=== PATIENT | male | born 1975 | race Caucasian/White ===

== ENCOUNTER 2018-02-19 08:22 | Emergency (ER) | END 2018-02-19 10:02 | disposition home or self-care (01) ==

== ENCOUNTER 2018-04-26 10:49 | Inpatient (IN) | END 2018-05-01 16:20 | disposition home health service (06) | DRG 629 ==

== ENCOUNTER 2018-05-15 17:23 | Emergency (ER) | END 2018-05-15 23:10 | disposition home or self-care (01) ==

== ENCOUNTER 2018-05-17 23:58 | Inpatient (IN) | END 2018-06-01 14:00 | disposition home health service (06) | DRG 907 ==

== ENCOUNTER 2019-04-21 20:24 | Inpatient (IN) | payer OTHER ==
[~2019-04-21] VITALS: Ht 157.5 cm; Wt 89.0 kg
[~2019-04-21 20:24] MED LIST: AMLO-147 PO; CIPR-193 PO; HYDR-3670 PO; Insulin Glargine SC; LACT1CAP56 PO; NOVO3I SC
[2019-04-21] MEDS ORDERED: SODIUM CHLORIDE 0.9% 1L BAG IV* STA (20:31)
[2019-04-21] MEDS ORDERED: PIPER-TAZO 3.375 GM IV (PMX) 100 ML IVPB STA (20:31)
[2019-04-21] MEDS ORDERED: morphine 10 MG INJ IV ONE (21:30)
[2019-04-21] MEDS: LINEZOLID 600 MG/300 ML (PMX) 300 ML IVPB SCH (21:36)
[2019-04-21] MEDS ORDERED: ACETAMINOPHEN 325 MG TAB PO PRN (22:30)
[2019-04-21] MEDS ORDERED: ONDANSETRON 4 MG INJ IV PRN (22:30)
--- NOTE | 2019-04-21 22:57 | ERD ---
ER Documentation Chief Complaint Chief Complaint PT has a diabetic ulcer to L foot and is seen at the amputation cllinic HPI 43-year-old male presenting with left foot wound that seems to be infected. It has been red and swollen for the past 1 week with associated fevers. He is complaining of mild pain, 5 out of 10, aching. He has a history of osteomyelitis of the right foot which was treated. He was being treated by Dr. Celestin for the left foot ulcer but was lost to followup due to psych issues. ROS All systems reviewed and are negative except as per history of present illness. Medications Home Meds Active Scripts [Insulin Glargine] 100 UNITS/ML SOLN No Conflict Check, 30 UNITS SC DAILY@0800 for 30 Days, #1 BOX 9 Refills Prov:PAT PINTO 06/01/18 Insulin Aspart* (Novolog Insulin Pen*) 100 Unit/Ml Soln, 7 UNIT SC WITH MEALS for 30 Days, #1 BOX 9 Refills Prov:PAT PINTO 06/01/18 Hydralazine Hcl* (Hydralazine Hcl*) 10 Mg Tablet, 10 MG PO Q8 for 30 Days, #90 TAB 3 Refills Prov:PAT PINTO 06/01/18 Amlodipine Besylate* (Amlodipine Besylate*) 10 Mg Tablet, 10 MG PO DAILY, #30 TAB 3 Refills Prov:PAT PINTO 06/01/18 Ciprofloxacin Hcl* (Ciprofloxacin Hcl*) 250 Mg Tablet, 250 MG PO DAILY@06 for 33 Days, #33 TAB Prov:PAT PINTO 06/01/18 Reported Medications Lactobacillus Combo No.11 (Probiotic) 1 Each Cap.sprink, 1 CAP PO DAILY, CAP 05/17/18 Allergies Allergies: Coded Allergies: vancomycin (Unverified Allergy, Unknown, 04/21/19) PMhx/Soc History of Surgery: Yes (Right ankle surgery, Right big toe I&D) Anesthesia Reaction: No Hx Neurological Disorder: No Hx Respiratory Disorders: No Hx Cardiac Disorders: Yes (HTN) Hx Psychiatric Problems: Yes (DEPRESSION, ANXIETY) Hx Miscellaneous Medical Probl: No Hx Alcohol Use: Yes (SOMETIMES) Hx Substance Use: Yes (MARIJUANA) Hx Tobacco Use: Yes Smoking Status: Former smoker FmHx Family History: No coronary disease Physical Exam Vitals Vital Signs Date Temp Pulse Resp B/P (MAP) Pulse Ox O2 O2 Flow FiO2 Time Delivery Rate 04/21/19 99.0 93 20 198/107 100 Room Air 21:43 (137) 04/21/19 92 16 182/100 100 Room Air 20:50 (127) 04/21/19 100.7 97 24 130/84 100 20:28 (99) Physical Exam Const: No acute distress Head: Atraumatic Eyes: Normal Conjunctiva ENT: Normal External Ears, Nose and Mouth. Neck: Full range of motion. No meningismus. Resp: Clear to auscultation bilaterally Cardio: Tachycardic rhythm, no murmurs Abd: Soft, non tender, non distended. Normal bowel sounds Skin: No petechiae or rashes Back: No midline or flank tenderness Ext: No cyanosis, or edema. Foul-smelling left foot ulcer at the base of the first metatarsophalangeal joint with surrounding erythema, swelling and underlying abscess. Wound is foul-smelling. Neur: Awake and alert Psych: Normal Mood and Affect Result Diagram: 04/21/19204404/21/192044 Results 24 hrs Laboratory Tests Test 04/21/19 20:45 04/21/19 20:48 White Blood Count 15.0 10^3/ul Red Blood Count 4.30 10^6/ul Hemoglobin 10.8 g/dl Hematocrit 32.7 % Mean Corpuscular Volume 76.0 fl Mean Corpuscular Hemoglobin 25.1 pg Mean Corpuscular Hemoglobin Concent 33.0 g/dl Red Cell Distribution Width 12.6 % Platelet Count 332 10^3/UL Mean Platelet Volume 10.8 fl Immature Granulocytes % 0.600 % Neutrophils % 78.4 % Lymphocytes % 12.2 % Monocytes % 7.4 % Eosinophils % 1.1 % Basophils % 0.3 % Nucleated Red Blood Cells % 0.0 /100WBC Immature Granulocytes # 0.090 10^3/ul Neutrophils # 11.7 10^3/ul Lymphocytes # 1.8 10^3/ul Monocytes # 1.1 10^3/ul Eosinophils # 0.2 10^3/ul Basophils # 0.0 10^3/ul Nucleated Red Blood Cells # 0.0 10^3/ul Erythrocyte Sedimentation Rate 126 mm/Hr Prothrombin Time 13.2 Sec Prothrombin Time Ratio 1.0 INR International Normalized Ratio 0.99 Activated Partial Thromboplast Time 29.4 Sec Sodium Level 133 mmol/L Potassium Level 4.3 mmol/L Chloride Level 96 mmol/L Carbon Dioxide Level 24 mmol/L Anion Gap 13 Blood Urea Nitrogen 21 mg/dl Creatinine 1.61 mg/dl Est Glomerular Filtrat Rate mL/min 48 mL/min Glucose Level 238 mg/dl Calcium Level 9.2 mg/dl Total Bilirubin 0.5 mg/dl Direct Bilirubin 0.00 mg/dl Indirect Bilirubin 0.5 mg/dl Aspartate Amino Transf (AST/SGOT) 31 IU/L Alanine Aminotransferase (ALT/SGPT) 22 IU/L Alkaline Phosphatase 205 IU/L C-Reactive Protein 24.6 mg/dl Total Protein 8.5 g/dl Albumin 4.0 g/dl Globulin 4.50 g/dl Albumin/Globulin Ratio 0.88 POC Venous Lactate 1.5 mmol/L Current Medications Medications Dose Sig/Varghese Start Time Status Last (Trade) Ordered Route PRN Stop Time Admin Dose Reason Admin Sodium 1,780 ml BOLUS OVER 2 04/21/19 DC 04/21/19 Chloride HOURS STAT 20:31 04/21/19 20:44 (NS) IV* 20:39 Piperacillin 100 ml @ ONCE STAT 04/21/19 DC 04/21/19 Sod/ 200 mls/hr IVPB 20:31 04/21/19 20:44 Tazobactam 21:00 Sod Linezolid 300 ml @ Q12 IVPB 04/21/19 04/21/19 300 mls/hr 21:00 21:36 Morphine 6 mg ONCE ONCE 04/21/19 DC Sulfate IV 21:30 04/21/19 (morphine) 21:31 Ondansetron 4 mg BRIDGE ORDER 04/21/19 HCl (Zofran PRN IV 22:30 04/22/19 Inj) NAUSEA/VOMITI 22:29 NG 650 mg ER BRIDGE 04/21/19 Acetaminophen PRN PO 22:30 04/22/19 (Tylenol .MILD PAIN 22:29 Tab) 1-3 OR TEMP Procedures/MDM EMERGENT LABS AND DIAGNOSTIC STUDIES: Lab Results above were reviewed and interpreted by me. CBC: Leukocytosis concerning for infection. Mild anemia CMP: Elevated creatinine, consistent with chronic renal insufficiency. Hyperglycemic without evidence of acidosis. No evidence of clinically significant electrolyte abnormality, acidosis, liver disease, or biliary obstruction Lactate within normal limits without evidence of sepsis or tissue hypoperfusion Elevated ESR and CRP, expected in the setting of infection 12-lead EKG was interpreted by Rivka Cutler MD: Normal Sinus Rhythm with ventricular rate of 91 beats per minute Normal axis Normal intervals No acute ST or T wave changes suggestive of acute ischemia or STEMI. Radiology Results as interpreted by Radiology below were reviewed by Mak Cutler MD: Chest x-ray shows no acute abnormalities X-ray foot shows no bony destruction, soft tissue swelling noted Initial Nursing notes reviewed. Previous Medical Records requested via the Electronic Health Record. EMERGENCY DEPARTMENT COURSE / MEDICAL DECISION MAKING: Patient presents with evidence of sepsis due to left foot infection. Sepsis work-up was initiated upon arrival. There is no evidence of severe sepsis or septic shock at this time. He has been treated with IV fluids and IV antibiotics. Patient will require admission for further workup, source control, and IV antibiotics. Accepting Care Team: Current data and ongoing care discussed. Time: Time of admission Primary Provider: Dr. Schmidt Outstanding Data: none Departure Diagnosis: Primary Impression: Cellulitis of left foot Additional Impressions: Chronic ulcer of left foot Non-pressure ulcer stage: unspecified non-pressure ulcer stage Qualified Codes: L97.529 - Non-pressure chronic ulcer of other part of left foot with unspecified severity Sepsis Sepsis type: sepsis due to unspecified organism Qualified Codes: A41.9 - Sepsis, unspecified organism CKD (chronic kidney disease) Chronic kidney disease stage: unspecified stage Qualified Codes: N18.9 - Chronic kidney disease, unspecified Condition: JAKY Avendano MD Apr 21, 2019 22:57
--- NOTE | 2019-04-21 23:46 | HP ---
Date/Time of Note Date/Time of Note DATE: 04/21/19 TIME: 23:46 Assessment/Plan VTE Prophylaxis SCD applied (from Nsg): Yes Pharmacological prophylaxis: heparin Lines/Catheters IV Catheter Type (from Nrsg): Saline Lock Assessment/Plan Assessment/Plan 1. Sepsis, as evidenced by fever and leukocytosis, secondary to left foot cellu litis/ulcer -IV antibiotic, IV fluid -Podiatry, ID and wound care consult -Need for MRI per podiatry 2. Left foot cellulitis/ulcer: See #1 3. CKD: Improving 4. Diabetes: Insulin while in-house 5. Hypertension: Continue home meds, adjust as needed 6. Depression/anxiety: He said this was the result of being fired from his job about a year ago. Currently he said he is feeling well. Result Diagram: 04/21/19204404/21/192044 Results 24hrs Laboratory Tests Test 04/21/19 20:45 04/21/19 20:48 04/21/19 22:54 White Blood Count 15.0 #H Red Blood Count 4.30 L Hemoglobin 10.8 L Hematocrit 32.7 L Mean Corpuscular Volume 76.0 L Mean Corpuscular Hemoglobin 25.1 L Mean Corpuscular Hemoglobin Concent 33.0 Red Cell Distribution Width 12.6 Platelet Count 332 # Mean Platelet Volume 10.8 H Immature Granulocytes % 0.600 H Neutrophils % 78.4 H Lymphocytes % 12.2 L Monocytes % 7.4 Eosinophils % 1.1 Basophils % 0.3 Nucleated Red Blood Cells % 0.0 Immature Granulocytes # 0.090 H Neutrophils # 11.7 H Lymphocytes # 1.8 Monocytes # 1.1 H Eosinophils # 0.2 Basophils # 0.0 Nucleated Red Blood Cells # 0.0 Erythrocyte Sedimentation Rate 126 H Prothrombin Time 13.2 Prothrombin Time Ratio 1.0 INR International Normalized Ratio 0.99 Activated Partial Thromboplast Time 29.4 Sodium Level 133 L Potassium Level 4.3 Chloride Level 96 L Carbon Dioxide Level 24 Anion Gap 13 Blood Urea Nitrogen 21 H Creatinine 1.61 H Est Glomerular Filtrat Rate mL/min 48 L Glucose Level 238 H Calcium Level 9.2 Total Bilirubin 0.5 Direct Bilirubin 0.00 Indirect Bilirubin 0.5 Aspartate Amino Transf (AST/SGOT) 31 Alanine Aminotransferase (ALT/SGPT) 22 Alkaline Phosphatase 205 H C-Reactive Protein 24.6 H Total Protein 8.5 H Albumin 4.0 Globulin 4.50 H Albumin/Globulin Ratio 0.88 POC Venous Lactate 1.5 Lactic Acid Level 1.3 HPI/ROS Admit Date/Time Admit Date/Time Hx of Present Illness Patient is a 51-year-old male with a history of hypertension, diabetes, CKD, depression/anxiety, right foot osteomyelitis who presents the ER complaining of left foot ulcer. He said that this problem is been going on for about a year. He said he had some ulceration which was made worse because of his previous working environment. 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 When he presented to ER, he was febrile with temperature 100.7, WBC 15,000. X- ray of the left foot shows Moderate cellulitis with subjacent emphysema in the first digit. PMH/Family/Social Past Medical History Medical History: other (See HPI) Medications Current Medications Linezolid 300 ml @ 300 mls/hr Q12 IVPB Last administered on 04/21/19at 21:36; Admin Dose 300 MLS/HR; Start 04/21/19 at 21:00 Ondansetron HCl (Zofran Inj) 4 mg BRIDGE ORDER PRN IV NAUSEA/VOMITING; Start 04/21/19 at 22:30; Stop 04/22/19 at 22:29 Acetaminophen (Tylenol Tab) 650 mg ER BRIDGE PRN PO .MILD PAIN 1-3 OR TEMP; Start 04/21/19 at 22:30; Stop 04/22/19 at 22:29 Coded Allergies: vancomycin (Unverified Allergy, Unknown, 04/21/19) Past Surgical History Past Surgical Hx: other (See HPI) Family History Significant Family History: no pertinent family hx Social History Alcohol Use: other Smoking Status: Former smoker Drug Use: other Exam/Review of Systems Vital Signs Vitals Vital Signs Date Temp Pulse Resp B/P (MAP) Pulse Ox O2 O2 Flow FiO2 Time Delivery Rate 04/21/19 99.0 93 20 198/107 100 Room Air 21:43 (137) Exam Constitutional: alert, oriented, well developed Head: normocephalic, atraumatic Eyes: EOMI, PERRL Respiratory: clear to auscultation, normal air movement Cardiovascular: regular rate and rhythm, nl pulses Gastrointestinal: soft, non-tender Extremities: other (Left foot cellulitis/ulcer) TANIA SESAY MD Apr 21, 2019 23:46
[2019-04-21] MEDS ORDERED: ONDANSETRON 4 MG INJ IV STA (23:57)
[2019-04-22] VITALS (21 sets, daily range): BP systolic 120–184; BP diastolic 70–103; PULSE 70–101; RESP 16–19; Ht 157.5 cm; Wt 89.0 kg
[2019-04-22] MEDS ORDERED: FAMOTIDINE 20 MG INJ IV ONE
[2019-04-22] MEDS ORDERED: LIDOCAINE/MYLANTA 40 ML BTL PO ONE
[2019-04-22] MEDS ORDERED: CHLO25TA2 PO (01:07)
[2019-04-22] MEDS ORDERED: GABA100C14 PO (01:07)
[2019-04-22] MEDS ORDERED: OXCA300T41 PO (01:07)
[2019-04-22] MEDS ORDERED: BUSP10TA2 PO (01:07)
[2019-04-22] MEDS ORDERED: MTF1000T PO (01:07)
[2019-04-22] MEDS ORDERED: LISI-471 PO (01:07)
[2019-04-22] MEDS ORDERED: INSU100I33 SC (01:10)
[2019-04-22] MEDS ORDERED: GLUCAGON 1 MG INJ IM PRN (01:30)
[2019-04-22] MEDS ORDERED: DEXTROSE 50% 50 ML SYRINGE IV PRN ×2 (01:30)
[2019-04-22] MEDS ORDERED: GLUCOSE GEL 15 GRAM TUBE BUCCAL PRN (01:30)
[2019-04-22] MEDS ORDERED: GLUCOSE GEL 15 GRAM TUBE PO PRN ×2 (01:30)
[2019-04-22] MEDS ORDERED: PENDING SANTYL ORDER FOR WOUND CARE XX PRN (02:00)
[2019-04-22] MEDS: ACCU-CHEK XX SCH (02:00)
[2019-04-22] MEDS: SOD CHLORIDE 0.9% 1,000 ML IV SCH ×4 (03:05→23:18)
[2019-04-22] MEDS ORDERED: GABAPENTIN 100 MG CAP PO ONE (04:30)
[2019-04-22] MEDS ORDERED: INSULIN ASPART [NOVOLOG] 3 ML PEN SC SCH ×2 (08:00→13:00)
[2019-04-22] MEDS: INSULIN GLARGINE [LANTus] (100 UNITS/ML) SYG SC SCH (08:28)
[2019-04-22] MEDS: INSULIN ASPART [NOVOLOG] 3 ML PEN SC SCH ×5 (08:28→21:03)
[2019-04-22] MEDS: BUSPIRONE 10 MG TAB PO SCH (08:58)
[2019-04-22] MEDS: OXCARBAZEPINE 300 MG TAB PO SCH ×2 (08:58→20:59)
[2019-04-22] MEDS: GABAPENTIN 100 MG CAP PO SCH ×3 (08:58→21:00)
[2019-04-22] MEDS: LINEZOLID 600 MG/300 ML (PMX) 300 ML IVPB SCH (08:59)
[2019-04-22] MEDS: CHLORTHALIDONE 25 MG TAB PO SCH (08:59)
[2019-04-22] MEDS: COLLAGENASE 5 GM (UD JAR) TOP SCH (08:59)
[2019-04-22] MEDS ORDERED: LISINOPRIL 20 MG TAB PO SCH (09:00)
[2019-04-22] MEDS ORDERED: AMLODIPINE 10 MG TAB PO SCH (09:00)
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
[2019-04-22] MEDS ORDERED: POLYMYXIN B 500000 UNIT INJ ONE (12:50)
[2019-04-22] MEDS ORDERED: BACITRACIN 50000 UNITS INJ ONE (12:51)
[2019-04-22] MEDS ORDERED: POLYMYXIN/BACITRACIN 1L IRRIG ONE (12:51)
[2019-04-22] MEDS: AMLODIPINE 5 MG TAB PO SCH (13:00)
--- NOTE | 2019-04-22 13:31 | HPN ---
Date/Time of Note Date/Time of Note DATE: 04/22/19 TIME: 13:31 Interval H&P Admission Note Pt. seen H&P reviewed: No system changes VINICIUS ARRIETA DPM Apr 22, 2019 13:31
--- NOTE | 2019-04-22 13:34 | PN ---
Date/Time of Note Date/Time of Note DATE: 04/22/19 TIME: 13:34 Assessment/Plan VTE Prophylaxis Risk score (from Ns)>0 risk: 4 SCD applied (from Ns): No Lines/Catheters IV Catheter Type (from [facility]): Peripheral IV Assessment/Plan Result Diagram: 04/22/19 0600 04/22/19 0600 Results 24hrs Laboratory Tests Test 04/21/19 20:45 04/21/19 20:48 04/21/19 22:54 04/22/19 00:54 White Blood Count 15.0 #H Red Blood Count 4.30 L Hemoglobin 10.8 L Hematocrit 32.7 L Mean Corpuscular Volume 76.0 L Mean Corpuscular 25.1 L Hemoglobin Mean Corpuscular 33.0 Hemoglobin Concent Red Cell Distribution 12.6 Width Platelet Count 332 # Mean Platelet Volume 10.8 H Immature Granulocytes % 0.600 H Neutrophils % 78.4 H Lymphocytes % 12.2 L Monocytes % 7.4 Eosinophils % 1.1 Basophils % 0.3 Nucleated Red Blood 0.0 Cells % Immature Granulocytes # 0.090 H Neutrophils # 11.7 H Lymphocytes # 1.8 Monocytes # 1.1 H Eosinophils # 0.2 Basophils # 0.0 Nucleated Red Blood 0.0 Cells # Erythrocyte 126 H Sedimentation Rate Prothrombin Time 13.2 Prothrombin Time Ratio 1.0 INR International 0.99 Normalized Ratio Activated 29.4 Partial Thromboplast Time Sodium Level 133 L Potassium Level 4.3 Chloride Level 96 L Carbon Dioxide Level 24 Anion Gap 13 Blood Urea Nitrogen 21 H Creatinine 1.61 H Est Glomerular Filtrat 48 L Rate mL/min Glucose Level 238 H Calcium Level 9.2 Total Bilirubin 0.5 Direct Bilirubin 0.00 Indirect Bilirubin 0.5 Aspartate Amino 31 Transf (AST/SGOT) Alanine 22 Aminotransferase (ALT/SG PT) Alkaline Phosphatase 205 H C-Reactive Protein 24.6 H Total Protein 8.5 H Albumin 4.0 Globulin 4.50 H Albumin/Globulin Ratio 0.88 POC Venous Lactate 1.5 Lactic Acid Level 1.3 Bedside Glucose 191 Test 04/22/19 00:56 04/22/19 05:56 04/22/19 06:00 04/22/19 08:03 Lactic Acid Level 1.1 Erythrocyte 108 H Sedimentation Rate C-Reactive Protein 21.5 H Procalcitonin 0.39 H White Blood Count 12.1 H Red Blood Count 3.91 L Hemoglobin 10.0 L Hematocrit 30.2 L Mean Corpuscular Volume 77.2 L Mean Corpuscular 25.6 L Hemoglobin Mean Corpuscular 33.1 Hemoglobin Concent Red Cell Distribution 12.7 Width Platelet Count 296 Mean Platelet Volume 11.0 H Immature Granulocytes % 0.700 H Neutrophils % 75.9 Lymphocytes % 12.9 L Monocytes % 9.4 Eosinophils % 0.7 Basophils % 0.4 Nucleated Red Blood 0.0 Cells % Immature Granulocytes # 0.080 H Neutrophils # 9.2 H Lymphocytes # 1.6 Monocytes # 1.1 H Eosinophils # 0.1 Basophils # 0.1 Nucleated Red Blood 0.0 Cells # Sodium Level 137 Potassium Level 4.3 Chloride Level 104 Carbon Dioxide Level 24 Anion Gap 9 Blood Urea Nitrogen 16 Creatinine 1.34 H Est Glomerular Filtrat 59 L Rate mL/min Glucose Level 205 Hemoglobin A1c 9.4 H Calcium Level 8.7 Total Bilirubin 0.4 Direct Bilirubin 0.00 Indirect Bilirubin 0.4 Aspartate Amino 25 Transf (AST/SGOT) Alanine 26 Aminotransferase (ALT/SG PT) Alkaline Phosphatase 151 H Total Protein 7.4 # Albumin 3.5 Globulin 3.90 H Albumin/Globulin Ratio 0.89 Triglycerides Level 142 Cholesterol Level 124 LDL Cholesterol, 77 Calculated HDL Cholesterol 19 L Cholesterol/HDL Ratio 6.5 Bedside Glucose 175 Test 04/22/19 12:46 Bedside Glucose 189 Exam/Review of Systems Exam Vitals Vital Signs Date Temp Pulse Resp B/P (MAP) Pulse Ox O2 O2 Flow FiO2 Time Delivery Rate 04/22/19 98.0 86 19 157/89 98 Room Air 08:00 (111) Intake and Output 04/21/19 04/21/19 04/22/19 1515:00 23:00 07:00 IntakeIntake Total 200 ml BalanceBalance 200 ml Results Results 24hrs Laboratory Tests Test 04/21/19 20:45 04/21/19 20:48 04/21/19 22:54 04/22/19 00:54 White Blood Count 15.0 #H Red Blood Count 4.30 L Hemoglobin 10.8 L Hematocrit 32.7 L Mean Corpuscular Volume 76.0 L Mean Corpuscular 25.1 L Hemoglobin Mean Corpuscular 33.0 Hemoglobin Concent Red Cell Distribution 12.6 Width Platelet Count 332 # Mean Platelet Volume 10.8 H Immature Granulocytes % 0.600 H Neutrophils % 78.4 H Lymphocytes % 12.2 L Monocytes % 7.4 Eosinophils % 1.1 Basophils % 0.3 Nucleated Red Blood 0.0 Cells % Immature Granulocytes # 0.090 H Neutrophils # 11.7 H Lymphocytes # 1.8 Monocytes # 1.1 H Eosinophils # 0.2 Basophils # 0.0 Nucleated Red Blood 0.0 Cells # Erythrocyte 126 H Sedimentation Rate Prothrombin Time 13.2 Prothrombin Time Ratio 1.0 INR International 0.99 Normalized Ratio Activated 29.4 Partial Thromboplast Time Sodium Level 133 L Potassium Level 4.3 Chloride Level 96 L Carbon Dioxide Level 24 Anion Gap 13 Blood Urea Nitrogen 21 H Creatinine 1.61 H Est Glomerular Filtrat 48 L Rate mL/min Glucose Level 238 H Calcium Level 9.2 Total Bilirubin 0.5 Direct Bilirubin 0.00 Indirect Bilirubin 0.5 Aspartate Amino 31 Transf (AST/SGOT) Alanine 22 Aminotransferase (ALT/SG PT) Alkaline Phosphatase 205 H C-Reactive Protein 24.6 H Total Protein 8.5 H Albumin 4.0 Globulin 4.50 H Albumin/Globulin Ratio 0.88 POC Venous Lactate 1.5 Lactic Acid Level 1.3 Bedside Glucose 191 Test 04/22/19 00:56 04/22/19 05:56 04/22/19 06:00 04/22/19 08:03 Lactic Acid Level 1.1 Erythrocyte 108 H Sedimentation Rate C-Reactive Protein 21.5 H Procalcitonin 0.39 H White Blood Count 12.1 H Red Blood Count 3.91 L Hemoglobin 10.0 L Hematocrit 30.2 L Mean Corpuscular Volume 77.2 L Mean Corpuscular 25.6 L Hemoglobin Mean Corpuscular 33.1 Hemoglobin Concent Red Cell Distribution 12.7 Width Platelet Count 296 Mean Platelet Volume 11.0 H Immature Granulocytes % 0.700 H Neutrophils % 75.9 Lymphocytes % 12.9 L Monocytes % 9.4 Eosinophils % 0.7 Basophils % 0.4 Nucleated Red Blood 0.0 Cells % Immature Granulocytes # 0.080 H Neutrophils # 9.2 H Lymphocytes # 1.6 Monocytes # 1.1 H Eosinophils # 0.1 Basophils # 0.1 Nucleated Red Blood 0.0 Cells # Sodium Level 137 Potassium Level 4.3 Chloride Level 104 Carbon Dioxide Level 24 Anion Gap 9 Blood Urea Nitrogen 16 Creatinine 1.34 H Est Glomerular Filtrat 59 L Rate mL/min Glucose Level 205 Hemoglobin A1c 9.4 H Calcium Level 8.7 Total Bilirubin 0.4 Direct Bilirubin 0.00 Indirect Bilirubin 0.4 Aspartate Amino 25 Transf (AST/SGOT) Alanine 26 Aminotransferase (ALT/SG PT) Alkaline Phosphatase 151 H Total Protein 7.4 # Albumin 3.5 Globulin 3.90 H Albumin/Globulin Ratio 0.89 Triglycerides Level 142 Cholesterol Level 124 LDL Cholesterol, 77 Calculated HDL Cholesterol 19 L Cholesterol/HDL Ratio 6.5 Bedside Glucose 175 Test 04/22/19 12:46 Bedside Glucose 189 Medications Medication Current Medications Linezolid 300 ml @ 300 mls/hr Q12 IVPB Last administered on 04/22/19at 08:59; Admin Dose 300 MLS/HR; Start 04/21/19 at 21:00 Ondansetron HCl (Zofran Inj) 4 mg BRIDGE ORDER PRN IV NAUSEA/VOMITING; Start 04/21/19 at 22:30; Stop 04/22/19 at 22:29 Acetaminophen (Tylenol Tab) 650 mg ER BRIDGE PRN PO .MILD PAIN 1-3 OR TEMP; Start 04/21/19 at 22:30; Stop 04/22/19 at 22:29 Diagnostic Test (Pha) (Accu-Chek) 1 ea 02 XX ; Start 04/22/19 at 02:00 Insulin Aspart (Novolog Insulin Pen) NOVOLOG *MILD* ALGORITHM WITH MEALS BEDTIME SC Last administered on 04/22/19at 08:29; Admin Dose 1 UNIT; Start 04/22/19 at 08:00 Miscellaneous Information 1 ea NOTE XX ; Start 04/22/19 at 01:30 Glucose (Glutose) 15 gm Q15M PRN PO DECREASED GLUCOSE; Start 04/22/19 at 01:30 Glucose (Glutose) 22.5 gm Q15M PRN PO DECREASED GLUCOSE; Start 04/22/19 at 01:30 Dextrose (D50w Syringe) 25 ml Q15M PRN IV DECREASED GLUCOSE; Start 04/22/19 at 01:30 Dextrose (D50w Syringe) 50 ml Q15M PRN IV DECREASED GLUCOSE; Start 04/22/19 at 01:30 Glucagon (Glucagen) 1 mg Q15M PRN IM DECREASED GLUCOSE; Start 04/22/19 at 01:30 Glucose (Glutose) 15 gm Q15M PRN BUCCAL DECREASED GLUCOSE; Start 04/22/19 at 01:30 Amlodipine Besylate (Norvasc) 10 mg DAILY PO Last administered on 04/22/19 08:59; Admin Dose 10 MG; Start 04/22/19 at 09:00 Buspirone HCl (Buspar) 10 mg DAILY PO Last administered on 04/22/19 08:58; Admi n Dose 10 MG; Start 04/22/19 at 09:00 Chlorthalidone (Hygroton) 25 mg DAILY PO Last administered on 04/22/19 08:59; Admin Dose 25 MG; Start 04/22/19 at 09:00 Gabapentin (Neurontin) 100 mg TID PO Last administered on 04/22/19 08:58; Admin Dose 100 MG; Start 04/22/19 at 09:00 Hydralazine HCl (Apresoline) 10 mg Q8 PO Last administered on 04/22/19 03:19; Admin Dose 10 MG; Start 04/22/19 at 02:00 Insulin Aspart (Novolog Insulin Pen) 7 unit WITH MEALS SC Last administered on 04/22/19 08:28; Admin Dose 7 UNIT; Start 04/22/19 at 07:35 Insulin Glargine (Lantus) 28 units WITH BREAKFAST SC Last administered on 04/22/19 08:28; Admin Dose 28 UNITS; Start 04/22/19 at 08:00 Lisinopril (Zestril) 20 mg DAILY PO Last administered on 04/22/19 08:59; Admin Dose 20 MG; Start 04/22/19 at 09:00 Oxcarbazepine (Trileptal) 300 mg BID PO Last administered on 04/22/19 08:58; Admin Dose 300 MG; Start 04/22/19 at 09:00 Sodium Chloride 1,000 ml @ 100 mls/hr Q10H IV Last administered on 04/22/19 03:05; Admin Dose 100 MLS/HR; Start 04/22/19 at 02:00 Miscellaneous Information (Pending Santyl Order For Wound Care) This patient mario... PRN PRN XX WOUND CARE; Start 04/22/19 at 02:00 Collagenase (Santyl) 1 applic DAILY TOP Last administered on 04/22/19 08:59; Admin Dose 1 APPLIC; Start 04/22/19 at 09:00 SUZIE CESPEDES NP Apr 22, 2019 13:34
[2019-04-22] MEDS ORDERED: SOD CHLORIDE 0.9% 500 ML IV ONE (14:00)
--- NOTE | 2019-04-22 14:08 | PN ---
Date/Time of Note Date/Time of Note DATE: 04/22/19 TIME: 14:07 Assessment/Plan VTE Prophylaxis Risk score (from Nsg)>0 risk: 4 SCD applied (from Ns): Yes SCD contraindicated: other (rt leg) Pharmacological prophylaxis: NA/contraindicated Pharm contraindication: surgical contra Lines/Catheters IV C[facility] Type (from [facility]): Peripheral IV Assessment/Plan Hospital Course SUBJECTIVE: Lying in bed, having low-grade fevers. OBJECTIVE: Vital signs-see below PHYSICAL EXAM: Constitutional: Adequately built,not in acute distress. HEENT: Head atraumatic and normocephalic. Eyes: Extraocular muscles intact. Anicteric sclerae. Pupils equal bilaterally, reactive to light. NECK: Supple without lymph node. CHEST: Clear and good breath sounds equally. No wheezing. No rhonchi. HEART: S1, S2. Regular rate and rhythm. ABDOMEN: Soft/non tender with no rebound tenderness. Bowel sounds were present. EXTREMITIES:Left hallux ulceration with erythema/swelling/macerated skin with foul order. DP/PT pulses palpable. NEUROLOGIC: Alert and oriented x3. No focal deficit. No sensory deficit. PSYCHOSOCIAL: No signs of depression. INTEGUMENTARY: No open wounds. ASSESSMENT AND PLAN:43 yo M w/dm2,rt foot om, admitted with left big toe ulceration and foot cellulitis.. Sepsis Source:left foot ulceration -Empiric antimicrobials and ID consultation for further antibiotic regimen. -Blood/urine/wound cultures Left foot gas gangrene/cellulitis -Appreciate podiatry consultation and plan is emergent I&D. -MRI and additional x-rays has been ordered. -broad spectrum abx-DC zyvox. Start merrem+dapto+clinda -ID consult requested. -Follow-up wound cultures. -Wound care LACEY vs CKD -Renal fxn improving on fluids -hold acei -cont. gentle hydration -monitor renal fxn -avoid nephrotoxins DMII -Basal/bolus insulin. -Carbohydrate controlled diet. Essential hypertension -hold acei 2/2 lacey -hydralazine 25 q8h,amlodipne 5 dvt ppx:hold atc today for possible OR. SCDs Rt leg. Dispo:f/u podiatry recs.devante needing OR patient was seen in collaboration with Result Diagram: 04/22/19 0600 04/22/19 0600 Results 24hrs Laboratory Tests Test 04/21/19 20:45 04/21/19 20:48 04/21/19 22:54 04/22/19 00:54 White Blood Count 15.0 #H Red Blood Count 4.30 L Hemoglobin 10.8 L Hematocrit 32.7 L Mean Corpuscular Volume 76.0 L Mean Corpuscular 25.1 L Hemoglobin Mean Corpuscular 33.0 Hemoglobin Concent Red Cell Distribution 12.6 Width Platelet Count 332 # Mean Platelet Volume 10.8 H Immature Granulocytes % 0.600 H Neutrophils % 78.4 H Lymphocytes % 12.2 L Monocytes % 7.4 Eosinophils % 1.1 Basophils % 0.3 Nucleated Red Blood 0.0 Cells % Immature Granulocytes # 0.090 H Neutrophils # 11.7 H Lymphocytes # 1.8 Monocytes # 1.1 H Eosinophils # 0.2 Basophils # 0.0 Nucleated Red Blood 0.0 Cells # Erythrocyte 126 H Sedimentation Rate Prothrombin Time 13.2 Prothrombin Time Ratio 1.0 INR International 0.99 Normalized Ratio Activated 29.4 Partial Thromboplast Time Sodium Level 133 L Potassium Level 4.3 Chloride Level 96 L Carbon Dioxide Level 24 Anion Gap 13 Blood Urea Nitrogen 21 H Creatinine 1.61 H Est Glomerular Filtrat 48 L Rate mL/min Glucose Level 238 H Calcium Level 9.2 Total Bilirubin 0.5 Direct Bilirubin 0.00 Indirect Bilirubin 0.5 Aspartate Amino 31 Transf (AST/SGOT) Alanine 22 Aminotransferase (ALT/SG PT) Alkaline Phosphatase 205 H C-Reactive Protein 24.6 H Total Protein 8.5 H Albumin 4.0 Globulin 4.50 H Albumin/Globulin Ratio 0.88 POC Venous Lactate 1.5 Lactic Acid Level 1.3 Bedside Glucose 191 Test 04/22/19 00:56 04/22/19 05:56 04/22/19 06:00 04/22/19 08:03 Lactic Acid Level 1.1 Erythrocyte 108 H Sedimentation Rate C-Reactive Protein 21.5 H Procalcitonin 0.39 H White Blood Count 12.1 H Red Blood Count 3.91 L Hemoglobin 10.0 L Hematocrit 30.2 L Mean Corpuscular Volume 77.2 L Mean Corpuscular 25.6 L Hemoglobin Mean Corpuscular 33.1 Hemoglobin Concent Red Cell Distribution 12.7 Width Platelet Count 296 Mean Platelet Volume 11.0 H Immature Granulocytes % 0.700 H Neutrophils % 75.9 Lymphocytes % 12.9 L Monocytes % 9.4 Eosinophils % 0.7 Basophils % 0.4 Nucleated Red Blood 0.0 Cells % Immature Granulocytes # 0.080 H Neutrophils # 9.2 H Lymphocytes # 1.6 Monocytes # 1.1 H Eosinophils # 0.1 Basophils # 0.1 Nucleated Red Blood 0.0 Cells # Sodium Level 137 Potassium Level 4.3 Chloride Level 104 Carbon Dioxide Level 24 Anion Gap 9 Blood Urea Nitrogen 16 Creatinine 1.34 H Est Glomerular Filtrat 59 L Rate mL/min Glucose Level 205 Hemoglobin A1c 9.4 H Calcium Level 8.7 Total Bilirubin 0.4 Direct Bilirubin 0.00 Indirect Bilirubin 0.4 Aspartate Amino 25 Transf (AST/SGOT) Alanine 26 Aminotransferase (ALT/SG PT) Alkaline Phosphatase 151 H Total Protein 7.4 # Albumin 3.5 Globulin 3.90 H Albumin/Globulin Ratio 0.89 Triglycerides Level 142 Cholesterol Level 124 LDL Cholesterol, 77 Calculated HDL Cholesterol 19 L Cholesterol/HDL Ratio 6.5 Bedside Glucose 175 Test 04/22/19 12:46 Bedside Glucose 189 Exam/Review of Systems Exam Vitals Vital Signs Date Temp Pulse Resp B/P (MAP) Pulse Ox O2 O2 Flow FiO2 Time Delivery Rate 04/22/19 98.0 86 19 157/89 98 Room Air 08:00 (111) Intake and Output 04/21/19 04/21/19 04/22/19 1515:00 23:00 07:00 IntakeIntake Total 200 ml BalanceBalance 200 ml Results Results 24hrs Laboratory Tests Test 04/21/19 20:45 04/21/19 20:48 04/21/19 22:54 04/22/19 00:54 White Blood Count 15.0 #H Red Blood Count 4.30 L Hemoglobin 10.8 L Hematocrit 32.7 L Mean Corpuscular Volume 76.0 L Mean Corpuscular 25.1 L Hemoglobin Mean Corpuscular 33.0 Hemoglobin Concent Red Cell Distribution 12.6 Width Platelet Count 332 # Mean Platelet Volume 10.8 H Immature Granulocytes % 0.600 H Neutrophils % 78.4 H Lymphocytes % 12.2 L Monocytes % 7.4 Eosinophils % 1.1 Basophils % 0.3 Nucleated Red Blood 0.0 Cells % Immature Granulocytes # 0.090 H Neutrophils # 11.7 H Lymphocytes # 1.8 Monocytes # 1.1 H Eosinophils # 0.2 Basophils # 0.0 Nucleated Red Blood 0.0 Cells # Erythrocyte 126 H Sedimentation Rate Prothrombin Time 13.2 Prothrombin Time Ratio 1.0 INR International 0.99 Normalized Ratio Activated 29.4 Partial Thromboplast Time Sodium Level 133 L Potassium Level 4.3 Chloride Level 96 L Carbon Dioxide Level 24 Anion Gap 13 Blood Urea Nitrogen 21 H Creatinine 1.61 H Est Glomerular Filtrat 48 L Rate mL/min Glucose Level 238 H Calcium Level 9.2 Total Bilirubin 0.5 Direct Bilirubin 0.00 Indirect Bilirubin 0.5 Aspartate Amino 31 Transf (AST/SGOT) Alanine 22 Aminotransferase (ALT/SG PT) Alkaline Phosphatase 205 H C-Reactive Protein 24.6 H Total Protein 8.5 H Albumin 4.0 Globulin 4.50 H Albumin/Globulin Ratio 0.88 POC Venous Lactate 1.5 Lactic Acid Level 1.3 Bedside Glucose 191 Test 04/22/19 00:56 04/22/19 05:56 04/22/19 06:00 04/22/19 08:03 Lactic Acid Level 1.1 Erythrocyte 108 H Sedimentation Rate C-Reactive Protein 21.5 H Procalcitonin 0.39 H White Blood Count 12.1 H Red Blood Count 3.91 L Hemoglobin 10.0 L Hematocrit 30.2 L Mean Corpuscular Volume 77.2 L Mean Corpuscular 25.6 L Hemoglobin Mean Corpuscular 33.1 Hemoglobin Concent Red Cell Distribution 12.7 Width Platelet Count 296 Mean Platelet Volume 11.0 H Immature Granulocytes % 0.700 H Neutrophils % 75.9 Lymphocytes % 12.9 L Monocytes % 9.4 Eosinophils % 0.7 Basophils % 0.4 Nucleated Red Blood 0.0 Cells % Immature Granulocytes # 0.080 H Neutrophils # 9.2 H Lymphocytes # 1.6 Monocytes # 1.1 H Eosinophils # 0.1 Basophils # 0.1 Nucleated Red Blood 0.0 Cells # Sodium Level 137 Potassium Level 4.3 Chloride Level 104 Carbon Dioxide Level 24 Anion Gap 9 Blood Urea Nitrogen 16 Creatinine 1.34 H Est Glomerular Filtrat 59 L Rate mL/min Glucose Level 205 Hemoglobin A1c 9.4 H Calcium Level 8.7 Total Bilirubin 0.4 Direct Bilirubin 0.00 Indirect Bilirubin 0.4 Aspartate Amino 25 Transf (AST/SGOT) Alanine 26 Aminotransferase (ALT/SG PT) Alkaline Phosphatase 151 H Total Protein 7.4 # Albumin 3.5 Globulin 3.90 H Albumin/Globulin Ratio 0.89 Triglycerides Level 142 Cholesterol Level 124 LDL Cholesterol, 77 Calculated HDL Cholesterol 19 L Cholesterol/HDL Ratio 6.5 Bedside Glucose 175 Test 04/22/19 12:46 Bedside Glucose 189 Medications Medication Current Medications Linezolid 300 ml @ 300 mls/hr Q12 IVPB Last administered on 04/22/19at 08:59; Admin Dose 300 MLS/HR; Start 04/21/19 at 21:00 Ondansetron HCl (Zofran Inj) 4 mg BRIDGE ORDER PRN IV NAUSEA/VOMITING; Start 04/21/19 at 22:30; Stop 04/22/19 at 22:29 Acetaminophen (Tylenol Tab) 650 mg ER BRIDGE PRN PO .MILD PAIN 1-3 OR TEMP; Start 04/21/19 at 22:30; Stop 04/22/19 at 22:29 Diagnostic Test (Pha) (Accu-Chek) 1 ea 02 XX ; Start 04/22/19 at 02:00 Insulin Aspart (Novolog Insulin Pen) NOVOLOG *MILD* ALGORITHM WITH MEALS BEDTIME SC Last administered on 04/22/19at 08:29; Admin Dose 1 UNIT; Start 04/22/19 at 08:00 Miscellaneous Information 1 ea NOTE XX ; Start 04/22/19 at 01:30 Glucose (Glutose) 15 gm Q15M PRN PO DECREASED GLUCOSE; Start 04/22/19 at 01:30 Glucose (Glutose) 22.5 gm Q15M PRN PO DECREASED GLUCOSE; Start 04/22/19 at 01:30 Dextrose (D50w Syringe) 25 ml Q15M PRN IV DECREASED GLUCOSE; Start 04/22/19 at 01:30 Dextrose (D50w Syringe) 50 ml Q15M PRN IV DECREASED GLUCOSE; Start 04/22/19 at 01:30 Glucagon (Glucagen) 1 mg Q15M PRN IM DECREASED GLUCOSE; Start 04/22/19 at 01:30 Glucose (Glutose) 15 gm Q15M PRN BUCCAL DECREASED GLUCOSE; Start 04/22/19 at 01:30 Amlodipine Besylate (Norvasc) 10 mg DAILY PO Last administered on 04/22/19at 08:59; Admin Dose 10 MG; Start 04/22/19 at 09:00 Buspirone HCl (Buspar) 10 mg DAILY PO Last administered on 04/22/19 08:58; Admin Dose 10 MG; Start 04/22/19 at 09:00 Chlorthalidone (Hygroton) 25 mg DAILY PO Last administered on 04/22/19 08:59; Admin Dose 25 MG; Start 04/22/19 at 09:00 Gabapentin (Neurontin) 100 mg TID PO Last administered on 04/22/19 08:58; Admin Dose 100 MG; Start 04/22/19 at 09:00 Hydralazine HCl (Apresoline) 10 mg Q8 PO Last administered on 04/22/19 03:19; Admin Dose 10 MG; Start 04/22/19 at 02:00 Insulin Aspart (Novolog Insulin Pen) 7 unit WITH MEALS SC Last administered on 04/22/19 08:28; Admin Dose 7 UNIT; Start 04/22/19 at 07:35 Insulin Glargine (Lantus) 28 units WITH BREAKFAST SC Last administered on 04/22/19 08:28; Admin Dose 28 UNITS; Start 04/22/19 at 08:00 Lisinopril (Zestril) 20 mg DAILY PO Last administered on 04/22/19 08:59; Admin Dose 20 MG; Start 04/22/19 at 09:00 Oxcarbazepine (Trileptal) 300 mg BID PO Last administered on 04/22/19 08:58; Admin Dose 300 MG; Start 04/22/19 at 09:00 Sodium Chloride 1,000 ml @ 100 mls/hr Q10H IV Last administered on 04/22/19 03:05; Admin Dose 100 MLS/HR; Start 04/22/19 at 02:00 Miscellaneous Information (Pending Santyl Order For Wound Care) This patient mario... PRN PRN XX WOUND CARE; Start 04/22/19 at 02:00 Collagenase (Santyl) 1 applic DAILY TOP Last administered on 04/22/19 08:59; Admin Dose 1 APPLIC; Start 04/22/19 at 09:00 SUZIE CESPEDES NP Apr 22, 2019 14:08
--- NOTE | 2019-04-22 14:09 | PREAC ---
Date/Time of Note Date/Time of Note DATE: 04/22/19 TIME: 14:07 Anesthesia Eval and Record Evaluation Time Pre-Procedure Interview DATE: 04/22/19 TIME: 14:07 Age 43 Sex male NPO: 2 hrs Preoperative diagnosis left foot infection Planned procedure I&D Past Medical History Past Medical History: Includes Cardio: HTN Endo: Diabetes Pulm: Smoking Hx Renal: CKD Heme: Anemia Psych: Depression, Anxiety Recreational drugs: Marijuana Surgery & Anesthesia Issues No known issue Meds Anticoagulation: No Beta Kelly within 24 hr: No Reason Beta Kelly not given: Pt. not on B-Kelly Active Scripts [Insulin Glargine] 100 UNITS/ML SOLN No Conflict Check, 30 UNITS SC DAILY@0800 for 30 Days, #1 BOX 9 Refills Prov:PAT PINTO 06/01/18 Insulin Aspart* (Novolog Insulin Pen*) 100 Unit/Ml Soln, 7 UNIT SC WITH MEALS for 30 Days, #1 BOX 9 Refills Prov:PAT PINTO 06/01/18 Hydralazine Hcl* (Hydralazine Hcl*) 10 Mg Tablet, 10 MG PO Q8 for 30 Days, #90 TAB 3 Refills Prov:PAT PINTO 06/01/18 Amlodipine Besylate* (Amlodipine Besylate*) 10 Mg Tablet, 10 MG PO DAILY, #30 TAB 3 Refills Prov:PAT PINTO 06/01/18 Ciprofloxacin Hcl* (Ciprofloxacin Hcl*) 250 Mg Tablet, 250 MG PO DAILY@06 for 33 Days, #33 TAB Prov:PAT PINTO 06/01/18 Reported Medications Insulin Glargine,Hum.rec.anlog (Basaglar Eliseikpen U-100) 100 Unit/1 Ml Insuln.pen, 28 UNIT SC WITH BREAKFAST, EA 04/22/19 Gabapentin* (Gabapentin*) 100 Mg Capsule, 100 MG PO TID, #90 CAP 04/22/19 Lisinopril* (Lisinopril*) 20 Mg Tablet, 20 MG PO DAILY, #30 TAB 04/22/19 Metformin* (Glucophage*) 1,000 Mg Tablet, 1000 MG PO WITH BREAKFAST DINNE, #30 TAB 04/22/19 Oxcarbazepine* (Oxcarbazepine*) 300 Mg Tablet, 300 MG PO BID, TAB 04/22/19 Buspirone Hcl* (Buspirone Hcl*) 10 Mg Tab, 10 MG PO DAILY, TAB 04/22/19 Chlorthalidone* (Chlorthalidone*) 25 Mg Tablet, 25 MG PO DAILY, TAB 04/22/19 Lactobacillus Combo No.11 (Probiotic) 1 Each Cap.sprink, 1 CAP PO DAILY, CAP 05/17/18 Current Medications Ondansetron HCl (Zofran Inj) 4 mg BRIDGE ORDER PRN IV NAUSEA/VOMITING; Start 04/21/19 at 22:30; Stop 04/22/19 at 22:29 Acetaminophen (Tylenol Tab) 650 mg ER BRIDGE PRN PO .MILD PAIN 1-3 OR TEMP; Start 04/21/19 at 22:30; Stop 04/22/19 at 22:29 Diagnostic Test (Pha) (Accu-Chek) 1 ea 02 XX ; Start 04/22/19 at 02:00 Miscellaneous Information 1 ea NOTE XX ; Start 04/22/19 at 01:30 Glucose (Glutose) 15 gm Q15M PRN PO DECREASED GLUCOSE; Start 04/22/19 at 01:30 Glucose (Glutose) 22.5 gm Q15M PRN PO DECREASED GLUCOSE; Start 04/22/19 at 01:30 Dextrose (D50w Syringe) 25 ml Q15M PRN IV DECREASED GLUCOSE; Start 04/22/19 at 01:30 Dextrose (D50w Syringe) 50 ml Q15M PRN IV DECREASED GLUCOSE; Start 04/22/19 at 01:30 Glucagon (Glucagen) 1 mg Q15M PRN IM DECREASED GLUCOSE; Start 04/22/19 at 01:30 Glucose (Glutose) 15 gm Q15M PRN BUCCAL DECREASED GLUCOSE; Start 04/22/19 at 01:30 Amlodipine Besylate (Norvasc) 10 mg DAILY PO Last administered on 04/22/19at 08:59; Admin Dose 10 MG; Start 04/22/19 at 09:00 Buspirone HCl (Buspar) 10 mg DAILY PO Last administered on 04/22/19at 08:58; Admin Dose 10 MG; Start 04/22/19 at 09:00 Chlorthalidone (Hygroton) 25 mg DAILY PO Last administered on 04/22/19at 08:59; Admin Dose 25 MG; Start 04/22/19 at 09:00 Gabapentin (Neurontin) 100 mg TID PO Last administered on 04/22/19 08:58; Admin Dose 100 MG; Start 04/22/19 at 09:00 Insulin Aspart (Novolog Insulin Pen) 7 unit WITH MEALS SC Last administered on 04/22/19 08:28; Admin Dose 7 UNIT; Start 04/22/19 at 07:35; Status Hold Insulin Glargine (Lantus) 28 units WITH BREAKFAST SC Last administered on 04/22/19 08:28; Admin Dose 28 UNITS; Start 04/22/19 at 08:00 Lisinopril (Zestril) 20 mg DAILY PO Last administered on 04/22/19 08:59; Admin Dose 20 MG; Start 04/22/19 at 09:00; Status Hold Oxcarbazepine (Trileptal) 300 mg BID PO Last administered on 04/22/19 08:58; Admin Dose 300 MG; Start 04/22/19 at 09:00 Sodium Chloride 1,000 ml @ 100 mls/hr Q10H IV Last administered on 04/22/19 03:05; Admin Dose 100 MLS/HR; Start 04/22/19 at 02:00 Miscellaneous Information (Pending Santyl Order For Wound Care) This patient mario... PRN PRN XX WOUND CARE; Start 04/22/19 at 02:00 Collagenase (Santyl) 1 applic DAILY TOP Last administered on 04/22/19 08:59; Admin Dose 1 APPLIC; Start 04/22/19 at 09:00 Hydralazine HCl (Apresoline) 25 mg Q8 PO ; Start 04/22/19 at 14:00 Insulin Aspart (Novolog Insulin Pen) NOVOLOG *MILD* ALGORI... Q4 SC ; Start 04/22/19 at 13:00 Amlodipine Besylate (Norvasc) 5 mg DAILY PO ; Start 04/22/19 at 13:00 Sodium Chloride 500 ml @ 500 mls/hr Q1H ONCE IV ; Start 04/22/19 at 14:00; Stop 04/22/19 at 14:59 Sodium Chloride 1,000 ml @ 100 mls/hr Q10H IV ; Start 04/22/19 at 14:00 Clindamycin HCl/ Dextrose 50 ml @ 50 mls/hr Q8 IVPB ; Start 7/8/19 at 14:00 Daptomycin 500 mg/ Sodium Chloride 100 ml @ 200 mls/hr Q24H IVPB ; Start 04/22/19 at 15:00 Meropenem/Sodium Chloride 50 ml @ 100 mls/hr Q8 IVPB ; Start 04/22/19 at 14:00; Status UNV Meds reviewed: Yes Allergies Coded Allergies: vancomycin (Unverified Allergy, Unknown, 04/21/19) Allergies Reviewed: Yes Labs/Studies Labs Reviewed: Reviewed by anesthesiologist Result Diagram: 04/22/19 0600 04/22/19 0600 Laboratory Tests 04/22/19 06:00 test: N/A Pre-procedure Exam Last vitals Vital Signs Date Temp Pulse Resp B/P (MAP) Pulse Ox O2 O2 Flow FiO2 Time Delivery Rate 04/22/19 98.6 84 16 146/83 99 Room Air 13:29 (104) Airway: Adequate mouth opening, Adequate thyromental dist Mallampati: Mallampati III Teeth: Normal Lung: Normal Heart: Normal ASA Physical Status ASA physical status: 3 Emergency: E Pre-operative Attestations Prior to commencing anesthesia and surgery, the patient was re-evaluated, there was verification of: *The patient's identity *The results of appropriate recent lab work and preoperative vital signs *The above evaluation not changing prior to induction *Anesthetic plan, risk benefits, alternative and complications discussed with patient/family; questions answered; patient/family understands, accepts and wishes to proceed. PANTERA ACEVES DO Apr 22, 2019 14:08
[2019-04-22] MEDS ORDERED: KETAMINE (50 MG/ML) 10 ML VIAL ONE (14:20)
[2019-04-22] MEDS ORDERED: MIDAZOLAM 1 MG/ML 2 ML INJ ONE (14:20)
[2019-04-22] MEDS ORDERED: FENTAnyl 50 MCG/ML VIAL ONE (14:22)
[2019-04-22] MEDS ORDERED: CEFAZOLIN 1 GM INJ ONE (14:23)
[2019-04-22] MEDS ORDERED: HYDROmorphONE 1 MG/5 ML IV SYRINGE IV PRN ×2 (14:30)
[2019-04-22] MEDS ORDERED: ROPIVACAINE 0.5 % 30 ML VIAL ONE (14:37)
--- NOTE | 2019-04-22 15:26 | SIPON ---
Date/Time of Note Date/Time of Note DATE: 04/22/19 TIME: 15:26 Operative Report Preoperative Diagnosis Left foot gas gangrene Left lower extremity cellulitis Left foot diabetic foot ulcer DM2 with peripheral neuropathy left foot osteomyelitis Postoperative Diagnosis Left foot gas gangrene Left lower extremity cellulitis Left foot diabetic foot ulcer DM2 with peripheral neuropathy left foot osteomyelitis Operation/Procedure Performed Left foot incision and drainage left foot excisional debridement Surgeon see signature line public aid eligibility assistant none Anesthesia: spinal Estimated blood loss: 10 - 50 ml's Transfusion Required none Specimen left foot pre and post lavage cultures Left foot bone pathology Grafts/Implants none Complications none VINICIUS ARRIETA DPM Apr 22, 2019 15:26
--- NOTE | 2019-04-22 15:28 | OPR ---
Date/Time of Note Date/Time of Note DATE: 04/22/19 TIME: 15:28 Operative Report Preoperative Diagnosis Left foot gas gangrene Left lower extremity cellulitis Left foot diabetic foot ulcer DM2 with peripheral neuropathy left foot osteomyelitis Postoperative Diagnosis Left foot gas gangrene Left lower extremity cellulitis Left foot diabetic foot ulcer DM2 with peripheral neuropathy left foot osteomyelitis Operation/Procedure Performed Left foot incision and drainage left foot excisional debridement Surgeon see signature line Triage Assistant none Anesthesia Type: epidural Estimated Blood Loss: 10 - 50 ml's Transfusion none Specimen left foot pre and post lavage cultures Left foot bone pathology Grafts/Implants none Complications none Indications 43 y/o diabetic M patient presented to the hospital with a left foot gas gangrene infection. Pre operative ankle and tib fib x-rays were obtained and there was no ascending soft tissue gas/emphysema. Discussed emergent surgical intervention with the patient and was amenable to the procedure. Discussed with patient that there will be staged interventions to control the infection and attempt to obtain wound closure. All of the patient's questions and concerns w ere addressed. No promises or guarantees were given. Procedure Description Patient was brought into the OR and placed in the supine position. A pre operative spinal block was provided by the anesthesia team. The left lower extremity was scrubbed, prepped, and draped in the usual aseptic manner. A formal time out was conducted. Attention was directed to the left foot, there was a plantar left hallux fibronecrotic ulceration measured 2 x 1 x 0.4cm. There was foul odor and a tunneling wound to the proximal aspect of the plantar medial hallux 2-3cm. The ulcer probed to bone. The ulcer also communicated to the dorsal lateral aspect of the hallux which measured 3 x 3 x 1.5cm, there was also tunneling towards the plantar 1st webspace and laterally towards the dorsal aspect of the left foot 3cm also in the plantar aspect towards the 2nd metatarsal. An incision and drainage was performed to the left foot ulceration site extending towards the dorsal and plantar 1st webspace. Using blunt dissection the tunneling wound sites were dilated. total of 10mLs of purulent drainage was expressed from the wound site. There was also muddy-brown discharge appreciated with the purulent drainage. Excisional debridement of skin/subQ/muscle/tendon was performed using pickup/scissors and rongeurs. Post debridement wound measurement was 6 x 3 x 1.5cm where hallux and 2nd metatarsal bone could be probed. Bone biopsy was obtained of the left foot and sent for pathology studies. 18cm2 of area was debrided. Necrotic and fibrotic tissue was removed along with further purulent drainage. Using antibiotic infused pulse lavage copious irrigation was used at the infected ulceration site of the left foot. Polymixin and bacitracin antibiotic powder was packed into the left foot ulceration site. 1/4in iodoform packing was also applied to the left foot ulceration sit with betadine soaked 4x4 gauze, kerlix and rosetta wrap. Pre and post lavage wound cultures were obtained. Anesthesia performed an ankle block under sterile technique. Patient was transferred to PACU with vital signs stable and neurovascular status intact. VINICIUS ARRIETA DPM Apr 22, 2019 15:28
--- NOTE | 2019-04-22 15:29 | PAC ---
Date/Time of Note Date/Time of Note DATE: 04/22/19 TIME: 15:29 Post-Anesthesia Notes Post-Anesthesia Note Last documented vital signs Vital Signs Date Temp Pulse Resp B/P (MAP) Pulse Ox O2 O2 Flow FiO2 Time Delivery Rate 04/22/19 98 80 18 145/60 99 Room Air 1530 Activity: WNL Respiratory function: WNL Cardiovascular function: WNL Mental status: Baseline Pain reasonably controlled: Yes Hydration appropriate: Yes Nausea/Vomiting absent: Yes PANTERA ACEVES DO Apr 22, 2019 15:29
--- NOTE | 2019-04-22 16:25 | CONS ---
DATE OF ADMISSION: 04/21/2019 DATE OF CONSULTATION: 04/22/2019 TYPE OF CONSULTATION: Infectious Disease. REASON FOR CONSULTATION: Antibiotic management. HISTORY OF PRESENT ILLNESS: Caio Taveras is a 43-year-old male with history of diabetic ulcer to th e left foot, who is [facility]. He comes in with a left foot wound which is infected. It is red and swollen over the past week with associated fevers. He also compla ins of pain, 5/10. He has a history of osteomyelitis of the right foot which was treated. Dr. Baltazar peace was treating the left foot. He has history of right ankle surgery, right big toe I and D. He h as history of hypertension, anxiety and depression. FAMILY HISTORY: Noncontributory. SOCIAL HISTORY: He is sometimes drinks alcohol. He is a former smoker. He uses marijuana. ALLERGIES: VANCOMYCIN. MEDICATIONS: Per chart. REVIEW OF SYSTEMS: Noncontributory. His white count was 15,000, H and H of 10.8 and 32.7, platelet count 332,000. BUN and creatinine 21/ 1.61, glucose of 238,000. He has 78% neutrophils. The patient was seen in consultation by Dr. Celestin today. The patient was kept n.p.o. He is supp osed to go for emergency surgery. Continue IV antibiotics. There is soft tissue gas on the left arvind t x-rays. Wound culture was obtained by Dr. Celestin and patient was placed on linezolid because HE IS ALLERGIC TO PENICILLIN. He had previous wound debridements. His white count today is 12.1. His urinalysis is negative. Foot x-ray shows moderate cellulitis with subjacent emphysema in the first digit. No definite erosive changes seen in the first digit on the right foot. There is clinical con cern for osteomyelitis. MRI is recommended. Chest x-ray showed no evidence of acute cardiopulmonary disease. Tibia and fibula x-ray was negative, no acute abnormality. Ankle x-rays was also noncontr ibutory. PHYSICAL EXAMINATION: GENERAL: The patient is asked alert, responsive, in no acute distress. VITAL SIGNS: Stable. T-max 100.7. SKIN: Without generalized rash. HEENT: Within normal limits. NECK: Supple. LYMPH NODES: None palpable. CHEST: Decreased breath sounds at the bases. HEART: Without murmur or gallop. ABDOMEN: Soft, nontender, without organosplenomegaly or masses. EXTREMITIES: Without cyanosis or clubbing. He has the left hallux ulceration with erythema. The ri ght hallux with erythema, swelling and macerated skin. RECTAL AND GENITAL: Deferred. NEUROLOGIC: No focal neurological abnormalities. IMPRESSION: The patient was started on meropenem, daptomycin and clindamycin. An ID consult was req uested. The patient is going for surgery. I will dictate my findings to the hospitalist and to Dr. Celestin. Dictated By: ADELINA ROBBINS MD, JD/NTS Conf#: [id number] DID#: [id number] CC: TANIA SESAY MD;*End*
[2019-04-22] MEDS ORDERED: hydrALAzine 20 MG INJ IV PRN (16:30)
[2019-04-22] MEDS ORDERED: hydrALAzine 20 MG INJ IV ONE (16:30)
[2019-04-22] MEDS: MEROPENEM 1 GM/50ML(PMX) 50 ML IVPB SCH ×2 (18:05→22:29)
[2019-04-22] MEDS: DAPTOMYCIN 500 MG in SOD CHLORIDE 0.9% 100 ML IVPB SCH (20:34)
[2019-04-22] MEDS ORDERED: ACETAMINOPHEN 325 MG TAB ONE ×2 (20:42)
[2019-04-22] MEDS: ACETAMINOPHEN 325 MG TAB PO PRN (21:04)
[2019-04-22] MEDS: CLINDAMYCIN 600 MG/D5W (PMX) 50 ML IVPB SCH ×2 (21:29→23:17)
[2019-04-22] MEDS ORDERED: morphine 2 MG INJ IV PRN (21:30)
[2019-04-22] MEDS ORDERED: traZODone 50 MG TAB ONE (21:43)
[2019-04-22] MEDS ORDERED: ONDANSETRON 4 MG INJ ONE (21:43)
[2019-04-22] MEDS: traZODone 50 MG TAB PO SCH (21:45)
[2019-04-22] MEDS ORDERED: ONDANSETRON 4 MG INJ IV PRN (22:00)
[2019-04-22] MEDS ORDERED: IBUPROFEN 400 MG TAB PO PRN (23:30)
[2019-04-23 02:00] VITALS: BP 128/71; PULSE 78; RESP 19
[2019-04-23] MEDS: ACCU-CHEK XX SCH (02:08)
[2019-04-23] MEDS: MEROPENEM 1 GM/50ML(PMX) 50 ML IVPB SCH ×3 (05:02→21:48)
[2019-04-23] MEDS: CLINDAMYCIN 600 MG/D5W (PMX) 50 ML IVPB SCH ×2 (05:02→14:26)
[2019-04-23 08:03] VITALS: BP 117/63; PULSE 71; RESP 18
[2019-04-23] MEDS: CHLORTHALIDONE 25 MG TAB PO SCH (08:05)
[2019-04-23] MEDS: AMLODIPINE 5 MG TAB PO SCH (08:05)
[2019-04-23] MEDS: BUSPIRONE 10 MG TAB PO SCH (08:06)
[2019-04-23] MEDS: OXCARBAZEPINE 300 MG TAB PO SCH ×2 (08:06→20:40)
[2019-04-23] MEDS: GABAPENTIN 100 MG CAP PO SCH ×3 (08:06→20:40)
[2019-04-23] MEDS: INSULIN GLARGINE [LANTus] (100 UNITS/ML) SYG SC SCH (08:07)
[2019-04-23] MEDS: INSULIN ASPART [NOVOLOG] 3 ML PEN SC SCH ×7 (08:08→21:30)
[2019-04-23] MEDS: COLLAGENASE 5 GM (UD JAR) TOP SCH (08:09)
--- NOTE | 2019-04-23 09:10 | PN ---
Date/Time of Note Date/Time of Note DATE: 04/23/19 TIME: 09:02 Assessment/Plan VTE Prophylaxis Risk score (from Ns)>0 risk: 4 SCD applied (from Ns): No SCD contraindicated: other Pharmacological prophylaxis: heparin Lines/Catheters IV Catheter Type (from [facility]): Peripheral IV Assessment/Plan Hospital Course SUBJECTIVE:Had fevers last night. currently afebrile.doing well. no pain on left foot. OBJECTIVE: Vital signs-see below PHYSICAL EXAM: Constitutional: Adequately built,not in acute distress. HEENT: Head atraumatic and normocephalic. Eyes: Extraocular muscles intact. Anicteric sclerae. Pupils equal bilaterally, reactive to light. NECK: Supple without lymph node. CHEST: Clear and good breath sounds equally. No wheezing. No rhonchi. HEART: S1, S2. Regular rate and rhythm. ABDOMEN: Soft/non tender with no rebound tenderness. Bowel sounds were present. EXTREMITIES:L foot bandaged. NEUROLOGIC: Alert and oriented x3. No focal deficit. No sensory deficit. PSYCHOSOCIAL: No signs of depression. INTEGUMENTARY: No open wounds. ASSESSMENT AND PLAN:43 yo M w/dm2,rt foot om, admitted with left big toe ulceration and foot cellulitis.. Sepsis Source:left foot ulceration w/gas gangrene -clinically improving on current antimicrobials -f/u cultures Left foot gas gangrene/cellulitis -Appreciate excellent care of . s/p emergent I&D w/excisional debridement in OR 04/23/19 -cont. broad spectrum abx (merrem+dapto+clinda) -Follow-up cultures,MRI -Wound care LACEY on CKD -Renal fxn back to normal after fluid challenge. -resume acei as renal fxn permits -monitor DMII -Basal/bolus insulin-adjust for optimal control to allow wound healing -Carbohydrate controlled diet. Essential hypertension -resume acei -cont. hydralazine/amlodipine -dc thiazide dvt ppx:start heparin if ok w/surgical standpoint Dispo:cont.current mgmt. F/u culture. await for clinical improvement. patient was seen in collaboration with Result Diagram: 04/23/19 0535 04/23/19 0535 Results 24hrs Laboratory Tests Test 04/22/19 12:46 04/22/19 17:29 04/22/19 20:57 04/23/19 02:08 Bedside Glucose 189 206 201 156 Test 04/23/19 05:35 04/23/19 07:56 White Blood Count 12.9 H Red Blood Count 3.93 L Hemoglobin 10.0 L Hematocrit 30.5 L Mean Corpuscular Volume 77.6 L Mean Corpuscular 25.4 L Hemoglobin Mean Corpuscular 32.8 Hemoglobin Concent Red Cell Distribution 12.8 Width Platelet Count 348 Mean Platelet Volume 10.8 H Immature Granulocytes % 0.800 H Neutrophils % 77.0 Lymphocytes % 11.8 L Monocytes % 8.5 Eosinophils % 1.6 Basophils % 0.3 Nucleated Red Blood 0.0 Cells % Immature Granulocytes # 0.100 H Neutrophils # 9.9 H Lymphocytes # 1.5 Monocytes # 1.1 H Eosinophils # 0.2 Basophils # 0.0 Nucleated Red Blood 0.0 Cells # Sodium Level 137 Potassium Level 4.1 Chloride Level 104 Carbon Dioxide Level 23 Anion Gap 10 Blood Urea Nitrogen 14 Creatinine 1.12 Est Glomerular Filtrat > 60 Rate mL/min Glucose Level 165 Calcium Level 8.7 Magnesium Level 1.7 Creatine Kinase 83 Bedside Glucose 171 Exam/Review of Systems Exam Vitals Vital Signs Date Temp Pulse Resp B/P (MAP) Pulse Ox O2 O2 Flow FiO2 Time Delivery Rate 04/23/19 98.4 71 18 117/63 98 Room Air 08:03 (81) Intake and Output 04/22/19 04/22/19 04/23/19 1515:00 23:00 07:00 IntakeIntake Total 1700 ml 1650 ml 500 ml OutputOutput Total 500 ml 50 ml 600 ml BalanceBalance 1200 ml 1600 ml -100 ml Results Results 24hrs Laboratory Tests Test 04/22/19 12:46 04/22/19 17:29 04/22/19 20:57 04/23/19 02:08 Bedside Glucose 189 206 201 156 Test 04/23/19 05:35 04/23/19 07:56 White Blood Count 12.9 H Red Blood Count 3.93 L Hemoglobin 10.0 L Hematocrit 30.5 L Mean Corpuscular Volume 77.6 L Mean Corpuscular 25.4 L Hemoglobin Mean Corpuscular 32.8 Hemoglobin Concent Red Cell Distribution 12.8 Width Platelet Count 348 Mean Platelet Volume 10.8 H Immature Granulocytes % 0.800 H Neutrophils % 77.0 Lymphocytes % 11.8 L Monocytes % 8.5 Eosinophils % 1.6 Basophils % 0.3 Nucleated Red Blood 0.0 Cells % Immature Granulocytes # 0.100 H Neutrophils # 9.9 H Lymphocytes # 1.5 Monocytes # 1.1 H Eosinophils # 0.2 Basophils # 0.0 Nucleated Red Blood 0.0 Cells # Sodium Level 137 Potassium Level 4.1 Chloride Level 104 Carbon Dioxide Level 23 Anion Gap 10 Blood Urea Nitrogen 14 Creatinine 1.12 Est Glomerular Filtrat > 60 Rate mL/min Glucose Level 165 Calcium Level 8.7 Magnesium Level 1.7 Creatine Kinase 83 Bedside Glucose 171 Medications Medication Current Medications Diagnostic Test (Pha) (Accu-Chek) 1 ea 02 XX Last administered on 04/23/19at 02:08; Admin Dose 1 EA; Start 04/22/19 at 02:00 Miscellaneous Information 1 ea NOTE XX ; Start 04/22/19 at 01:30 Glucose (Glutose) 15 gm Q15M PRN PO DECREASED GLUCOSE; Start 04/22/19 at 01:30 Glucose (Glutose) 22.5 gm Q15M PRN PO DECREASED GLUCOSE; Start 04/22/19 at 01:30 Dextrose (D50w Syringe) 25 ml Q15M PRN IV DECREASED GLUCOSE; Start 04/22/19 at 01:30 Dextrose (D50w Syringe) 50 ml Q15M PRN IV DECREASED GLUCOSE; Start 04/22/19 at 01:30 Glucagon (Glucagen) 1 mg Q15M PRN IM DECREASED GLUCOSE; Start 04/22/19 at 01:30 Glucose (Glutose) 15 gm Q15M PRN BUCCAL DECREASED GLUCOSE; Start 04/22/19 at 01:30 Buspirone HCl (Buspar) 10 mg DAILY PO Last administered on 04/23/19at 08:06; Admin Dose 10 MG; Start 04/22/19 at 09:00 Chlorthalidone (Hygroton) 25 mg DAILY PO Last administered on 04/23/19at 08:05; Admin Dose 25 MG; Start 04/22/19 at 09:00 Gabapentin (Neurontin) 100 mg TID PO Last administered on 04/23/19at 08:06; Admin Dose 100 MG; Start 04/22/19 at 09:00 Insulin Aspart (Novolog Insulin Pen) 7 unit WITH MEALS SC Last administered on 04/23/19 08:08; Admin Dose 7 UNIT; Start 04/22/19 at 07:35 Insulin Glargine (Lantus) 28 units WITH BREAKFAST SC Last administered on 04/23/19 08:07; Admin Dose 28 UNITS; Start 04/22/19 at 08:00 Lisinopril (Zestril) 20 mg DAILY PO Last administered on 04/22/19 08:59; Admin Dose 20 MG; Start 04/22/19 at 09:00; Status Hold Oxcarbazepine (Trileptal) 300 mg BID PO Last administered on 04/23/19 08:06; Admin Dose 300 MG; Start 04/22/19 at 09:00 Miscellaneous Information (Pending Santyl Order For Wound Care) This patient mario... PRN PRN XX WOUND CARE; Start 04/22/19 at 02:00 Collagenase (Santyl) 1 applic DAILY TOP Last administered on 04/22/19 08:59; Admin Dose 1 APPLIC; Start 04/22/19 at 09:00 Hydralazine HCl (Apresoline) 25 mg Q8 PO Last administered on 04/23/19 05:02; Admin Dose 25 MG; Start 04/22/19 at 14:00 Amlodipine Besylate (Norvasc) 5 mg DAILY PO Last administered on 04/23/19 08:05; Admin Dose 5 MG; Start 04/22/19 at 13:00 Sodium Chloride 1,000 ml @ 100 mls/hr Q10H IV Last administered on 04/22/19 23:18; Admin Dose 100 MLS/HR; Start 04/22/19 at 14:00 Clindamycin HCl/ Dextrose 50 ml @ 50 mls/hr Q8 IVPB Last administered on 04/23/19 05:02; Admin Dose 50 MLS/HR; Start 04/22/19 at 14:00 Daptomycin 500 mg/ Sodium Chloride 100 ml @ 200 mls/hr Q24H IVPB Last a dministered on 04/22/19 20:34; Admin Dose 200 MLS/HR; Start 04/22/19 at 15:00 Meropenem/Sodium Chloride 50 ml @ 100 mls/hr Q8 IVPB Last administered on 7/9/19at 05:02; Admin Dose 100 MLS/HR; Start 04/22/19 at 14:00 Hydralazine HCl (Apresoline) 10 mg Q4H PRN IV SBP >170; Start 04/22/19 at 16:30 Insulin Aspart (Novolog Insulin Pen) NOVOLOG *MILD* ALGORI... AC MEALS AND BEDTIME SC Last administered on 04/23/19 08:08; Admin Dose 1 UNIT; Start 04/22/19 at 17:35 Acetaminophen (Tylenol Tab) 650 mg Q6H PRN PO MILD PAIN(1-3)OR ELEVATED TEMP Last administered on 04/22/19 21:04; Admin Dose 650 MG; Start 04/22/19 at 21:00 Trazodone HCl (Desyrel) 25 mg HS PO Last administered on 04/22/19 21:45; Admin Dose 25 MG; Start 04/23/19 at 21:00 Morphine Sulfate (morphine) 2 mg Q4H PRN IV SEVERE PAIN LEVEL 7-10 Last administered on 04/22/19 21:45; Admin Dose 2 MG; Start 04/22/19 at 21:30 Ondansetron HCl (Zofran Inj) 4 mg Q4H PRN IV NAUSEA AND/OR VOMITING Last administered on 04/22/19 21:45; Admin Dose 4 MG; Start 04/22/19 at 22:00 Ibuprofen (Motrin) 400 mg Q6H PRN PO MILD PAIN(1-3) OR TEMP>38C Last admin istered on 04/22/19 23:17; Admin Dose 400 MG; Start 04/22/19 at 23:30; Stop 04/24/19 at 23:30 SUZIE CESPEDES NP Apr 23, 2019 09:10
[2019-04-23] MEDS: LISINOPRIL 10 MG TAB PO SCH (09:26)
[2019-04-23] MEDS ORDERED: LIDOCAINE 1% (MPF) 5 ML VIAL SC ONE (09:30)
[2019-04-23] MEDS: SOD CHLORIDE 0.9% 1,000 ML IV SCH ×2 (09:43→14:26)
[2019-04-23] MEDS ORDERED: MAGNESIUM SULFATE 1 GM/D5W 100 ML IVPB ONE (10:00)
[2019-04-23 14:00] VITALS: BP 121/75; PULSE 83; RESP 18
--- NOTE | 2019-04-23 17:04 | CONS ---
Assessment/Plan Assessment/Plan Hospital Course (Demo Recall) No acute events patient is awake looks comfortable, had been spiking fevers with a T-max of 102 last night currently afebrile WBC 12.9 platelets 348 neutrophils 77, ESR 105 BUN 14 creatinine 1.12 procalcitonin 0.41 Microbiology: All cultures since admission negative Chest x-ray on admission revealed no evidence for acute cardiopulmonary process Antimicrobials: Daptomycin, clindamycin meropenem Allergy: Vancomycin Physical examination: Obese well-developed middle-aged man in no distress head atraumatic normocephalic neck is supple chest rise symmetrical breath sounds diminished to bases heart S1-S2 abdomen soft bowel sounds present extremities with left foot dressing Assessment: 1. Sepsis, present on admission 2. Left foot osteomyelitis/gas gangrene status post I&D 3. Diabetes with peripheral neuropathy 4. Obesity 5. Acute kidney insufficiency Plan: Patient is stable, pending cultures, DC clindamycin, continue daptomycin and meropenem, follow podiatry recommendations Consultation Date/Type/Reason Admit Date/Time Apr 21, 2019 at 22:15 Initial Consult Date Type of Consult id Date/Time of Note DATE: 04/23/19 TIME: 17:03 Exam/Review of Systems Exam Vitals Vital Signs Date Temp Pulse Resp B/P (MAP) Pulse Ox O2 O2 Flow FiO2 Time Delivery Rate 04/23/19 98.0 83 18 121/75 99 Room Air 14:00 (90) Intake and Output 04/22/19 04/22/19 04/23/19 1414:59 22:59 06:59 IntakeIntake Total 1700 ml 1600 ml 550 ml OutputOutput Total 500 ml 50 ml 600 ml BalanceBalance 1200 ml 1550 ml -50 ml Results Result Diagram: 04/23/19 0535 04/23/19 0535 Results 24hrs Laboratory Tests Test 04/22/19 17:29 04/22/19 20:57 04/23/19 02:08 04/23/19 05:35 Bedside Glucose 206 201 156 White Blood Count 12.9 H Red Blood Count 3.93 L Hemoglobin 10.0 L Hematocrit 30.5 L Mean Corpuscular Volume 77.6 L Mean Corpuscular 25.4 L Hemoglobin Mean Corpuscular 32.8 Hemoglobin Concent Red Cell Distribution 12.8 Width Platelet Count 348 Mean Platelet Volume 10.8 H Immature Granulocytes % 0.800 H Neutrophils % 77.0 Lymphocytes % 11.8 L Monocytes % 8.5 Eosinophils % 1.6 Basophils % 0.3 Nucleated Red Blood 0.0 Cells % Immature Granulocytes # 0.100 H Neutrophils # 9.9 H Lymphocytes # 1.5 Monocytes # 1.1 H Eosinophils # 0.2 Basophils # 0.0 Nucleated Red Blood 0.0 Cells # Sodium Level 137 Potassium Level 4.1 Chloride Level 104 Carbon Dioxide Level 23 Anion Gap 10 Blood Urea Nitrogen 14 Creatinine 1.12 Est Glomerular Filtrat > 60 Rate mL/min Glucose Level 165 Calcium Level 8.7 Magnesium Level 1.7 Creatine Kinase 83 Test 04/23/19 07:56 04/23/19 10:14 04/23/19 12:12 Bedside Glucose 171 181 Erythrocyte 105 H Sedimentation Rate C-Reactive Protein 22.2 H Procalcitonin 0.41 H Medications Medication Current Medications Diagnostic Test (Pha) (Accu-Chek) 1 ea 02 XX Last administered on 04/23/19at 02:08; Admin Dose 1 EA; Start 04/22/19 at 02:00 Miscellaneous Information 1 ea NOTE XX ; Start 04/22/19 at 01:30 Glucose (Glutose) 15 gm Q15M PRN PO DECREASED GLUCOSE; Start 04/22/19 at 01:30 Glucose (Glutose) 22.5 gm Q15M PRN PO DECREASED GLUCOSE; Start 04/22/19 at 01:30 Dextrose (D50w Syringe) 25 ml Q15M PRN IV DECREASED GLUCOSE; Start 04/22/19 at 01:30 Dextrose (D50w Syringe) 50 ml Q15M PRN IV DECREASED GLUCOSE; Start 04/22/19 at 01:30 Glucagon (Glucagen) 1 mg Q15M PRN IM DECREASED GLUCOSE; Start 04/22/19 at 01:30 Glucose (Glutose) 15 gm Q15M PRN BUCCAL DECREASED GLUCOSE; Start 04/22/19 at 01:30 Buspirone HCl (Buspar) 10 mg DAILY PO Last administered on 04/23/19at 08:06; Admin Dose 10 MG; Start 04/22/19 at 09:00 Gabapentin (Neurontin) 100 mg TID PO Last administered on 04/23/19at 12:12; Admin Dose 100 MG; Start 04/22/19 at 09:00 Lisinopril (Zestril) 20 mg DAILY PO Last administered on 04/22/19 08:59; Admin Dose 20 MG; Start 04/22/19 at 09:00; Status Hold Oxcarbazepine (Trileptal) 300 mg BID PO Last administered on 04/23/19 08:06; Admin Dose 300 MG; Start 04/22/19 at 09:00 Miscellaneous Information (Pending Santyl Order For Wound Care) This patient mario... PRN PRN XX WOUND CARE; Start 04/22/19 at 02:00 Hydralazine HCl (Apresoline) 25 mg Q8 PO Last administered on 04/23/19 14:39; Admin Dose 25 MG; Start 04/22/19 at 14:00 Amlodipine Besylate (Norvasc) 5 mg DAILY PO Last administered on 04/23/19 08:05; Admin Dose 5 MG; Start 04/22/19 at 13:00 Sodium Chloride 1,000 ml @ 100 mls/hr Q10H IV Last administered on 04/23/19 14:26; Admin Dose 100 MLS/HR; Start 04/22/19 at 14:00 Clindamycin HCl/ Dextrose 50 ml @ 50 mls/hr Q8 IVPB Last administered on 04/23/19 14:26; Admin Dose 50 MLS/HR; Start 04/22/19 at 14:00 Daptomycin 500 mg/ Sodium Chloride 100 ml @ 200 mls/hr Q24H IVPB Last administered on 04/22/19 20:34; Admin Dose 200 MLS/HR; Start 04/22/19 at 15:00 Meropenem/Sodium Chloride 50 ml @ 100 mls/hr Q8 IVPB Last administered on 04/23/19 13:39; Admin Dose 100 MLS/HR; Start 04/22/19 at 14:00 Insulin Aspart (Novolog Insulin Pen) NOVOLOG *MILD* ALGORI... AC MEALS AND BEDTIME SC Last administered on 04/23/19 12:14; Admin Dose 2 UNIT; Start 04/22/19 at 17:35 Acetaminophen (Tylenol Tab) 650 mg Q6H PRN PO MILD PAIN(1-3)OR ELEVATED TEMP Last administered on 04/22/19 21:04; Admin Dose 650 MG; Start 04/22/19 at 21:00 Trazodone HCl (Desyrel) 25 mg HS PO Last administered on 04/22/19 21:45; Admin Dose 25 MG; Start 04/23/19 at 21:00 Morphine Sulfate (morphine) 2 mg Q4H PRN IV SEVERE PAIN LEVEL 7-10 Last adminis tered on 04/22/19 21:45; Admin Dose 2 MG; Start 04/22/19 at 21:30 Ondansetron HCl (Zofran Inj) 4 mg Q4H PRN IV NAUSEA AND/OR VOMITING Last administered on 04/22/19 21:45; Admin Dose 4 MG; Start 04/22/19 at 22:00 Ibuprofen (Motrin) 400 mg Q6H PRN PO MILD PAIN(1-3) OR TEMP>38C Last administered on 04/22/19 23:17; Admin Dose 400 MG; Start 04/22/19 at 23:30; Stop 04/24/19 at 23:30 Insulin Aspart (Novolog Insulin Pen) 10 unit WITH MEALS SC Last administered on 04/23/19at 12:13; Admin Dose 10 UNIT; Start 04/23/19 at 11:30 Insulin Glargine (Lantus) 30 units WITH BREAKFAST SC ; Start 04/24/19 at 08:00 Lisinopril (Zestril) 10 mg DAILY PO Last administered on 04/23/19at 09:26; Admin Dose 10 MG; Start 04/23/19 at 09:30 Heparin Sodium (Porcine) (Heparin (5000 Units/1ml)) 5,000 unit BID SC ; Start 04/23/19 at 21:00 Sodium Hypochlorite (Dakins Diluted (1/40)) 1 applic DAILY TP ; Start 04/24/19 at 09:00 SUREKHA LINDA NP Apr 23, 2019 17:03
[2019-04-23] MEDS: DAPTOMYCIN 500 MG in SOD CHLORIDE 0.9% 100 ML IVPB SCH (17:16)
--- NOTE | 2019-04-23 18:01 | CONS ---
Assessment/Plan Assessment/Plan Assessment/Plan (Daily) Left foot gas gangrene Left lower extremity cellulitis Left foot diabetic foot ulcer DM2 with peripheral neuropathy Hx of right foot osteomyelitis Depression HTN CKD Plan Patient tolerated surgical debridement well 04/22/19. Recommend daily irrigation of dakins, application of 1/4in iodoform packing and betadine 4x4 gauze with kerlix and rosetta wrap. Appreciate ID recommendations for antibiotic therapy. Patient will likely need ocean transportation intermediary IV PICC line abx. Concern for osteomyelitis of left foot. Patient would likely benefit from HBO therapy in the outpatient setting. Patient has exhibited signs of distress and depression. However refuses to be seen by psychiatry. Non weight bearing to left lower extremity. PT/OT evaluation appreciated. Non invasive arterial studies ordered. Consultation Date/Type/Reason Admit Date/Time Apr 21, 2019 at 22:15 Initial Consult Date Date/Time of Note DATE: 04/23/19 TIME: 18:01 24 HR Interval Summary Free Text/Dictation No acute events overnight Exam/Review of Systems Exam Vitals Vital Signs Date Temp Pulse Resp B/P (MAP) Pulse Ox O2 O2 Flow FiO2 Time Delivery Rate 04/23/19 98.0 83 18 121/75 99 Room Air 14:00 (90) Intake and Output 04/22/19 04/22/19 04/23/19 1515:00 23:00 07:00 IntakeIntake Total 1700 ml 1650 ml 500 ml OutputOutput Total 500 ml 50 ml 600 ml BalanceBalance 1200 ml 1600 ml -100 ml Exam 6 x 3 x 1.5cm where hallux and 2nd metatarsal bone could be probed. Fibrogranular wound bed. No active purulent drainage appreciated. Wound communicates with plantar hallux ulceration which measures 2 x 1 x 1.8cm There is pain on palpation to the plantar aspect of the wound Residual erythema appreciated to surrounding ulceration site Absent protective sensations Pedal hairs present No sign of gangrene appreciated at this time to digits or surgical site CFT less than 3 seconds Results Result Diagram: 04/23/19 0535 04/23/19 0535 Results 24hrs Laboratory Tests Test 04/22/19 20:57 04/23/19 02:08 04/23/19 05:35 04/23/19 07:56 Bedside Glucose 201 156 171 White Blood Count 12.9 H Red Blood Count 3.93 L Hemoglobin 10.0 L Hematocrit 30.5 L Mean Corpuscular Volume 77.6 L Mean Corpuscular 25.4 L Hemoglobin Mean Corpuscular 32.8 Hemoglobin Concent Red Cell Distribution 12.8 Width Platelet Count 348 Mean Platelet Volume 10.8 H Immature Granulocytes % 0.800 H Neutrophils % 77.0 Lymphocytes % 11.8 L Monocytes % 8.5 Eosinophils % 1.6 Basophils % 0.3 Nucleated Red Blood 0.0 Cells % Immature Granulocytes # 0.100 H Neutrophils # 9.9 H Lymphocytes # 1.5 Monocytes # 1.1 H Eosinophils # 0.2 Basophils # 0.0 Nucleated Red Blood 0.0 Cells # Sodium Level 137 Potassium Level 4.1 Chloride Level 104 Carbon Dioxide Level 23 Anion Gap 10 Blood Urea Nitrogen 14 Creatinine 1.12 Est Glomerular Filtrat > 60 Rate mL/min Glucose Level 165 Calcium Level 8.7 Magnesium Level 1.7 Creatine Kinase 83 Test 04/23/19 10:14 04/23/19 12:12 04/23/19 17:16 Erythrocyte 105 H Sedimentation Rate C-Reactive Protein 22.2 H Procalcitonin 0.41 H Bedside Glucose 181 162 Medications Medication Current Medications Diagnostic Test (Pha) (Accu-Chek) 1 ea 02 XX Last administered on 04/23/19at 02:08; Admin Dose 1 EA; Start 04/22/19 at 02:00 Miscellaneous Information 1 ea NOTE XX ; Start 04/22/19 at 01:30 Glucose (Glutose) 15 gm Q15M PRN PO DECREASED GLUCOSE; Start 04/22/19 at 01:30 Glucose (Glutose) 22.5 gm Q15M PRN PO DECREASED GLUCOSE; Start 04/22/19 at 01:30 Dextrose (D50w Syringe) 25 ml Q15M PRN IV DECREASED GLUCOSE; Start 04/22/19 at 01:30 Dextrose (D50w Syringe) 50 ml Q15M PRN IV DECREASED GLUCOSE; Start 04/22/19 at 01:30 Glucagon (Glucagen) 1 mg Q15M PRN IM DECREASED GLUCOSE; Start 04/22/19 at 01:30 Glucose (Glutose) 15 gm Q15M PRN BUCCAL DECREASED GLUCOSE; Start 04/22/19 at 01:30 Buspirone HCl (Buspar) 10 mg DAILY PO Last administered on 04/23/19at 08:06; Admin Dose 10 MG; Start 04/22/19 at 09:00 Gabapentin (Neurontin) 100 mg TID PO Last administered on 04/23/19 12:12; Admin Dose 100 MG; Start 04/22/19 at 09:00 Lisinopril (Zestril) 20 mg DAILY PO Last administered on 04/22/19 08:59; Admin Dose 20 MG; Start 04/22/19 at 09:00; Status Hold Oxcarbazepine (Trileptal) 300 mg BID PO Last administered on 04/23/19 08:06; Admin Dose 300 MG; Start 04/22/19 at 09:00 Miscellaneous Information (Pending Santyl Order For Wound Care) This patient mario... PRN PRN XX WOUND CARE; Start 04/22/19 at 02:00 Hydralazine HCl (Apresoline) 25 mg Q8 PO Last administered on 04/23/19 14:39; Admin Dose 25 MG; Start 04/22/19 at 14:00 Amlodipine Besylate (Norvasc) 5 mg DAILY PO Last administered on 04/23/19 08:05; Admin Dose 5 MG; Start 04/22/19 at 13:00 Sodium Chloride 1,000 ml @ 100 mls/hr Q10H IV Last administered on 04/23/19 14:26; Admin Dose 100 MLS/HR; Start 04/22/19 at 14:00 Daptomycin 500 mg/ Sodium Chloride 100 ml @ 200 mls/hr Q24H IVPB Last administered on 04/23/19 17:16; Admin Dose 200 MLS/HR; Start 04/22/19 at 15:00 Meropenem/Sodium Chloride 50 ml @ 100 mls/hr Q8 IVPB Last administered on 04/23/19 13:39; Admin Dose 100 MLS/HR; Start 04/22/19 at 14:00 Insulin Aspart (Novolog Insulin Pen) NOVOLOG *MILD* ALGORI... AC MEALS AND BEDTIME SC Last administered on 04/23/19 17:19; Admin Dose 1 UNIT; Start 04/22/19 at 17:35 Acetaminophen (Tylenol Tab) 650 mg Q6H PRN PO MILD PAIN(1-3)OR ELEVATED TEMP Last administered on 04/22/19 21:04; Admin Dose 650 MG; Start 04/22/19 at 21:00 Trazodone HCl (Desyrel) 25 mg HS PO Last administered on 04/22/19 21:45; Admin Dose 25 MG; Start 04/23/19 at 21:00 Morphine Sulfate (morphine) 2 mg Q4H PRN IV SEVERE PAIN LEVEL 7-10 Last administered on 04/22/19 21:45; Admin Dose 2 MG; Start 04/22/19 at 21:30 Ondansetron HCl (Zofran Inj) 4 mg Q4H PRN IV NAUSEA AND/OR VOMITING Last a dministered on 04/22/19 21:45; Admin Dose 4 MG; Start 04/22/19 at 22:00 Ibuprofen (Motrin) 400 mg Q6H PRN PO MILD PAIN(1-3) OR TEMP>38C Last administered on 04/22/19 23:17; Admin Dose 400 MG; Start 04/22/19 at 23:30; Stop 04/24/19 at 23:30 Insulin Aspart (Novolog Insulin Pen) 10 unit WITH MEALS SC Last administered on 04/23/19at 17:18; Admin Dose 10 UNIT; Start 04/23/19 at 11:30 Insulin Glargine (Lantus) 30 units WITH BREAKFAST SC ; Start 04/24/19 at 08:00 Lisinopril (Zestril) 10 mg DAILY PO Last administered on 04/23/19at 09:26; Admin Dose 10 MG; Start 04/23/19 at 09:30 Heparin Sodium (Porcine) (Heparin (5000 Units/1ml)) 5,000 unit BID SC ; Start 04/23/19 at 21:00 Sodium Hypochlorite (Dakins Diluted (1/40)) 1 applic DAILY TP ; Start 04/24/19 at 09:00 IV Flush (NS 10 ml) 10 ml PRN PRN IV per protocol; Start 04/23/19 at 18:00 VINICIUS ARRIETA DPM Apr 23, 2019 18:01
[2019-04-23] MEDS ORDERED: traZODone 50 MG TAB ONE (19:53)
[2019-04-23 20:00] VITALS: BP 166/84; PULSE 92; RESP 19
[2019-04-23] MEDS: traZODone 50 MG TAB PO SCH (20:40)
[2019-04-23] MEDS: HEPARIN 5,000 UNIT/1 ML VIAL SC SCH (20:43)
[2019-04-23] MEDS: ACETAMINOPHEN 325 MG TAB PO PRN (20:44)
[2019-04-24] MEDS: ACCU-CHEK XX SCH (02:00)
[2019-04-24 02:54] VITALS: BP 139/83; PULSE 76; RESP 20
[2019-04-24] MEDS: SOD CHLORIDE 0.9% 1,000 ML IV SCH ×2 (05:56→10:53)
[2019-04-24] MEDS: MEROPENEM 1 GM/50ML(PMX) 50 ML IVPB SCH ×2 (06:16→14:15)
[2019-04-24] MEDS: INSULIN ASPART [NOVOLOG] 3 ML PEN SC SCH ×7 (08:16→21:00)
[2019-04-24] MEDS: INSULIN GLARGINE [LANTus] (100 UNITS/ML) SYG SC SCH (08:22)
[2019-04-24] MEDS: HEPARIN 5,000 UNIT/1 ML VIAL SC SCH ×2 (08:22→21:30)
[2019-04-24 08:30] VITALS: BP 128/69; PULSE 93; RESP 18
[2019-04-24] MEDS: OXCARBAZEPINE 300 MG TAB PO SCH ×2 (09:47→23:17)
[2019-04-24] MEDS: BUSPIRONE 10 MG TAB PO SCH (09:47)
[2019-04-24] MEDS: GABAPENTIN 100 MG CAP PO SCH ×3 (09:47→21:25)
[2019-04-24] MEDS: AMLODIPINE 5 MG TAB PO SCH (09:47)
[2019-04-24] MEDS: LISINOPRIL 10 MG TAB PO SCH (09:48)
[2019-04-24] MEDS: DAKINS 0.0125%(1/40) 473 ML SOLUTION TP SCH (10:53)
--- NOTE | 2019-04-24 12:52 | PN ---
Date/Time of Note Date/Time of Note DATE: 04/24/19 TIME: 12:31 Assessment/Plan VTE Prophylaxis Risk score (from Ns)>0 risk: 7 SCD applied (from Ns): No SCD contraindicated: other Pharmacological prophylaxis: heparin Lines/Catheters IV C[facility]ter Type ([facility] PICC Line Central line still needed: Yes Assessment/Plan Hospital Course SUBJECTIVE: No acute overnight episodes. OBJECTIVE: Vital signs-see below PHYSICAL EXAM: Constitutional: Adequately built,not in acute distress. HEENT: Head atraumatic and normocephalic. Eyes: Extraocular muscles intact. An icteric sclerae. Pupils equal bilaterally, reactive to light. NECK: Supple without lymph node. CHEST: Clear and good breath sounds equally. No wheezing. No rhonchi. HEART: S1, S2. Regular rate and rhythm. ABDOMEN: Soft/non tender with no rebound tenderness. Bowel sounds were present. EXTREMITIES:L foot bandaged. NEUROLOGIC: Alert and oriented x3. No focal deficit. No sensory deficit. PSYCHOSOCIAL: No signs of depression. INTEGUMENTARY: No open wounds. ASSESSMENT AND PLAN:43 yo M w/dm2,rt foot om, admitted with left big toe ulceration and foot cellulitis.. Sepsis Source:left foot ulceration w/gas gangrene -Improving nicely. -f/u cultures Left foot gas gangrene/cellulitis -Appreciate excellent care of . s/p emergent I&D w/excisional debridement in OR 04/23/19-> recommended antimicrobial continuation with outpatient follow-up for possible HBO therapy. -cont. abx -WC growing CoagNS/GBS Left hallux osteomyelitis -Continue IV antimicrobials. Anticipate 6 weeks. LACEY on CKD -Renal fxn back to normal after fluid challenge. -Tolerating MCKENNA inhibitors. -monitor DMII -Stable -Basal/bolus insulin-adjust for optimal control to allow wound healing -Carbohydrate controlled diet. Essential hypertension -cont.acei/ hydralazine/amlodipine dvt ppx:heparin Dispo: Overall, patient is improving. He needs to be continued on IV antimicrobials . cont.current mgmt. F/u final culture. patient was seen in collaboration with Result Diagram: 04/24/19 0604/24/19 0601 Results 24hrs Laboratory Tests Test 04/23/19 17:16 04/23/19 20:36 04/24/19 06:01 04/24/19 08:01 Bedside Glucose 162 170 192 White Blood Count 10.8 Red Blood Count 3.73 L Hemoglobin 9.3 L Hematocrit 28.7 L Mean Corpuscular 76.9 L Volume Mean Corpuscular 24.9 L Hemoglobin Mean Corpuscular 32.4 Hemoglobin Concent Red Cell Distribution 13.0 Width Platelet Count 369 Mean Platelet Volume 10.8 H Immature Granulocytes 0.700 H % Neutrophils % 76.9 Lymphocytes % 12.7 L Monocytes % 6.9 Eosinophils % 2.4 Basophils % 0.4 Nucleated Red Blood 0.0 Cells % Immature Granulocytes 0.080 H # Neutrophils # 8.3 H Lymphocytes # 1.4 Monocytes # 0.8 Eosinophils # 0.3 Basophils # 0.0 Nucleated Red Blood 0.0 Cells # Erythrocyte 122 H Sedimentation Rate Sodium Level 138 Potassium Level 4.3 Chloride Level 105 Carbon Dioxide Level 23 Anion Gap 10 Blood Urea Nitrogen 15 Creatinine 1.01 Est Glomerular Filtrat > 60 Rate mL/min Glucose Level 144 Calcium Level 8.7 C-Reactive Protein 20.9 H Exam/Review of Systems Exam Vitals Vital Signs Date Temp Pulse Resp B/P (MAP) Pulse Ox O2 O2 Flow FiO2 Time Delivery Rate 04/24/19 99.1 93 18 128/69 98 Room Air 08:30 (88) Intake and Output 04/23/19 04/23/19 04/24/19 1515:00 23:00 07:00 IntakeIntake Total 800 ml 1000 ml 550 ml OutputOutput Total 900 ml BalanceBalance 800 ml 100 ml 550 ml Results Results 24hrs Laboratory Tests Test 04/23/19 17:16 04/23/19 20:36 04/24/19 06:01 04/24/19 08:01 Bedside Glucose 162 170 192 White Blood Count 10.8 Red Blood Count 3.73 L Hemoglobin 9.3 L Hematocrit 28.7 L Mean Corpuscular 76.9 L Volume Mean Corpuscular 24.9 L Hemoglobin Mean Corpuscular 32.4 Hemoglobin Concent Red Cell Distribution 13.0 Width Platelet Count 369 Mean Platelet Volume 10.8 H Immature Granulocytes 0.700 H % Neutrophils % 76.9 Lymphocytes % 12.7 L Monocytes % 6.9 Eosinophils % 2.4 Basophils % 0.4 Nucleated Red Blood 0.0 Cells % Immature Granulocytes 0.080 H # Neutrophils # 8.3 H Lymphocytes # 1.4 Monocytes # 0.8 Eosinophils # 0.3 Basophils # 0.0 Nucleated Red Blood 0.0 Cells # Erythrocyte 122 H Sedimentation Rate Sodium Level 138 Potassium Level 4.3 Chloride Level 105 Carbon Dioxide Level 23 Anion Gap 10 Blood Urea Nitrogen 15 Creatinine 1.01 Est Glomerular Filtrat > 60 Rate mL/min Glucose Level 144 Calcium Level 8.7 C-Reactive Protein 20.9 H Medications Medication Current Medications Diagnostic Test (Pha) (Accu-Chek) 1 ea 02 XX Last administered on 04/23/19at 02:08; Admin Dose 1 EA; Start 04/22/19 at 02:00 Miscellaneous Information 1 ea NOTE XX ; Start 04/22/19 at 01:30 Glucose (Glutose) 15 gm Q15M PRN PO DECREASED GLUCOSE; Start 04/22/19 at 01:30 Glucose (Glutose) 22.5 gm Q15M PRN PO DECREASED GLUCOSE; Start 04/22/19 at 01:30 Dextrose (D50w Syringe) 25 ml Q15M PRN IV DECREASED GLUCOSE; Start 04/22/19 at 01:30 Dextrose (D50w Syringe) 50 ml Q15M PRN IV DECREASED GLUCOSE; Start 04/22/19 at 01:30 Glucagon (Glucagen) 1 mg Q15M PRN IM DECREASED GLUCOSE; Start 04/22/19 at 01:30 Glucose (Glutose) 15 gm Q15M PRN BUCCAL DECREASED GLUCOSE; Start 04/22/19 at 01:30 Buspirone HCl (Buspar) 10 mg DAILY PO Last administered on 04/24/19at 09:47; Admin Dose 10 MG; Start 04/22/19 at 09:00 Gabapentin (Neurontin) 100 mg TID PO Last administered on 04/24/19 09:47; Admin Dose 100 MG; Start 04/22/19 at 09:00 Lisinopril (Zestril) 20 mg DAILY PO Last administered on 04/22/19at 08:59; Admin Dose 20 MG; Start 04/22/19 at 09:00; Status Hold Oxcarbazepine (Trileptal) 300 mg BID PO Last administered on 04/24/19at 09:47; Admin Dose 300 MG; Start 04/22/19 at 09:00 Miscellaneous Information (Pending Santyl Order For Wound Care) This patient mario... PRN PRN XX WOUND CARE; Start 04/22/19 at 02:00 Hydralazine HCl (Apresoline) 25 mg Q8 PO Last administered on 04/24/19 06:17; Admin Dose 25 MG; Start 04/22/19 at 14:00 Amlodipine Besylate (Norvasc) 5 mg DAILY PO Last administered on 04/24/19 09:47; Admin Dose 5 MG; Start 04/22/19 at 13:00 Sodium Chloride 1,000 ml @ 100 mls/hr Q10H IV Last administered on 04/24/19 10:53; Admin Dose 100 MLS/HR; Start 04/22/19 at 14:00 Daptomycin 500 mg/ Sodium Chloride 100 ml @ 200 mls/hr Q24H IVPB Last administered on 04/23/19 17:16; Admin Dose 200 MLS/HR; Start 04/22/19 at 15:00 Meropenem/Sodium Chloride 50 ml @ 100 mls/hr Q8 IVPB Last administered on 04/24/19 06:16; Admin Dose 100 MLS/HR; Start 04/22/19 at 14:00 Acetaminophen (Tylenol Tab) 650 mg Q6H PRN PO MILD PAIN(1-3)OR ELEVATED TEMP Last administered on 04/23/19 20:44; Admin Dose 650 MG; Start 04/22/19 at 21:00 Trazodone HCl (Desyrel) 25 mg HS PO Last administered on 04/23/19 20:40; Admin Dose 25 MG; Start 04/23/19 at 21:00 Morphine Sulfate (morphine) 2 mg Q4H PRN IV SEVERE PAIN LEVEL 7-10 Last administered on 04/22/19 21:45; Admin Dose 2 MG; Start 04/22/19 at 21:30 Ondansetron HCl (Zofran Inj) 4 mg Q4H PRN IV NAUSEA AND/OR VOMITING Last administered on 04/22/19 21:45; Admin Dose 4 MG; Start 04/22/19 at 22:00 Ibuprofen (Motrin) 400 mg Q6H PRN PO MILD PAIN(1-3) OR TEMP>38C Last administer ed on 04/22/19 23:17; Admin Dose 400 MG; Start 04/22/19 at 23:30; Stop 04/24/19 at 23:30 Insulin Aspart (Novolog Insulin Pen) 10 unit WITH MEALS SC Last administered on 04/24/19 08:16; Admin Dose 10 UNIT; Start 04/23/19 at 11:30 Insulin Glargine (Lantus) 30 units WITH BREAKFAST SC Last administered on 04/24/19 08:22; Admin Dose 30 UNITS; Start 04/24/19 at 08:00 Lisinopril (Zestril) 10 mg DAILY PO Last administered on 04/24/19 09:48; Admin Dose 10 MG; Start 04/23/19 at 09:30 Heparin Sodium (Porcine) (Heparin (5000 Units/1ml)) 5,000 unit BID SC Last administered on 04/24/19 08:22; Admin Dose 5,000 UNIT; Start 04/23/19 at 21:00 Sodium Hypochlorite (Dakins Diluted (/40)) 1 applic DAILY TP Last administered on 04/24/19 10:53; Admin Dose 1 APPLIC; Start 04/24/19 at 09:00 IV Flush (NS 10 ml) 10 ml PRN PRN IV per protocol; Start 04/23/19 at 18:00 Insulin Aspart (Novolog Insulin Pen) NOVOLOG *MILD* ALGORITHM WITH MEALS BEDTIME SC Last administered on 04/24/19 08:17; Admin Dose 2 UNIT; Start 04/23/19 at 21:30 SUZIE CESPEDES NP Apr 24, 2019 12:47
[2019-04-24 14:30] VITALS: BP 119/60; PULSE 85; RESP 18
--- NOTE | 2019-04-24 15:31 | CONS ---
Assessment/Plan Assessment/Plan Hospital Course (Demo Recall) No acute events, patient is awake looks comfortable Microbiology: Wound culture growing strep and coag negative staph Chest x-ray on admission revealed no evidence for acute cardiopulmonary process Antimicrobials: Daptomycin, meropenem Allergy: Vancomycin Physical examination: Obese well-developed middle-aged man in no distress head atraumatic normocephalic neck is supple chest rise symmetrical breath sounds diminished to bases heart S1-S2 abdomen soft bowel sounds present extremities with left foot dressing Assessment: 1. Sepsis, present on admission 2. Left foot osteomyelitis/gas gangrene status post I&D 3. Diabetes with peripheral neuropathy 4. Obesity 5. Acute kidney insufficiency Plan: Patient is stable, change abx to Clindamycin, anticipate dc on IV abx for [address] Celestin Consultation Date/Type/Reason Admit Date/Time Apr 21, 2019 at 22:15 Initial Consult Date Type of Consult id Date/Time of Note DATE: 04/24/19 TIME: 15:28 Exam/Review of Systems Exam Vitals Vital Signs Date Temp Pulse Resp B/P (MAP) Pulse Ox O2 O2 Flow FiO2 Time Delivery Rate 04/24/19 99.1 93 18 128/69 98 Room Air 08:30 (88) Intake and Output 04/23/19 04/23/19 04/24/19 1515:00 23:00 07:00 IntakeIntake Total 800 ml 1000 ml 550 ml OutputOutput Total 900 ml BalanceBalance 800 ml 100 ml 550 ml Results Result Diagram: 04/24/19 0601 04/24/19 0601 Results 24hrs Laboratory Tests Test 04/23/19 17:16 04/23/19 20:36 04/24/19 06:01 04/24/19 08:01 Bedside Glucose 162 170 192 White Blood Count 10.8 Red Blood Count 3.73 L Hemoglobin 9.3 L Hematocrit 28.7 L Mean Corpuscular 76.9 L Volume Mean Corpuscular 24.9 L Hemoglobin Mean Corpuscular 32.4 Hemoglobin Concent Red Cell Distribution 13.0 Width Platelet Count 369 Mean Platelet Volume 10.8 H Immature Granulocytes 0.700 H % Neutrophils % 76.9 Lymphocytes % 12.7 L Monocytes % 6.9 Eosinophils % 2.4 Basophils % 0.4 Nucleated Red Blood 0.0 Cells % Immature Granulocytes 0.080 H # Neutrophils # 8.3 H Lymphocytes # 1.4 Monocytes # 0.8 Eosinophils # 0.3 Basophils # 0.0 Nucleated Red Blood 0.0 Cells # Erythrocyte 122 H Sedimentation Rate Sodium Level 138 Potassium Level 4.3 Chloride Level 105 Carbon Dioxide Level 23 Anion Gap 10 Blood Urea Nitrogen 15 Creatinine 1.01 Est Glomerular > 60 Filtrat Rate mL/min Glucose Level 144 Calcium Level 8.7 C-Reactive Protein 20.9 H Procalcitonin 0.32 H Test 04/24/19 12:29 Bedside Glucose 195 Medications Medication Current Medications Diagnostic Test (Pha) (Accu-Chek) 1 ea 02 XX Last administered on 04/23/19at 0 2:08; Admin Dose 1 EA; Start 04/22/19 at 02:00 Miscellaneous Information 1 ea NOTE XX ; Start 04/22/19 at 01:30 Glucose (Glutose) 15 gm Q15M PRN PO DECREASED GLUCOSE; Start 04/22/19 at 01:30 Glucose (Glutose) 22.5 gm Q15M PRN PO DECREASED GLUCOSE; Start 04/22/19 at 01:30 Dextrose (D50w Syringe) 25 ml Q15M PRN IV DECREASED GLUCOSE; Start 04/22/19 at 01:30 Dextrose (D50w Syringe) 50 ml Q15M PRN IV DECREASED GLUCOSE; Start 04/22/19 at 01:30 Glucagon (Glucagen) 1 mg Q15M PRN IM DECREASED GLUCOSE; Start 04/22/19 at 01:30 Glucose (Glutose) 15 gm Q15M PRN BUCCAL DECREASED GLUCOSE; Start 04/22/19 at 01: 30 Buspirone HCl (Buspar) 10 mg DAILY PO Last administered on 04/24/19at 09:47; Admin Dose 10 MG; Start 04/22/19 at 09:00 Gabapentin (Neurontin) 100 mg TID PO Last administered on 04/24/19at 12:41; Adm in Dose 100 MG; Start 04/22/19 at 09:00 Lisinopril (Zestril) 20 mg DAILY PO Last administered on 04/22/19at 08:59; Admin Dose 20 MG; Start 04/22/19 at 09:00; Status Hold Oxcarbazepine (Trileptal) 300 mg BID PO Last administered on 04/24/19at 09:47; Admin Dose 300 MG; Start 04/22/19 at 09:00 Miscellaneous Information (Pending Santyl Order For Wound Care) This patient mario... PRN PRN XX WOUND CARE; Start 04/22/19 at 02:00 Hydralazine HCl (Apresoline) 25 mg Q8 PO Last administered on 04/24/19 14:15; Admin Dose 25 MG; Start 04/22/19 at 14:00 Amlodipine Besylate (Norvasc) 5 mg DAILY PO Last administered on 04/24/19 09:47; Admin Dose 5 MG; Start 04/22/19 at 13:00 Sodium Chloride 1,000 ml @ 100 mls/hr Q10H IV Last administered on 04/24/19 10:53; Admin Dose 100 MLS/HR; Start 04/22/19 at 14:00 Daptomycin 500 mg/ Sodium Chloride 100 ml @ 200 mls/hr Q24H IVPB Last administered on 04/23/19 17:16; Admin Dose 200 MLS/HR; Start 04/22/19 at 15:00 Meropenem/Sodium Chloride 50 ml @ 100 mls/hr Q8 IVPB Last administered on 04/24/19 14:15; Admin Dose 100 MLS/HR; Start 04/22/19 at 14:00 Acetaminophen (Tylenol Tab) 650 mg Q6H PRN PO MILD PAIN(1-3)OR ELEVATED TEMP Last administered on 04/23/19 20:44; Admin Dose 650 MG; Start 04/22/19 at 21:00 Trazodone HCl (Desyrel) 25 mg HS PO Last administered on 04/23/19 20:40; Admin Dose 25 MG; Start 04/23/19 at 21:00 Morphine Sulfate (morphine) 2 mg Q4H PRN IV SEVERE PAIN LEVEL 7-10 Last administered on 04/22/19 21:45; Admin Dose 2 MG; Start 04/22/19 at 21:30 Ondansetron HCl (Zofran Inj) 4 mg Q4H PRN IV NAUSEA AND/OR VOMITING Last administered on 04/22/19 21:45; Admin Dose 4 MG; Start 04/22/19 at 22:00 Ibuprofen (Motrin) 400 mg Q6H PRN PO MILD PAIN(1-3) OR TEMP>38C Last administered on 04/22/19 23:17; Admin Dose 400 MG; Start 04/22/19 at 23:30; Stop 04/24/19 at 23:30 Insulin Aspart (Novolog Insulin Pen) 10 unit WITH MEALS SC Last administered on 04/24/19 12:40; Admin Dose 10 UNIT; Start 04/23/19 at 11:30 Insulin Glargine (Lantus) 30 units WITH BREAKFAST SC Last administered on 04/24/19 08:22; Admin Dose 30 UNITS; Start 04/24/19 at 08:00 Lisinopril (Zestril) 10 mg DAILY PO Last administered on 04/24/19 09:48; Admin Dose 10 MG; Start 04/23/19 at 09:30 Heparin Sodium (Porcine) (Heparin (5000 Units/1ml)) 5,000 unit BID SC Last administered on 04/24/19 08:22; Admin Dose 5,000 UNIT; Start 04/23/19 at 21:00 Sodium Hypochlorite (Dakins Diluted ()) 1 applic DAILY TP Last administered on 04/24/19 10:53; Admin Dose 1 APPLIC; Start 04/24/19 at 09:00 IV Flush (NS 10 ml) 10 ml PRN PRN IV per protocol; Start 04/23/19 at 18:00 Insulin Aspart (Novolog Insulin Pen) NOVOLOG *MILD* ALGORITHM WITH MEALS BEDTIME SC Last administered on 04/24/19 12:41; Admin Dose 2 UNIT; Start 04/23/19 at 21:30 SUREKHA LINDA NP Apr 24, 2019 15:31
--- NOTE | 2019-04-24 16:46 | PSY ---
Date/Time of Note Date/Time of Note DATE: 04/24/19 TIME: 16:41 Psychiatric Subjective Eval Consent Pt consented to telemedicine: No Subjective Evaluation Patient location: inpatient Chief Complaint: PT has a diabetic ulcer to L foot [facility] History of present illness Patient is a 51-year-old male with underlying medical history of hypertension, diabetes and CKD, admitted for right foot osteomyelitis. On a [id number] evaluation, patient is extremely anxious very talkative reports feeling depressed and reports extreme anxiety afraid that his current may be cheating on him patient also is very worried that he may not be able to take care of himself he has poor impulse control poor coping skills. Discussed risk and benefits of antidepressants and he verbalized understanding. Past psychiatric history Long history of depression Medical history Problems Medical Problems: (1) Acute renal failure Status: Acute (2) Allergic reaction caused by a drug Status: Acute (3) Ankle injury Status: Acute (4) Cellulitis of left foot Status: Acute (5) Cellulitis, toe Status: Acute (6) Chronic ulcer of left foot Status: Acute (7) CKD (chronic kidney disease) Status: Acute (8) Diabetes mellitus Status: Acute (9) Diabetes mellitus with hyperglycemia Status: Acute (10) Infected ulcer of skin Status: Acute (11) Sepsis Status: Acute (12) Vancomycin adverse reaction Status: Acute Allergies: Coded Allergies: vancomycin (Unverified Allergy, Unknown, 04/21/19) Substance Abuse Substance abuse history: No Prior substance abuse treatmen: No Social History Marital status: other ( but living with a partner right now) DPA/Conservatorship: No Psychiatric Objective Eval Review of Systems: Review of Systems: Not Applicable Physical Examination: Appetite: Decreased Interest: Decreased Mental Status Examination: Appearance: Poor Hygiene Eye Contact: Poor Behavior: Cooperative Speech: Soft AFFECT: Flat, Anxious Mood: Depressed, Anxious Orientation: x3 Insight: Moderate Judgement: Moderate Attention Span: Distractible Laboratory Results Laboratory Tests Test 04/22/19 17:29 04/22/19 20:57 04/23/19 02:08 04/23/19 05:35 Bedside Glucose 206 mg/dL 201 mg/dL 156 mg/dL White Blood Count 12.9 10^3/ul Red Blood Count 3.93 10^6/ul Hemoglobin 10.0 g/dl Hematocrit 30.5 % Mean Corpuscular 77.6 fl Volume Mean Corpuscular 25.4 pg Hemoglobin Mean Corpuscular 32.8 g/dl Hemoglobin Concent Red Cell 12.8 % Distribution Width Platelet Count 348 10^3/UL Mean Platelet 10.8 fl Volume Immature 0.800 % Granulocytes % Neutrophils % 77.0 % Lymphocytes % 11.8 % Monocytes % 8.5 % Eosinophils % 1.6 % Basophils % 0.3 % Nucleated Red Blood 0.0 /100WBC Cells % Immature 0.100 10^3/ul Granulocytes # Neutrophils # 9.9 10^3/ul Lymphocytes # 1.5 10^3/ul Monocytes # 1.1 10^3/ul Eosinophils # 0.2 10^3/ul Basophils # 0.0 10^3/ul Nucleated Red Blood 0.0 10^3/ul Cells # Sodium Level 137 mmol/L Potassium Level 4.1 mmol/L Chloride Level 104 mmol/L Carbon Dioxide 23 mmol/L Level Anion Gap 10 Blood Urea Nitrogen 14 mg/dl Creatinine 1.12 mg/dl Est Glomerular > 60 mL/min Filtrat Rate mL/min Glucose Level 165 mg/dl Calcium Level 8.7 mg/dl Magnesium Level 1.7 mg/dl Creatine Kinase 83 IU/L Test 04/23/19 07:56 04/23/19 10:14 04/23/19 12:12 04/23/19 17:16 Bedside Glucose 171 mg/dL 181 mg/dL 162 mg/dL Erythrocyte 105 mm/Hr Sedimentation Rate C-Reactive Protein 22.2 mg/dl Procalcitonin 0.41 ng/mL Test 04/23/19 20:36 04/24/19 06:01 04/24/19 08:01 04/24/19 12:29 Bedside Glucose 170 mg/dL 192 mg/dL 195 mg/dL White Blood Count 10.8 10^3/ul Red Blood Count 3.73 10^6/ul Hemoglobin 9.3 g/dl Hematocrit 28.7 % Mean Corpuscular 76.9 fl Volume Mean Corpuscular 24.9 pg Hemoglobin Mean Corpuscular 32.4 g/dl Hemoglobin Concent Red Cell 13.0 % Distribution Width Platelet Count 369 10^3/UL Mean Platelet 10.8 fl Volume Immature 0.700 % Granulocytes % Neutrophils % 76.9 % Lymphocytes % 12.7 % Monocytes % 6.9 % Eosinophils % 2.4 % Basophils % 0.4 % Nucleated Red Blood 0.0 /100WBC Cells % Immature 0.080 10^3/ul Granulocytes # Neutrophils # 8.3 10^3/ul Lymphocytes # 1.4 10^3/ul Monocytes # 0.8 10^3/ul Eosinophils # 0.3 10^3/ul Basophils # 0.0 10^3/ul Nucleated Red Blood 0.0 10^3/ul Cells # Erythrocyte 122 mm/Hr Sedimentation Rate Sodium Level 138 mmol/L Potassium Level 4.3 mmol/L Chloride Level 105 mmol/L Carbon Dioxide 23 mmol/L Level Anion Gap 10 Blood Urea Nitrogen 15 mg/dl Creatinine 1.01 mg/dl Est Glomerular > 60 mL/min Filtrat Rate mL/min Glucose Level 144 mg/dl Calcium Level 8.7 mg/dl C-Reactive Protein 20.9 mg/dl Procalcitonin 0.32 ng/mL Assessment and Plan Assessment/Diagnosis Diagnosis Major depressive disorder severe recurrent without psychosis Recommendation/Plan Medication Management Trileptal 300 mg twice daily, BuSpar 10 mg twice daily, by pending 100 mg 3 times daily, and Cymbalta 20 mg 2 times a day. Multiple antipsychotics: No Discharge Disposition: Other Legal Status: Voluntary (Patient does not meet criteria for inpatient psychiatry, does not meet criteria for 5150 hold.) ED ALDRICH NP Apr 24, 2019 16:46
--- NOTE | 2019-04-24 18:57 | CONS ---
Assessment/Plan Assessment/Plan Assessment/Plan (Daily) Left foot gas gangrene - excisional debridement (DOS: 04/22/19) Left lower extremity cellulitis Left foot diabetic foot ulcer DM2 with peripheral neuropathy Hx of right foot osteomyelitis Depression HTN CKD Plan Patient tolerated surgical debridement well 04/22/19. Recommend daily irrigation of dakins, application of 1/4in iodoform packing and betadine 4x4 gauze with kerlix and rosetta wrap. Appreciate ID recommendations for antibiotic therapy. Patient will likely need longterm IV PICC line abx. Wound cultures showing: staph coag neg, diptheroids, strep group B. Intra op bone pathology pending. Reviewed MRI findings and concern for osteomyelitis of left foot. Patient would likely benefit from HBO therapy in the outpatient setting. Patient has exhibited signs of distress and depression. Patient planned for transfer to the 5th floor. Non weight bearing to left lower extremity. PT/OT evaluation appreciated. Non invasive arterial studies showed: increased velocities in the left posterior tibial artery. Monophasic waveforms in the left posterior tibial and dorsalis pedis. Patient would benefit from vascular surgery evaluation. Consultation Date/Type/Reason Admit Date/Time Apr 21, 2019 at 22:15 Initial Consult Date Date/Time of Note DATE: 04/24/19 TIME: 18:57 24 HR Interval Summary Free Text/Dictation No acute events overnight. Exam/Review of Systems Exam Vitals Vital Signs Date Temp Pulse Resp B/P (MAP) Pulse Ox O2 O2 Flow FiO2 Time Delivery Rate 04/24/19 98.1 85 18 119/60 95 Room Air 14:30 (79) Intake and Output 04/23/19 04/23/19 04/24/19 1515:00 23:00 07:00 IntakeIntake Total 800 ml 1000 ml 550 ml OutputOutput Total 900 ml BalanceBalance 800 ml 100 ml 550 ml Exam 6 x 3 x 1.5cm where hallux and 2nd metatarsal bone could be probed. Fibrogranular wound bed. No active purulent drainage appreciated. Wound c ommunicates with plantar hallux ulceration which measures 2 x 1 x 1.8cm There is pain on palpation to the plantar aspect of the wound Residual erythema appreciated to surrounding ulceration site Absent protective sensations Pedal hairs present No sign of gangrene appreciated at this time to digits or surgical site CFT less than 3 seconds Results Result Diagram: 04/24/19 0601 04/24/19 0601 Results 24hrs Laboratory Tests Test 04/23/19 20:36 04/24/19 06:01 04/24/19 08:01 04/24/19 12:29 Bedside Glucose 170 192 195 White Blood Count 10.8 Red Blood Count 3.73 L Hemoglobin 9.3 L Hematocrit 28.7 L Mean Corpuscular 76.9 L Volume Mean Corpuscular 24.9 L Hemoglobin Mean Corpuscular 32.4 Hemoglobin Concent Red Cell 13.0 Distribution Width Platelet Count 369 Mean Platelet Volume 10.8 H Immature 0.700 H Granulocytes % Neutrophils % 76.9 Lymphocytes % 12.7 L Monocytes % 6.9 Eosinophils % 2.4 Basophils % 0.4 Nucleated Red Blood 0.0 Cells % Immature 0.080 H Granulocytes # Neutrophils # 8.3 H Lymphocytes # 1.4 Monocytes # 0.8 Eosinophils # 0.3 Basophils # 0.0 Nucleated Red Blood 0.0 Cells # Erythrocyte 122 H Sedimentation Rate Sodium Level 138 Potassium Level 4.3 Chloride Level 105 Carbon Dioxide Level 23 Anion Gap 10 Blood Urea Nitrogen 15 Creatinine 1.01 Est Glomerular > 60 Filtrat Rate mL/min Glucose Level 144 Calcium Level 8.7 C-Reactive Protein 20.9 H Procalcitonin 0.32 H Test 04/24/19 17:05 Bedside Glucose 95 Medications Medication Current Medications Diagnostic Test (Pha) (Accu-Chek) 1 ea 02 XX Last administered on 04/23/19at 02:08; Admin Dose 1 EA; Start 04/22/19 at 02:00 Miscellaneous Information 1 ea NOTE XX ; Start 04/22/19 at 01:30 Glucose (Glutose) 15 gm Q15M PRN PO DECREASED GLUCOSE; Start 04/22/19 at 01:30 Glucose (Glutose) 22.5 gm Q15M PRN PO DECREASED GLUCOSE; Start 04/22/19 at 01:30 Dextrose (D50w Syringe) 25 ml Q15M PRN IV DECREASED GLUCOSE; Start 04/22/19 at 01:30 Dextrose (D50w Syringe) 50 ml Q15M PRN IV DECREASED GLUCOSE; Start 04/22/19 at 01:30 Glucagon (Glucagen) 1 mg Q15M PRN IM DECREASED GLUCOSE; Start 04/22/19 at 01:30 Glucose (Glutose) 15 gm Q15M PRN BUCCAL DECREASED GLUCOSE; Start 04/22/19 at 01:30 Buspirone HCl (Buspar) 10 mg DAILY PO Last administered on 04/24/19 09:47; Admin Dose 10 MG; Start 04/22/19 at 09:00 Gabapentin (Neurontin) 100 mg TID PO Last administered on 04/24/19 12:41; Admin Dose 100 MG; Start 04/22/19 at 09:00 Lisinopril (Zestril) 20 mg DAILY PO Last administered on 04/22/19 08:59; Admin Dose 20 MG; Start 04/22/19 at 09:00; Status Hold Oxcarbazepine (Trileptal) 300 mg BID PO Last administered on 04/24/19 09:47; Admin Dose 300 MG; Start 04/22/19 at 09:00 [facility]isc[facility] This patient mario... PRN PRN XX WOUND CARE; Start 04/22/19 at 02:00 Hydralazine HCl (Apresoline) 25 mg Q8 PO Last administered on 04/24/19 14:15; Admin Dose 25 MG; Start 04/22/19 at 14:00 Amlodipine Besylate (Norvasc) 5 mg DAILY PO Last administered on 04/24/19 09:47; Admin Dose 5 MG; Start 04/22/19 at 13:00 Sodium Chloride 1,000 ml @ 100 mls/hr Q10H IV Last administered on 04/24/19 10:53; Admin Dose 100 MLS/HR; Start 04/22/19 at 14:00 Acetaminophen (Tylenol Tab) 650 mg Q6H PRN PO MILD PAIN(1-3)OR ELEVATED TEMP Last administered on 04/23/19 20:44; Admin Dose 650 MG; Start 04/22/19 at 21:00 Trazodone HCl (Desyrel) 25 mg HS PO Last administered on 04/23/19 20:40; Admin Dose 25 MG; Start 04/23/19 at 21:00 Morphine Sulfate (morphine) 2 mg Q4H PRN IV SEVERE PAIN LEVEL 7-10 Last administered on 04/22/19 21:45; Admin Dose 2 MG; Start 04/22/19 at 21:30 Ondansetron HCl (Zofran Inj) 4 mg Q4H PRN IV NAUSEA AND/OR VOMITING Last administered on 04/22/19 21:45; Admin Dose 4 MG; Start 04/22/19 at 22:00 Ibuprofen (Motrin) 400 mg Q6H PRN PO MILD PAIN(1-3) OR TEMP>38C Last administered on 04/22/19 23:17; Admin Dose 400 MG; Start 04/22/19 at 23:30; Stop 04/24/19 at 23:30 Insulin Aspart (Novolog Insulin Pen) 10 unit WITH MEALS SC Last administered on 04/24/19 17:07; Admin Dose 10 UNIT; Start 04/23/19 at 11:30 Insulin Glargine (Lantus) 30 units WITH BREAKFAST SC Last administered on 04/24/19 08:22; Admin Dose 30 UNITS; Start 04/24/19 at 08:00 Lisinopril (Zestril) 10 mg DAILY PO Last administered on 04/24/19 09:48; Admin Dose 10 MG; Start 04/23/19 at 09:30 Heparin Sodium (Porcine) (Heparin (5000 Units/1ml)) 5,000 unit BID SC Last administered on 04/24/19 08:22; Admin Dose 5,000 UNIT; Start 04/23/19 at 21:00 Sodium Hypochlorite (Dakins Diluted (/40)) 1 applic DAILY TP Last administered on 04/24/19 10:53; Admin Dose 1 APPLIC; Start 04/24/19 at 09:00 IV Flush (NS 10 ml) 10 ml PRN PRN IV per protocol; Start 04/23/19 at 18:00 Insulin Aspart (Novolog Insulin Pen) NOVOLOG *MILD* ALGORITHM WITH MEALS BEDTIME SC Last administered on 04/24/19 12:41; Admin Dose 2 UNIT; Start 04/23/19 at 21:30 Clindamycin HCl/ Dextrose 50 ml @ 50 mls/hr Q8 IVPB ; Start 04/24/19 at 22:00 Duloxetine HCl (Cymbalta) 20 mg BID PO ; Start 04/24/19 at 21:00 VINICIUS ARRIETA DPCoral Apr 24, 2019 18:57
[2019-04-24 20:00] VITALS: BP 126/71; PULSE 85; RESP 18
[2019-04-24 20:15] VITALS: BP 152/87; PULSE 89; RESP 18
[2019-04-24] MEDS: DULOXETINE 20 MG CAP DR PO SCH (21:24)
[2019-04-24] MEDS: traZODone 50 MG TAB PO SCH (21:25)
[2019-04-24] MEDS: CLINDAMYCIN 900 MG/D5W (PMX) 50 ML IVPB SCH (23:17)
[2019-04-25] MEDS ORDERED: GUAIFENESIN/DM 5ML CUP PO PRN (00:30)
[2019-04-25] MEDS ORDERED: ZOLPIDEM 5 MG TAB PO ONE (00:30)
[2019-04-25 02:00] VITALS: BP 130/71; PULSE 81; RESP 20
[2019-04-25] MEDS: ACCU-CHEK XX SCH (02:00)
[2019-04-25] MEDS: SOD CHLORIDE 0.9% 1,000 ML IV SCH ×2 (03:53→12:43)
[2019-04-25] MEDS ORDERED: ALTEPLASE (CATHFLO) 2 MG INJ CATHETER PRN ×2 (04:30→05:30)
[2019-04-25] MEDS: CLINDAMYCIN 900 MG/D5W (PMX) 50 ML IVPB SCH ×3 (05:52→22:20)
[2019-04-25 08:03] VITALS: BP 143/88; PULSE 81; RESP 20
[2019-04-25] MEDS: LISINOPRIL 10 MG TAB PO SCH (08:30)
[2019-04-25] MEDS: BUSPIRONE 10 MG TAB PO SCH (08:30)
[2019-04-25] MEDS: AMLODIPINE 5 MG TAB PO SCH (08:30)
[2019-04-25] MEDS: DULOXETINE 20 MG CAP DR PO SCH ×2 (08:30→20:30)
[2019-04-25] MEDS: GABAPENTIN 100 MG CAP PO SCH ×3 (08:30→20:30)
[2019-04-25] MEDS: OXCARBAZEPINE 300 MG TAB PO SCH ×2 (08:30→20:30)
[2019-04-25] MEDS: HEPARIN 5,000 UNIT/1 ML VIAL SC SCH ×2 (08:31→20:28)
[2019-04-25] MEDS: INSULIN ASPART [NOVOLOG] 3 ML PEN SC SCH ×7 (08:32→20:28)
[2019-04-25] MEDS: INSULIN GLARGINE [LANTus] (100 UNITS/ML) SYG SC SCH (08:34)
--- NOTE | 2019-04-25 11:59 | CONS ---
Assessment/Plan Assessment/Plan Hospital Course (Demo Recall) All noted. No acute events Microbiology: Wound culture growing strep, St aureus, corynebacterium and coag negative staph Chest x-ray on admission revealed no evidence for acute cardiopulmonary process Antimicrobials: Daptomycin, meropenem Allergy: Clindamycin Physical examination: Obese well-developed middle-aged man in no distress head atraumatic normocephalic neck is supple chest rise symmetrical breath sounds diminished to bases heart S1-S2 abdomen soft bowel sounds present extremities with left foot dressing Assessment: 1. Sepsis, present on admission 2. Left foot osteomyelitis/gas gangrene status post I&D 3. Diabetes with peripheral neuropathy 4. Obesity 5. Acute kidney insufficiency Plan: Stable, anticipate dc on IV abx for 6 weeks, await for final sensitivities, podiatry rec-s Dw Dr Celestin Consultation Date/Type/Reason Admit Date/Time Apr 21, 2019 at 22:15 Initial Consult Date Type of Consult id Date/Time of Note DATE: 04/25/19 TIME: 11:58 Exam/Review of Systems Exam Vitals Vital Signs Date Temp Pulse Resp B/P (MAP) Pulse Ox O2 O2 Flow FiO2 Time Delivery Rate 04/25/19 98.6 81 20 143/88 96 Room Air 08:03 (106) Intake and Output 04/24/19 04/24/19 04/25/19 1515:00 23:00 07:00 IntakeIntake Total 1710 ml 1010 ml 500 ml BalanceBalance 1710 ml 1010 ml 500 ml Results Result Diagram: 04/25/19 0843 04/25/19 0843 Results 24hrs Laboratory Tests Test 04/24/19 12:29 04/24/19 17:05 04/24/19 21:24 04/25/19 08:20 Bedside Glucose 195 95 166 190 Test 04/25/19 08:43 White Blood Count 8.9 Red Blood Count 3.75 L Hemoglobin 9.4 L Hematocrit 28.9 L Mean Corpuscular 77.1 L Volume Mean Corpuscular 25.1 L Hemoglobin Mean Corpuscular 32.5 Hemoglobin Concent Red Cell 13.0 Distribution Width Platelet Count 401 Mean Platelet Volume 10.3 Immature 0.900 H Granulocytes % Neutrophils % 74.4 Lymphocytes % 13.1 L Monocytes % 7.9 Eosinophils % 3.2 Basophils % 0.5 Nucleated Red Blood 0.0 Cells % Immature 0.080 H Granulocytes # Neutrophils # 6.6 Lymphocytes # 1.2 Monocytes # 0.7 Eosinophils # 0.3 Basophils # 0.0 Nucleated Red Blood 0.0 Cells # Sodium Level 137 Potassium Level 4.6 Chloride Level 105 Carbon Dioxide Level 25 Anion Gap 7 Blood Urea Nitrogen 15 Creatinine 0.94 Est Glomerular > 60 Filtrat Rate mL/min Glucose Level 204 Calcium Level 8.8 Medications Medication Current Medications Diagnostic Test (Pha) (Accu-Chek) 1 ea 02 XX Last administered on 04/23/19at 02:08; Admin Dose 1 EA; Start 04/22/19 at 02:00 Miscellaneous Information 1 ea NOTE XX ; Start 04/22/19 at 01:30 Glucose (Glutose) 15 gm Q15M PRN PO DECREASED GLUCOSE; Start 04/22/19 at 01:30 Glucose (Glutose) 22.5 gm Q15M PRN PO DECREASED GLUCOSE; Start 04/22/19 at 01:30 Dextrose (D50w Syringe) 25 ml Q15M PRN IV DECREASED GLUCOSE; Start 04/22/19 at 01:30 Dextrose (D50w Syringe) 50 ml Q15M PRN IV DECREASED GLUCOSE; Start 04/22/19 at 01:30 Glucagon (Glucagen) 1 mg Q15M PRN IM DECREASED GLUCOSE; Start 04/22/19 at 01:30 Glucose (Glutose) 15 gm Q15M PRN BUCCAL DECREASED GLUCOSE; Start 04/22/19 at 01:30 Buspirone HCl (Buspar) 10 mg DAILY PO Last administered on 04/25/19at 08:30; Admin Dose 10 MG; Start 04/22/19 at 09:00 Gabapentin (Neurontin) 100 mg TID PO Last administered on 04/25/19at 08:30; Admin Dose 100 MG; Start 04/22/19 at 09:00 Lisinopril (Zestril) 20 mg DAILY PO Last administered on 04/22/19at 08:59; Admin Dose 20 MG; Start 04/22/19 at 09:00; Status Hold Oxcarbazepine (Trileptal) 300 mg BID PO Last administered on 04/25/19at 08:30; Admin Dose 300 MG; Start 04/22/19 at 09:00 Miscellaneous Information (Pending Santyl Order For Wound Care) This patient mario... PRN PRN XX WOUND CARE; Start 04/22/19 at 02:00 Hydralazine HCl (Apresoline) 25 mg Q8 PO Last administered on 04/25/19 05:52; Admin Dose 25 MG; Start 04/22/19 at 14:00 Amlodipine Besylate (Norvasc) 5 mg DAILY PO Last administered on 04/25/19 08:30; Admin Dose 5 MG; Start 04/22/19 at 13:00 Sodium Chloride 1,000 ml @ 100 mls/hr Q10H IV Last administered on 04/25/19 03:53; Admin Dose 100 MLS/HR; Start 04/22/19 at 14:00 Acetaminophen (Tylenol Tab) 650 mg Q6H PRN PO MILD PAIN(1-3)OR ELEVATED TEMP Last administered on 04/23/19 20:44; Admin Dose 650 MG; Start 04/22/19 at 21:00 Trazodone HCl (Desyrel) 25 mg HS PO Last administered on 04/24/19 21:25; Admin Dose 25 MG; Start 04/23/19 at 21:00 Morphine Sulfate (morphine) 2 mg Q4H PRN IV SEVERE PAIN LEVEL 7-10 Last administered on 04/22/19 21:45; Admin Dose 2 MG; Start 04/22/19 at 21:30 Ondansetron HCl (Zofran Inj) 4 mg Q4H PRN IV NAUSEA AND/OR VOMITING Last administered on 04/22/19 21:45; Admin Dose 4 MG; Start 04/22/19 at 22:00 Insulin Aspart (Novolog Insulin Pen) 10 unit WITH MEALS SC Last administered on 04/25/19 08:32; Admin Dose 10 UNIT; Start 04/23/19 at 11:30 Insulin Glargine (Lantus) 30 units WITH BREAKFAST SC Last administered on 04/25/19 08:34; Admin Dose 30 UNITS; Start 04/24/19 at 08:00 Lisinopril (Zestril) 10 mg DAILY PO Last administered on 04/25/19 08:30; Admin Dose 10 MG; Start 04/23/19 at 09:30 Heparin Sodium (Porcine) (Heparin (5000 Units/1ml)) 5,000 unit BID SC Last administered on 04/25/19 08:31; Admin Dose 5,000 UNIT; Start 04/23/19 at 21:00 Sodium Hypochlorite (Dakins Diluted ()) 1 applic DAILY TP Last administered on 04/24/19at 10:53; Admin Dose 1 APPLIC; Start 04/24/19 at 09:00 IV Flush (NS 10 ml) 10 ml PRN PRN IV per protocol; Start 04/23/19 at 18:00 Insulin Aspart (Novolog Insulin Pen) NOVOLOG *MILD* ALGORITHM WITH MEALS BEDTIME SC Last administered on 04/25/19 08:33; Admin Dose 2 UNIT; Start 04/23/19 at 21:30 Clindamycin HCl/ Dextrose 50 ml @ 50 mls/hr Q8 IVPB Last administered on 04/25/19at 05:52; Admin Dose 50 MLS/HR; Start 04/24/19 at 22:00 Duloxetine HCl (Cymbalta) 20 mg BID PO Last administered on 04/25/19at 08:30; Admin Dose 20 MG; Start 04/24/19 at 21:00 Guaifenesin/ Dextromethorphan (Robitussin Dm Liquid Cup) 5 ml Q4H PRN PO cough Last administered on 04/25/19at 00:56; Admin Dose 5 ML; Start 04/25/19 at 00:30 Alteplase, Recombinant (Cathflo (Activase)) 2 mg MAY REPEAT X1 PRN CATHETER IF CATHETER REMAINS OCCULUDED; Start 04/25/19 at 05:30 SUREKHA LINDA [employer] Apr 25, 2019 11:59
--- NOTE | 2019-04-25 13:56 | PN ---
Date/Time of Note Date/Time of Note DATE: 04/25/19 TIME: 13:54 Assessment/Plan VTE Prophylaxis Risk score (from Nsg)>0 risk: 4 SCD applied (from Ns): No SCD contraindicated: other Pharmacological prophylaxis: heparin Lines/Catheters IV Catheter Type (from [facility]): PICC Line Central line still needed: Yes Assessment/Plan Hospital Course SUBJECTIVE: No acute overnight episodes. OBJECTIVE: Vital signs-see below PHYSICAL EXAM: Constitutional: Adequately built,not in acute distress. HEENT: Head atraumatic and normocephalic. Eyes: Extraocular muscles intact. An icteric sclerae. Pupils equal bilaterally, reactive to light. NECK: Supple without lymph node. CHEST: Clear and good breath sounds equally. No wheezing. No rhonchi. HEART: S1, S2. Regular rate and rhythm. ABDOMEN: Soft/non tender with no rebound tenderness. Bowel sounds were present. EXTREMITIES:L foot bandaged. NEUROLOGIC: Alert and oriented x3. No focal deficit. No sensory deficit. PSYCHOSOCIAL: No signs of depression. INTEGUMENTARY: No open wounds. ASSESSMENT AND PLAN:43 yo M w/dm2,rt foot om, admitted with left big toe ulceration and foot cellulitis.. Sepsis Source:left foot ulceration w/gas gangrene -clinically resolved -f/u final cultures Left foot gas gangrene/cellulitis -Appreciate excellent care of . s/p emergent I&D w/excisional debridement in OR 04/23/19-> recommended antimicrobial continuation with outpatient follow-up for possible HBO therapy. -cont. abx -WC growing polymicrobials-f/u final cs Left hallux osteomyelitis -Continue IV antimicrobials. Anticipate 6 weeks. LACEY on CKD -Renal fxn back to normal after fluid challenge. -Tolerating MCKENNA inhibitors. -monitor DMII -Stable -Basal/bolus insulin-adjust for optimal control to allow wound healing -Carbohydrate controlled diet. Essential hypertension -stable.cont.acei/ hydralazine/amlodipine Anemia likely 2/2 inflammation -HH stable -obtain iro panel and treat accordingly. dvt ppx:heparin Dispo: DC planning HHS w/6 wks IV abx (pending ID recs),APC f/u w/,possible HBP therapy. patient was seen in collaboration with Result Diagram: 04/25/19 0843 04/25/19 0843 Results 24hrs Laboratory Tests Test 04/24/19 17:05 04/24/19 21:24 04/25/19 08:20 04/25/19 08:43 Bedside Glucose 95 166 190 White Blood Count 8.9 Red Blood Count 3.75 L Hemoglobin 9.4 L Hematocrit 28.9 L Mean Corpuscular 77.1 L Volume Mean Corpuscular 25.1 L Hemoglobin Mean Corpuscular 32.5 Hemoglobin Concent Red Cell 13.0 Distribution Width Platelet Count 401 Mean Platelet Volume 10.3 Immature 0.900 H Granulocytes % Neutrophils % 74.4 Lymphocytes % 13.1 L Monocytes % 7.9 Eosinophils % 3.2 Basophils % 0.5 Nucleated Red Blood 0.0 Cells % Immature 0.080 H Granulocytes # Neutrophils # 6.6 Lymphocytes # 1.2 Monocytes # 0.7 Eosinophils # 0.3 Basophils # 0.0 Nucleated Red Blood 0.0 Cells # Sodium Level 137 Potassium Level 4.6 Chloride Level 105 Carbon Dioxide Level 25 Anion Gap 7 Blood Urea Nitrogen 15 Creatinine 0.94 Est Glomerular > 60 Filtrat Rate mL/min Glucose Level 204 Calcium Level 8.8 Test 04/25/19 12:27 Bedside Glucose 118 Exam/Review of Systems Exam Vitals Vital Signs Date Temp Pulse Resp B/P (MAP) Pulse Ox O2 O2 Flow FiO2 Time Delivery Rate 04/25/19 98.6 81 20 143/88 96 Room Air 08:03 (106) Intake and Output 04/24/19 04/24/19 04/25/19 1414:59 22:59 06:59 IntakeIntake Total 1710 ml 1010 ml 500 ml BalanceBalance 1710 ml 1010 ml 500 ml Results Results 24hrs Laboratory Tests Test 04/24/19 17:05 04/24/19 21:24 04/25/19 08:20 04/25/19 08:43 Bedside Glucose 95 166 190 White Blood Count 8.9 Red Blood Count 3.75 L Hemoglobin 9.4 L Hematocrit 28.9 L Mean Corpuscular 77.1 L Volume Mean Corpuscular 25.1 L Hemoglobin Mean Corpuscular 32.5 Hemoglobin Concent Red Cell 13.0 Distribution Width Platelet Count 401 Mean Platelet Volume 10.3 Immature 0.900 H Granulocytes % Neutrophils % 74.4 Lymphocytes % 13.1 L Monocytes % 7.9 Eosinophils % 3.2 Basophils % 0.5 Nucleated Red Blood 0.0 Cells % Immature 0.080 H Granulocytes # Neutrophils # 6.6 Lymphocytes # 1.2 Monocytes # 0.7 Eosinophils # 0.3 Basophils # 0.0 Nucleated Red Blood 0.0 Cells # Sodium Level 137 Potassium Level 4.6 Chloride Level 105 Carbon Dioxide Level 25 Anion Gap 7 Blood Urea Nitrogen 15 Creatinine 0.94 Est Glomerular > 60 Filtrat Rate mL/min Glucose Level 204 Calcium Level 8.8 Test 04/25/19 12:27 Bedside Glucose 118 Medications Medication Current Medications Diagnostic Test (Pha) (Accu-Chek) 1 ea 02 XX Last administered on 04/23/19at 02:08; Admin Dose 1 EA; Start 04/22/19 at 02:00 Miscellaneous Information 1 ea NOTE XX ; Start 04/22/19 at 01:30 Glucose (Glutose) 15 gm Q15M PRN PO DECREASED GLUCOSE; Start 04/22/19 at 01:30 Glucose (Glutose) 22.5 gm Q15M PRN PO DECREASED GLUCOSE; Start 04/22/19 at 01:30 Dextrose (D50w Syringe) 25 ml Q15M PRN IV DECREASED GLUCOSE; Start 04/22/19 at 01:30 Dextrose (D50w Syringe) 50 ml Q15M PRN IV DECREASED GLUCOSE; Start 04/22/19 at 01:30 Glucagon (Glucagen) 1 mg Q15M PRN IM DECREASED GLUCOSE; Start 04/22/19 at 01:30 Glucose (Glutose) 15 gm Q15M PRN BUCCAL DECREASED GLUCOSE; Start 04/22/19 at 01 :30 Buspirone HCl (Buspar) 10 mg DAILY PO Last administered on 04/25/19at 08:30; Admin Dose 10 MG; Start 04/22/19 at 09:00 Gabapentin (Neurontin) 100 mg TID PO Last administered on 04/25/19at 08:30; Ad min Dose 100 MG; Start 04/22/19 at 09:00 Lisinopril (Zestril) 20 mg DAILY PO Last administered on 04/22/19at 08:59; Admin Dose 20 MG; Start 04/22/19 at 09:00; Status Hold Oxcarbazepine (Trileptal) 300 mg BID PO Last administered on 04/25/19 08:30; Admin Dose 300 MG; Start 04/22/19 at 09:00 Miscellaneous Information (Pending Santyl Order For Wound Care) This patient mario... PRN PRN XX WOUND CARE; Start 04/22/19 at 02:00 Hydralazine HCl (Apresoline) 25 mg Q8 PO Last administered on 04/25/19 05:52; Admin Dose 25 MG; Start 04/22/19 at 14:00 Amlodipine Besylate (Norvasc) 5 mg DAILY PO Last administered on 04/25/19 08:30; Admin Dose 5 MG; Start 04/22/19 at 13:00 Sodium Chloride 1,000 ml @ 100 mls/hr Q10H IV Last administered on 04/25/19 12:43; Admin Dose 100 MLS/HR; Start 04/22/19 at 14:00 Acetaminophen (Tylenol Tab) 650 mg Q6H PRN PO MILD PAIN(1-3)OR ELEVATED TEMP Last administered on 04/23/19 20:44; Admin Dose 650 MG; Start 04/22/19 at 21:00 Trazodone HCl (Desyrel) 25 mg HS PO Last administered on 04/24/19 21:25; Admin Dose 25 MG; Start 04/23/19 at 21:00 Morphine Sulfate (morphine) 2 mg Q4H PRN IV SEVERE PAIN LEVEL 7-10 Last administered on 04/22/19 21:45; Admin Dose 2 MG; Start 04/22/19 at 21:30 Ondansetron HCl (Zofran Inj) 4 mg Q4H PRN IV NAUSEA AND/OR VOMITING Last administered on 04/22/19 21:45; Admin Dose 4 MG; Start 04/22/19 at 22:00 Insulin Aspart (Novolog Insulin Pen) 10 unit WITH MEALS SC Last administered on 04/25/19 12:43; Admin Dose 10 UNIT; Start 04/23/19 at 11:30 Insulin Glargine (Lantus) 30 units WITH BREAKFAST SC Last administered on 04/25/19 08:34; Admin Dose 30 UNITS; Start 04/24/19 at 08:00 Lisinopril (Zestril) 10 mg DAILY PO Last administered on 04/25/19 08:30; Admin Dose 10 MG; Start 04/23/19 at 09:30 Heparin Sodium (Porcine) (Heparin (5000 Units/1ml)) 5,000 unit BID SC Last administered on 04/25/19at 08:31; Admin Dose 5,000 UNIT; Start 04/23/19 at 21:00 Sodium Hypochlorite (Dakins Diluted (40)) 1 applic DAILY TP Last administered on 04/24/19at 10:53; Admin Dose 1 APPLIC; Start 04/24/19 at 09:00 IV Flush (NS 10 ml) 10 ml PRN PRN IV per protocol; Start 04/23/19 at 18:00 Insulin Aspart (Novolog Insulin Pen) NOVOLOG *MILD* ALGORITHM WITH MEALS BEDTIME SC Last administered on 04/25/19 08:33; Admin Dose 2 UNIT; Start 04/23/19 at 21:30 Clindamycin HCl/ Dextrose 50 ml @ 50 mls/hr Q8 IVPB Last administered on 04/25/19 05:52; Admin Dose 50 MLS/HR; Start 04/24/19 at 22:00 Duloxetine HCl (Cymbalta) 20 mg BID PO Last administered on 04/25/19at 08:30; Admin Dose 20 MG; Start 04/24/19 at 21:00 Guaifenesin/ Dextromethorphan (Robitussin Dm Liquid Cup) 5 ml Q4H PRN PO cough Last administered on 04/25/19at 00:56; Admin Dose 5 ML; Start 04/25/19 at 00:30 Alteplase, Recombinant (Cathflo (Activase)) 2 mg MAY REPEAT X1 PRN CATHETER IF CATHETER REMAINS OCCULUDED; Start 04/25/19 at 05:30 SUZIE CESPEDES V. [employer] SCIENCE LIAISON Apr 25, 2019 13:56
[2019-04-25 14:06] VITALS: BP 76/146; PULSE 81; RESP 18
[2019-04-25] MEDS: DAKINS 0.0125%(1/40) 473 ML SOLUTION TP SCH (17:06)
[2019-04-25 19:48] VITALS: BP 144/77; PULSE 86; RESP 20
[2019-04-25] MEDS: traZODone 50 MG TAB PO SCH (20:30)
[2019-04-25 22:15] VITALS: BP 133/69; PULSE 72
--- NOTE | 2019-04-25 23:14 | CONS ---
Assessment/Plan Assessment/Plan Assessment/Plan (Daily) Left foot gas gangrene - excisional debridement (DOS: 04/22/19) Left lower extremity cellulitis Left foot diabetic foot ulcer DM2 with peripheral neuropathy Hx of right foot osteomyelitis Depression HTN CKD Plan Patient tolerated surgical debridement well 04/22/19. Recommend daily irrigation of dakins, application of betadine 4x4 gauze with kerlix and rosetta wrap. Appreciate ID recommendations for antibiotic therapy. Patient will likely need correction IV PICC line abx. Wound cultures showing: staph coag neg, diptheroids, strep group B. Intra op bone pathology: Fragments of cancellous articular bone with thickened trabeculae. Gangrenous necrosis of attached and separate fragments of fibrocollagenous tissue. Definite osteomyelitis is not microscopically identified. There is no evidence of malignancy. Reviewed MRI findings and concern for osteomyelitis of left foot. Patient would likely benefit from HBO therapy in the outpatient setting. Patient has exhibited signs of distress and depression. Non weight bearing to left lower extremity. PT/OT evaluation appreciated. Non invasive arterial studies showed: increased velocities in the left posterior tibial artery. Monophasic waveforms in the left posterior tibial and dorsalis pedis. Patient would benefit from vascular surgery evaluation. Consultation Date/Type/Reason Admit Date/Time Apr 21, 2019 at 22:15 Initial Consult Date Date/Time of Note DATE: 04/25/19 TIME: 23:14 24 HR Interval Summary Free Text/Dictation No acute events overnight Exam/Review of Systems Exam Vitals Vital Signs Date Temp Pulse Resp B/P (MAP) Pulse Ox O2 O2 Flow FiO2 Time Delivery Rate 04/25/19 72 133/69 22:15 (90) 04/25/19 98.0 20 99 19:48 04/25/19 Room Air 14:06 Intake and Output 04/24/19 04/24/19 04/25/19 1515:00 23:00 07:00 IntakeIntake Total 1710 ml 1010 ml 500 ml BalanceBalance 1710 ml 1010 ml 500 ml Exam 6 x 3 x 1.5cm where hallux and 2nd metatarsal bone could be probed. Fibrogranular wound bed. No active purulent drainage appreciated. Wound communicates with plantar hallux ulceration which measures 2 x 1 x 1.8cm There is pain on palpation to the plantar aspect of the wound Residual erythema appreciated to surrounding ulceration site Absent protective sensations Pedal hairs present No sign of gangrene appreciated at this time to digits or surgical site CFT less than 3 seconds Results Result Diagram: 04/25/19 0843 04/25/19 0843 Results 24hrs Laboratory Tests Test 04/25/19 08:20 04/25/19 08:41 04/25/19 08:43 04/25/19 12:27 Bedside Glucose 190 118 Iron Level 41 Total Iron Binding 256 Capacity Percent Iron 16 L Saturation White Blood Count 8.9 Red Blood Count 3.75 L Hemoglobin 9.4 L Hematocrit 28.9 L Mean Corpuscular 77.1 L Volume Mean Corpuscular 25.1 L Hemoglobin Mean Corpuscular 32.5 Hemoglobin Concent Red Cell 13.0 Distribution Width Platelet Count 401 Mean Platelet Volume 10.3 Immature 0.900 H Granulocytes % Neutrophils % 74.4 Lymphocytes % 13.1 L Monocytes % 7.9 Eosinophils % 3.2 Basophils % 0.5 Nucleated Red Blood 0.0 Cells % Immature 0.080 H Granulocytes # Neutrophils # 6.6 Lymphocytes # 1.2 Monocytes # 0.7 Eosinophils # 0.3 Basophils # 0.0 Nucleated Red Blood 0.0 Cells # Sodium Level 137 Potassium Level 4.6 Chloride Level 105 Carbon Dioxide Level 25 Anion Gap 7 Blood Urea Nitrogen 15 Creatinine 0.94 Est Glomerular > 60 Filtrat Rate mL/min Glucose Level 204 Calcium Level 8.8 Test 04/25/19 16:57 04/25/19 19:23 Bedside Glucose 85 Erythrocyte 110 H Sedimentation Rate C-Reactive Protein 7.9 H Procalcitonin 0.13 H Medications Medication Current Medications Diagnostic Test (Pha) (Accu-Chek) 1 ea 02 XX Last administered on 04/23/19at 02:08; Admin Dose 1 EA; Start 04/22/19 at 02:00 Miscellaneous Information 1 ea NOTE XX ; Start 04/22/19 at 01:30 Glucose (Glutose) 15 gm Q15M PRN PO DECREASED GLUCOSE; Start 04/22/19 at 01:30 Glucose (Glutose) 22.5 gm Q15M PRN PO DECREASED GLUCOSE; Start 04/22/19 at 01:30 Dextrose (D50w Syringe) 25 ml Q15M PRN IV DECREASED GLUCOSE; Start 04/22/19 at 01:30 Dextrose (D50w Syringe) 50 ml Q15M PRN IV DECREASED GLUCOSE; Start 04/22/19 at 01:30 Glucagon (Glucagen) 1 mg Q15M PRN IM DECREASED GLUCOSE; Start 04/22/19 at 01:30 Glucose (Glutose) 15 gm Q15M PRN BUCCAL DECREASED GLUCOSE; Start 04/22/19 at 01:30 Buspirone HCl (Buspar) 10 mg DAILY PO Last administered on 04/25/19 08:30; Adm in Dose 10 MG; Start 04/22/19 at 09:00 Gabapentin (Neurontin) 100 mg TID PO Last administered on 04/25/19 20:30; Admin Dose 100 MG; Start 04/22/19 at 09:00 Lisinopril (Zestril) 20 mg DAILY PO Last administered on 04/22/19 08:59; Admin Dose 20 MG; Start 04/22/19 at 09:00; Status Hold Oxcarbazepine (Trileptal) 300 mg BID PO Last administered on 04/25/19 20:30; Admin Dose 300 MG; Start 04/22/19 at 09:00 [facility] This patient mario... PRN PRN XX WOUND CARE; Start 04/22/19 at 02:00 Hydralazine HCl (Apresoline) 25 mg Q8 PO Last administered on 04/25/19 22:19; Admin Dose 25 MG; Start 04/22/19 at 14:00 Acetaminophen (Tylenol Tab) 650 mg Q6H PRN PO MILD PAIN(1-3)OR ELEVATED TEMP Last administered on 04/23/19 20:44; Admin Dose 650 MG; Start 04/22/19 at 21:00 Trazodone HCl (Desyrel) 25 mg HS PO Last administered on 04/25/19 20:30; Admin Dose 25 MG; Start 04/23/19 at 21:00 Morphine Sulfate (morphine) 2 mg Q4H PRN IV SEVERE PAIN LEVEL 7-10 Last administered on 04/22/19 21:45; Admin Dose 2 MG; Start 04/22/19 at 21:30 Ondansetron HCl (Zofran Inj) 4 mg Q4H PRN IV NAUSEA AND/OR VOMITING Last administered on 04/22/19 21:45; Admin Dose 4 MG; Start 04/22/19 at 22:00 Insulin Aspart (Novolog Insulin Pen) 10 unit WITH MEALS SC Last administered on 04/25/19 17:04; Admin Dose 10 UNIT; Start 04/23/19 at 11:30 Insulin Glargine (Lantus) 30 units WITH BREAKFAST SC Last administered on 04/25/19 08:34; Admin Dose 30 UNITS; Start 04/24/19 at 08:00 Lisinopril (Zestril) 10 mg DAILY PO Last administered on 04/25/19 08:30; Admin Dose 10 MG; Start 04/23/19 at 09:30 Heparin Sodium (Porcine) (Heparin (5000 Units/1ml)) 5,000 unit BID SC Last administered on 04/25/19 20:28; Admin Dose 5,000 UNIT; Start 04/23/19 at 21:00 Sodium Hypochlorite (Dakins Diluted (40)) 1 applic DAILY TP Last administered on 04/25/19 17:06; Admin Dose 1 APPLIC; Start 04/24/19 at 09:00 IV Flush (NS 10 ml) 10 ml PRN PRN IV per protocol; Start 04/23/19 at 18:00 Insulin Aspart (Novolog Insulin Pen) NOVOLOG *MILD* ALGORITHM WITH MEALS BEDTIME SC Last administered on 04/25/19 20:28; Admin Dose 1 UNIT; Start 04/23/19 at 21:30 Clindamycin HCl/ Dextrose 50 ml @ 50 mls/hr Q8 IVPB Last administered on 04/25/19 22:20; Admin Dose 50 MLS/HR; Start 04/24/19 at 22:00 Duloxetine HCl (Cymbalta) 20 mg BID PO Last administered on 04/25/19 20:30; Admin Dose 20 MG; Start 04/24/19 at 21:00 Guaifenesin/ Dextromethorphan (Robitussin Dm Liquid Cup) 5 ml Q4H PRN PO cough Last administered on 04/25/19 00:56; Admin Dose 5 ML; Start 04/25/19 at 00:30 Alteplase, Recombinant (Cathflo (Activase)) 2 mg MAY REPEAT X1 PRN CATHETER IF CATHETER REMAINS OCCULUDED; Start 04/25/19 at 05:30 Amlodipine Besylate (Norvasc) 10 mg DAILY PO ; Start 04/26/19 at 09:00 VINICIUS ARRIETA DPM Apr 25, 2019 23:14
[2019-04-26 02:00] VITALS: BP 140/82; PULSE 82; RESP 19
[2019-04-26] MEDS: ACCU-CHEK XX SCH (02:07)
[2019-04-26 05:26] VITALS: BP 149/87
[2019-04-26] MEDS: CLINDAMYCIN 900 MG/D5W (PMX) 50 ML IVPB SCH ×3 (05:29→22:00)
[2019-04-26 08:00] VITALS: BP 150/96; PULSE 86; RESP 19
[2019-04-26] MEDS: OXCARBAZEPINE 300 MG TAB PO SCH ×2 (08:15→21:06)
[2019-04-26] MEDS: DULOXETINE 20 MG CAP DR PO SCH ×2 (08:15→21:06)
[2019-04-26] MEDS: BUSPIRONE 10 MG TAB PO SCH (08:15)
[2019-04-26] MEDS: GABAPENTIN 100 MG CAP PO SCH ×3 (08:15→21:06)
[2019-04-26] MEDS: INSULIN ASPART [NOVOLOG] 3 ML PEN SC SCH ×7 (08:17→21:00)
[2019-04-26] MEDS: INSULIN GLARGINE [LANTus] (100 UNITS/ML) SYG SC SCH (08:18)
[2019-04-26] MEDS: HEPARIN 5,000 UNIT/1 ML VIAL SC SCH ×2 (08:19→21:07)
[2019-04-26] MEDS: LISINOPRIL 10 MG TAB PO SCH (08:27)
[2019-04-26] MEDS: AMLODIPINE 5 MG TAB PO SCH (08:27)
[2019-04-26] MEDS: DAKINS 0.0125%(1/40) 473 ML SOLUTION TP SCH (08:29)
--- NOTE | 2019-04-26 11:17 | PN ---
Date/Time of Note Date/Time of Note DATE: 04/26/19 TIME: 11:11 Assessment/Plan VTE Prophylaxis Risk score (from Nsg)>0 risk: 3 SCD applied (from Ns): No SCD contraindicated: other Pharmacological prophylaxis: heparin Lines/Catheters IV Catheter Type (from Nrs): PICC Line Central line still needed: Yes Assessment/Plan Hospital Course SUBJECTIVE: No acute overnight episodes. OBJECTIVE: Vital signs-see below PHYSICAL EXAM: Constitutional: Adequately built,not in acute distress. HEENT: Head atraumatic and normocephalic. Eyes: Extraocular muscles intact. An icteric sclerae. Pupils equal bilaterally, reactive to light. NECK: Supple without lymph node. CHEST: Clear and good breath sounds equally. No wheezing. No rhonchi. HEART: S1, S2. Regular rate and rhythm. ABDOMEN: Soft/non tender with no rebound tenderness. Bowel sounds were present. EXTREMITIES:L foot bandaged. NEUROLOGIC: Alert and oriented x3. No focal deficit. No sensory deficit. PSYCHOSOCIAL: No signs of depression. INTEGUMENTARY: No open wounds. ASSESSMENT AND PLAN:43 yo M w/dm2,rt foot om, admitted with left big toe ulceration and foot cellulitis.. Sepsis Source:left foot ulceration w/gas gangrene -clinically resolved -CS reviewed-consider deescalation of abx Left foot gas gangrene/cellulitis -Appreciate excellent care of . s/p emergent I&D w/excisional debridement in [place] 04/23/19-> recommended antimicrobial continuation with outpatient follow-up for possible HBO therapy. -Cont. abx ,likely can be deescalated Left hallux osteomyelitis -Continue IV antimicrobials. Anticipate 6 weeks. LACEY on CKD -Renal fxn back to normal after fluid challenge. -Tolerating MCKENNA inhibitors. -monitor DMII -Stable -Basal/bolus insulin-adjust for optimal control to allow wound healing -Carbohydrate controlled diet. Essential hypertension -stable.cont.acei/ hydralazine/amlodipine Anemia likely 2/2 inflammation -HH stable -obtain iro panel and treat accordingly. dvt ppx:heparin Dispo: DC planning HHS w/6 wks IV abx (pending ID recs),APC f/u w/,possible HBO therapy. patient was seen in collaboration with Result Diagram: 04/25/19 0843 04/25/19 0843 Results 24hrs Laboratory Tests Test 04/25/19 12:27 04/25/19 16:57 04/25/19 19:23 04/26/19 02:06 Bedside Glucose 118 85 222 H Erythrocyte 110 H Sedimentation Rate C-Reactive Protein 7.9 H Procalcitonin 0.13 H Test 04/26/19 08:13 Bedside Glucose 180 Exam/Review of Systems Exam Vitals Vital Signs Date Temp Pulse Resp B/P (MAP) Pulse Ox O2 O2 Flow FiO2 Time Delivery Rate 04/26/19 98.7 86 19 150/96 96 Room Air 08:00 (114) Intake and Output 04/25/19 04/25/19 04/26/19 1515:00 23:00 07:00 IntakeIntake Total 880 ml 450 ml 530 ml OutputOutput Total 1000 ml 1200 ml 900 ml BalanceBalance -120 ml -750 ml -370 ml Results Results 24hrs Laboratory Tests Test 04/25/19 12:27 04/25/19 16:57 04/25/19 19:23 04/26/19 02:06 Bedside Glucose 118 85 222 H Erythrocyte 110 H Sedimentation Rate C-Reactive Protein 7.9 H Procalcitonin 0.13 H Test 04/26/19 08:13 Bedside Glucose 180 Medications Medication Current Medications Diagnostic Test (Pha) (Accu-Chek) 1 ea 02 XX Last administered on 04/26/19at 02:07; Admin Dose 1 EA; Start 04/22/19 at 02:00 Miscellaneous Information 1 ea NOTE XX ; Start 04/22/19 at 01:30 Glucose (Glutose) 15 gm Q15M PRN PO DECREASED GLUCOSE; Start 04/22/19 at 01:30 Glucose (Glutose) 22.5 gm Q15M PRN PO DECREASED GLUCOSE; Start 04/22/19 at 01:30 Dextrose (D50w Syringe) 25 ml Q15M PRN IV DECREASED GLUCOSE; Start 04/22/19 at 01:30 Dextrose (D50w Syringe) 50 ml Q15M PRN IV DECREASED GLUCOSE; Start 04/22/19 at 01:30 Glucagon (Glucagen) 1 mg Q15M PRN IM DECREASED GLUCOSE; Start 04/22/19 at 01:30 Glucose (Glutose) 15 gm Q15M PRN BUCCAL DECREASED GLUCOSE; Start 04/22/19 at 01:30 Buspirone HCl (Buspar) 10 mg DAILY PO Last administered on 04/26/19 08:15; Admin Dose 10 MG; Start 04/22/19 at 09:00 Gabapentin (Neurontin) 100 mg TID PO Last administered on 04/26/19 08:15; Admin Dose 100 MG; Start 04/22/19 at 09:00 Lisinopril (Zestril) 20 mg DAILY PO Last administered on 04/22/19 08:59; Admin Dose 20 MG; Start 04/22/19 at 09:00; Status Hold Oxcarbazepine (Trileptal) 300 mg BID PO Last administered on 04/26/19 08:15; Admin Dose 300 MG; Start 04/22/19 at 09:00 Miscellaneous Information ([facility]) This patient mario... PRN PRN XX WOUND CARE; Start 04/22/19 at 02:00 Hydralazine HCl (Apresoline) 25 mg Q8 PO Last administered on 04/26/19 05:27; Admin Dose 25 MG; Start 04/22/19 at 14:00 Acetaminophen (Tylenol Tab) 650 mg Q6H PRN PO MILD PAIN(1-3)OR ELEVATED TEMP Last administered on 04/23/19 20:44; Admin Dose 650 MG; Start 04/22/19 at 21:00 Trazodone HCl (Desyrel) 25 mg HS PO Last administered on 04/25/19 20:30; Admin Dose 25 MG; Start 04/23/19 at 21:00 Morphine Sulfate (morphine) 2 mg Q4H PRN IV SEVERE PAIN LEVEL 7-10 Last administered on 04/22/19 21:45; Admin Dose 2 MG; Start 04/22/19 at 21:30 Ondansetron HCl (Zofran Inj) 4 mg Q4H PRN IV NAUSEA AND/OR VOMITING Last administered on 04/22/19 21:45; Admin Dose 4 MG; Start 04/22/19 at 22:00 Insulin Aspart (Novolog Insulin Pen) 10 unit WITH MEALS SC Last administered on 04/26/19 08:17; Admin Dose 10 UNIT; Start 04/23/19 at 11:30 Insulin Glargine (Lantus) 30 units WITH BREAKFAST SC Last administered on 04/26/19 08:18; Admin Dose 30 UNITS; Start 04/24/19 at 08:00 Lisinopril (Zestril) 10 mg DAILY PO Last administered on 04/26/19 08:27; Admin Dose 10 MG; Start 04/23/19 at 09:30 Heparin Sodium (Porcine) (Heparin (5000 Units/1ml)) 5,000 unit BID SC Last administered on 04/26/19 08:19; Admin Dose 5,000 UNIT; Start 04/23/19 at 21:00 Sodium Hypochlorite (Dakins Diluted (40)) 1 applic DAILY TP Last administered on 04/26/19 08:29; Admin Dose 1 APPLIC; Start 04/24/19 at 09:00 IV Flush (NS 10 ml) 10 ml PRN PRN IV per protocol; Start 04/23/19 at 18:00 Insulin Aspart (Novolog Insulin Pen) NOVOLOG *MILD* ALGORITHM WITH MEALS BEDTIME SC Last administered on 04/26/19 08:17; Admin Dose 1 UNIT; Start 04/23/19 at 21:30 Clindamycin HCl/ Dextrose 50 ml @ 50 mls/hr Q8 IVPB Last administered on 04/26/19 05:29; Admin Dose 50 MLS/HR; Start 04/24/19 at 22:00 Duloxetine HCl (Cymbalta) 20 mg BID PO Last administered on 04/26/19 08:15; Admin Dose 20 MG; Start 04/24/19 at 21:00 Guaifenesin/ Dextromethorphan (Robitussin Dm Liquid Cup) 5 ml Q4H PRN PO cough Last administered on 04/25/19 00:56; Admin Dose 5 ML; Start 04/25/19 at 00:30 Alteplase, Recombinant (Cathflo (Activase)) 2 mg MAY REPEAT X1 PRN CATHETER IF CATHETER REMAINS OCCULUDED; Start 04/25/19 at 05:30 Amlodipine Besylate (Norvasc) 10 mg DAILY PO Last administered on 04/26/19 08:27; Admin Dose 10 MG; Start 04/26/19 at 09:00 SUZIE CESPEDES NP Apr 26, 2019 11:17
--- NOTE | 2019-04-26 12:11 | CONS ---
Assessment/Plan Assessment/Plan Hospital Course (Demo Recall) No acute changes afebrile NAD Microbiology: Wound culture growing strep, MSSA, corynebacterium and coag negative staph Chest x-ray on admission revealed no evidence for acute cardiopulmonary process Antimicrobials: Clindamycin Allergy: Vanco Physical examination: Obese well-developed middle-aged man in no distress head atraumatic normocephalic neck is supple chest rise symmetrical breath sounds diminished to bases heart S1-S2 abdomen soft bowel sounds present extremities with left foot dressing Assessment: 1. S/p sepsis, present on admission 2. Left foot osteomyelitis/gas gangrene status post I&D 3. Diabetes with peripheral neuropathy 4. Obesity 5. Acute kidney insufficiency Plan: Stable, ok dc on IV Clindamycin or IV Dapto 6 mg/kg IV daily for 6 weeks when cleared by podiatry Consultation Date/Type/Reason Admit Date/Time Apr 21, 2019 at 22:15 Initial Consult Date Type of Consult id Date/Time of Note DATE: 04/26/19 TIME: 12:08 Exam/Review of Systems Exam Vitals Vital Signs Date Temp Pulse Resp B/P (MAP) Pulse Ox O2 O2 Flow FiO2 Time Delivery Rate 04/26/19 98.7 86 19 150/96 96 Room Air 08:00 (114) Intake and Output 04/25/19 04/25/19 04/26/19 1515:00 23:00 07:00 IntakeIntake Total 880 ml 450 ml 530 ml OutputOutput Total 1000 ml 1200 ml 900 ml BalanceBalance -120 ml -750 ml -370 ml Results Result Diagram: 04/25/19 0843 04/25/19 0843 Results 24hrs Laboratory Tests Test 04/25/19 12:27 04/25/19 16:57 04/25/19 19:23 04/26/19 02:06 Bedside Glucose 118 85 222 H Erythrocyte 110 H Sedimentation Rate C-Reactive Protein 7.9 H Procalcitonin 0.13 H Test 04/26/19 08:13 Bedside Glucose 180 Medications Medication Current Medications Diagnostic Test (Pha) (Accu-Chek) 1 ea 02 XX Last administered on 04/26/19at 02:07; Admin Dose 1 EA; Start 04/22/19 at 02:00 Miscellaneous Information 1 ea NOTE XX ; Start 04/22/19 at 01:30 Glucose (Glutose) 15 gm Q15M PRN PO DECREASED GLUCOSE; Start 04/22/19 at 01:30 Glucose (Glutose) 22.5 gm Q15M PRN PO DECREASED GLUCOSE; Start 04/22/19 at 01:30 Dextrose (D50w Syringe) 25 ml Q15M PRN IV DECREASED GLUCOSE; Start 04/22/19 at 01:30 Dextrose (D50w Syringe) 50 ml Q15M PRN IV DECREASED GLUCOSE; Start 04/22/19 at 01:30 Glucagon (Glucagen) 1 mg Q15M PRN IM DECREASED GLUCOSE; Start 04/22/19 at 01:30 Glucose (Glutose) 15 gm Q15M PRN BUCCAL DECREASED GLUCOSE; Start 04/22/19 at 01:30 Buspirone HCl (Buspar) 10 mg DAILY PO Last administered on 04/26/19at 08:15; Admin Dose 10 MG; Start 04/22/19 at 09:00 Gabapentin (Neurontin) 100 mg TID PO Last administered on 04/26/19 08:15; Admin Dose 100 MG; Start 04/22/19 at 09:00 Lisinopril (Zestril) 20 mg DAILY PO Last administered on 04/22/19at 08:59; Admin Dose 20 MG; Start 04/22/19 at 09:00; Status Hold Oxcarbazepine (Trileptal) 300 mg BID PO Last administered on 04/26/19 08:15; Admin Dose 300 MG; Start 04/22/19 at 09:00 Miscellaneous Information (Pending [facility] Order For Wound Care) This patient mario... PRN PRN XX WOUND CARE; Start 04/22/19 at 02:00 Hydralazine HCl (Apresoline) 25 mg Q8 PO Last administered on 04/26/19at 05:27; Admin Dose 25 MG; Start 04/22/19 at 14:00 Acetaminophen (Tylenol Tab) 650 mg Q6H PRN PO MILD PAIN(1-3)OR ELEVATED TEMP Last administered on 04/23/19at 20:44; Admin Dose 650 MG; Start 04/22/19 at 21:00 Trazodone HCl (Desyrel) 25 mg HS PO Last administered on 04/25/19at 20:30; Admin Dose 25 MG; Start 04/23/19 at 21:00 Morphine Sulfate (morphine) 2 mg Q4H PRN IV SEVERE PAIN LEVEL 7-10 Last administered on 04/22/19 21:45; Admin Dose 2 MG; Start 04/22/19 at 21:30 Ondansetron HCl (Zofran Inj) 4 mg Q4H PRN IV NAUSEA AND/OR VOMITING Last administered on 04/22/19 21:45; Admin Dose 4 MG; Start 04/22/19 at 22:00 Insulin Aspart (Novolog Insulin Pen) 10 unit WITH MEALS SC Last administered on 04/26/19 08:17; Admin Dose 10 UNIT; Start 04/23/19 at 11:30 Insulin Glargine (Lantus) 30 units WITH BREAKFAST SC Last administered on 04/26/19 08:18; Admin Dose 30 UNITS; Start 04/24/19 at 08:00 Lisinopril (Zestril) 10 mg DAILY PO Last administered on 04/26/19 08:27; Admin Dose 10 MG; Start 04/23/19 at 09:30 Heparin Sodium (Porcine) (Heparin (5000 Units/1ml)) 5,000 unit BID SC Last administered on 04/26/19 08:19; Admin Dose 5,000 UNIT; Start 04/23/19 at 21:00 Sodium Hypochlorite (Dakins Diluted ()) 1 applic DAILY TP Last administered on 04/26/19 08:29; Admin Dose 1 APPLIC; Start 04/24/19 at 09:00 IV Flush (NS 10 ml) 10 ml PRN PRN IV per protocol; Start 04/23/19 at 18:00 Insulin Aspart (Novolog Insulin Pen) NOVOLOG *MILD* ALGORITHM WITH MEALS BEDTIME SC Last administered on 04/26/19 08:17; Admin Dose 1 UNIT; Start 04/23/19 at 21:30 Clindamycin HCl/ Dextrose 50 ml @ 50 mls/hr Q8 IVPB Last administered on 04/26/19 05:29; Admin Dose 50 MLS/HR; Start 04/24/19 at 22:00 Duloxetine HCl (Cymbalta) 20 mg BID PO Last administered on 04/26/19 08:15; Admin Dose 20 MG; Start 04/24/19 at 21:00 Guaifenesin/ Dextromethorphan (Robitussin Dm Liquid Cup) 5 ml Q4H PRN PO cough Last administered on 04/25/19at 00:56; Admin Dose 5 ML; Start 04/25/19 at 00:30 Alteplase, Recombinant (Cathflo (Activase)) 2 mg MAY REPEAT X1 PRN CATHETER IF CATHETER REMAINS OCCULUDED; Start 04/25/19 at 05:30 Amlodipine Besylate (Norvasc) 10 mg DAILY PO Last administered on 04/26/19at 08:27; Admin Dose 10 MG; Start 04/26/19 at 09:00 SUREKHA LINDA NP Apr 26, 2019 12:11
[2019-04-26 14:34] VITALS: BP 126/76; PULSE 88; RESP 18
[2019-04-26 20:44] VITALS: BP 170/92; PULSE 75; RESP 18
[2019-04-26] MEDS: traZODone 50 MG TAB PO SCH (21:10)
[2019-04-26 23:35] VITALS: BP 103/62; PULSE 72
[2019-04-27] MEDS: CLINDAMYCIN 900 MG/D5W (PMX) 50 ML IVPB SCH ×4 (00:26→21:21)
--- NOTE | 2019-04-27 01:59 | CONS ---
DATE OF ADMISSION: 04/21/2019 DATE OF CONSULTATION: 04/26/2019 SUBJECTIVE FINDINGS: The patient is being followed for the left foot ulceration, status post debride ment for gas gangrene, culture results polymicrobial with a coag-negative staph, corynebacterium, Str ep agalactiae group B and Staphylococcus aureus, currently on clindamycin. Denies any fever, nausea or vomiting. OBJECTIVE FINDINGS: VITAL SIGNS: Temperature 98.2, pulse 88, respiratory 18, blood pressure is 126/76, pulse ox is 100. EXTREMITIES: The patient's left foot with ulceration that probes to tendon. There is an area of cya nosis, dorsal aspect, questionable tissue viability. Pedal pulses palpable. LABORATORIES: WBC 8.9, hemoglobin 9.4, hematocrit 28.9, platelets 401, sed rate is 110. IMAGING: Foot MRI with soft tissue swelling and mild bone marrow edema. Findings may be suggestive of early septic arthritis or osteomyelitis. Lab cultures reviewed. ASSESSMENT: 1. Left foot ulceration, status post debridement with polymicrobial growth. 2. Suspect early osteomyelitis. 3. Acute kidney injury, on chronic kidney disease. 4. Diabetes type 2. PLAN: Wound irrigated. Continue long-term antibiotics. May benefit from outpatient hyperbaric oxyg en. Also, once clear demarcation of necrotic tissue, likely to require staged debridement. Further recommendations and wound closure when appropriate. Recommend tight glycemic control. Dictated By: MONIKA FERNANDEZ DPM RB/NTS Conf#: [id number] DID#: [id number] CC: TANIA SESAY MD;*End*
[2019-04-27] MEDS: ACCU-CHEK XX SCH (02:00)
[2019-04-27 02:27] VITALS: BP 145/84; PULSE 83; RESP 18
[2019-04-27] MEDS: INSULIN GLARGINE [LANTus] (100 UNITS/ML) SYG SC SCH (08:06)
[2019-04-27] MEDS: INSULIN ASPART [NOVOLOG] 3 ML PEN SC SCH ×7 (08:07→20:29)
[2019-04-27] MEDS: HEPARIN 5,000 UNIT/1 ML VIAL SC SCH ×2 (08:08→20:32)
[2019-04-27] MEDS: AMLODIPINE 5 MG TAB PO SCH (08:09)
[2019-04-27] MEDS: GABAPENTIN 100 MG CAP PO SCH ×3 (08:09→20:31)
[2019-04-27] MEDS: BUSPIRONE 10 MG TAB PO SCH (08:09)
[2019-04-27] MEDS: DULOXETINE 20 MG CAP DR PO SCH ×2 (08:09→20:31)
[2019-04-27] MEDS: OXCARBAZEPINE 300 MG TAB PO SCH ×2 (08:09→20:31)
[2019-04-27] MEDS: LISINOPRIL 10 MG TAB PO SCH (08:10)
[2019-04-27] MEDS: DAKINS 0.0125%(1/40) 473 ML SOLUTION TP SCH (08:11)
[2019-04-27 08:25] VITALS: BP 145/87; PULSE 79; RESP 18
--- NOTE | 2019-04-27 13:40 | PN ---
Date/Time of Note Date/Time of Note DATE: 04/27/19 TIME: 13:37 Assessment/Plan VTE Prophylaxis Risk score (from Nsg)>0 risk: 4 SCD applied (from Ns): No SCD contraindicated: other Pharmacological prophylaxis: heparin Lines/Catheters IV Catheter Type (from Nrs): PICC Line Central line still needed: Yes Assessment/Plan Hospital Course SUBJECTIVE: No acute overnight episodes. OBJECTIVE: Vital signs-see below PHYSICAL EXAM: Constitutional: Adequately built,not in acute distress. HEENT: Head atraumatic and normocephalic. Eyes: Extraocular muscles intact. An icteric sclerae. Pupils equal bilaterally, reactive to light. NECK: Supple without lymph node. CHEST: Clear and good breath sounds equally. No wheezing. No rhonchi. HEART: S1, S2. Regular rate and rhythm. ABDOMEN: Soft/non tender with no rebound tenderness. Bowel sounds were present. EXTREMITIES:L foot bandaged. NEUROLOGIC: Alert and oriented x3. No focal deficit. No sensory deficit. PSYCHOSOCIAL: No signs of depression. INTEGUMENTARY: No open wounds. ASSESSMENT AND PLAN:43 yo M w/dm2,rt foot om, admitted with left big toe ulceration and foot cellulitis.. Sepsis Source:left foot ulceration w/gas gangrene -clinically resolved -CS reviewed-consider deescalation of abx Left foot gas gangrene/cellulitis -Appreciate excellent care of . s/p emergent I&D w/excisional debridement in OR 04/23/19-> recommended antimicrobial continuation with outpatient follow-up for possible HBO therapy. -Cont. abx Left hallux osteomyelitis -Continue IV antimicrobials. Anticipate 6 weeks. LACEY on CKD -Renal fxn back to normal after fluid challenge. -Tolerating MCKENNA inhibitors. -monitor DMII -Stable -Basal/bolus insulin-adjust for optimal control to allow wound healing -Carbohydrate controlled diet. Essential hypertension -stable.cont.acei/ hydralazine/amlodipine Anemia likely 2/2 inflammation -HH stable -monitor dvt ppx:heparin Dispo: DC planning HHS w/6 wks IV abx (pending ID recs),APC f/u w/,possible HBO therapy. patient was seen in collaboration with Result Diagram: 04/25/1943 04/25/19 0843 Results 24hrs Laboratory Tests Test 04/26/19 19:30 04/26/19 21:03 04/27/19 08:04 04/27/19 10:46 Erythrocyte 108 H 113 H Sedimentation Rate C-Reactive Protein 6.9 H 6.1 H Procalcitonin 0.11 H 0.09 Bedside Glucose 129 224 H Test 04/27/19 12:11 Bedside Glucose 119 Exam/Review of Systems Exam Vitals Vital Signs Date Temp Pulse Resp B/P (MAP) Pulse Ox O2 O2 Flow FiO2 Time Delivery Rate 04/27/19 97.8 79 18 145/87 96 08:25 (106) 04/26/19 Room Air 08:00 Intake and Output 04/26/19 04/26/19 04/27/19 1515:00 23:00 07:00 IntakeIntake Total 50 ml 990 ml 800 ml OutputOutput Total 1350 ml 41666 ml BalanceBalance 50 ml -360 ml -9650 ml Results Results 24hrs Laboratory Tests Test 04/26/19 19:30 04/26/19 21:03 04/27/19 08:04 04/27/19 10:46 Erythrocyte 108 H 113 H Sedimentation Rate C-Reactive Protein 6.9 H 6.1 H Procalcitonin 0.11 H 0.09 Bedside Glucose 129 224 H Test 04/27/19 12:11 Bedside Glucose 119 Medications Medication Current Medications Diagnostic Test (Pha) (Accu-Chek) 1 ea 02 XX Last administered on 04/26/19at 02:07; Admin Dose 1 EA; Start 04/22/19 at 02:00 Miscellaneous Information 1 ea NOTE XX ; Start 04/22/19 at 01:30 Glucose (Glutose) 15 gm Q15M PRN PO DECREASED GLUCOSE; Start 04/22/19 at 01:30 Glucose (Glutose) 22.5 gm Q15M PRN PO DECREASED GLUCOSE; Start 04/22/19 at 01:30 Dextrose (D50w Syringe) 25 ml Q15M PRN IV DECREASED GLUCOSE; Start 04/22/19 at 01:30 Dextrose (D50w Syringe) 50 ml Q15M PRN IV DECREASED GLUCOSE; Start 04/22/19 at 01:30 Glucagon (Glucagen) 1 mg Q15M PRN IM DECREASED GLUCOSE; Start 04/22/19 at 01:30 Glucose (Glutose) 15 gm Q15M PRN BUCCAL DECREASED GLUCOSE; Start 04/22/19 at 01:30 Buspirone HCl (Buspar) 10 mg DAILY PO Last administered on 04/27/19 08:09; Admin Dose 10 MG; Start 04/22/19 at 09:00 Gabapentin (Neurontin) 100 mg TID PO Last administered on 04/27/19 12:08; Admin Dose 100 MG; Start 04/22/19 at 09:00 Lisinopril (Zestril) 20 mg DAILY PO Last administered on 04/22/19 08:59; Admin Dose 20 MG; Start 04/22/19 at 09:00; Status Hold Oxcarbazepine (Trileptal) 300 mg BID PO Last administered on 04/27/19 08:09; Admin Dose 300 MG; Start 04/22/19 at 09:00 Miscellaneous Information (Pending [facility] Order For Wound Care) This patient mario... PRN PRN XX WOUND CARE; Start 04/22/19 at 02:00 Hydralazine HCl (Apresoline) 25 mg Q8 PO Last administered on 04/27/19 06:08; Admin Dose 25 MG; Start 04/22/19 at 14:00 Acetaminophen (Tylenol Tab) 650 mg Q6H PRN PO MILD PAIN(1-3)OR ELEVATED TEMP Last administered on 04/23/19 20:44; Admin Dose 650 MG; Start 04/22/19 at 21:00 Trazodone HCl (Desyrel) 25 mg HS PO Last administered on 04/26/19 21:10; Admin Dose 25 MG; Start 04/23/19 at 21:00 Morphine Sulfate (morphine) 2 mg Q4H PRN IV SEVERE PAIN LEVEL 7-10 Last adm inistered on 04/22/19 21:45; Admin Dose 2 MG; Start 04/22/19 at 21:30 Ondansetron HCl (Zofran Inj) 4 mg Q4H PRN IV NAUSEA AND/OR VOMITING Last administered on 04/22/19 21:45; Admin Dose 4 MG; Start 04/22/19 at 22:00 Insulin Aspart (Novolog Insulin Pen) 10 unit WITH MEALS SC Last administered on 04/27/19 12:13; Admin Dose 10 UNIT; Start 04/23/19 at 11:30 Insulin Glargine (Lantus) 30 units WITH BREAKFAST SC Last administered on 04/27/19 08:06; Admin Dose 30 UNITS; Start 04/24/19 at 08:00 Lisinopril (Zestril) 10 mg DAILY PO Last administered on 04/27/19 08:10; Admin Dose 10 MG; Start 04/23/19 at 09:30 Heparin Sodium (Porcine) (Heparin (5000 Units/1ml)) 5,000 unit BID SC Last administered on 04/27/19 08:08; Admin Dose 5,000 UNIT; Start 04/23/19 at 21:00 Sodium Hypochlorite (Dakins Diluted (40)) 1 applic DAILY TP Last administered on 04/27/19 08:11; Admin Dose 1 APPLIC; Start 04/24/19 at 09:00 IV Flush (NS 10 ml) 10 ml PRN PRN IV per protocol; Start 04/23/19 at 18:00 Insulin Aspart (Novolog Insulin Pen) NOVOLOG *MILD* ALGORITHM WITH MEALS BEDTIME SC Last administered on 04/27/19 08:08; Admin Dose 3 UNIT; Start 04/23/19 at 21:30 Clindamycin HCl/ Dextrose 50 ml @ 50 mls/hr Q8 IVPB Last administered on 04/27/19 06:05; Admin Dose 50 MLS/HR; Start 04/24/19 at 22:00 Duloxetine HCl (Cymbalta) 20 mg BID PO Last administered on 04/27/19 08:09; Admin Dose 20 MG; Start 04/24/19 at 21:00 Guaifenesin/ Dextromethorphan (Robitussin Dm Liquid Cup) 5 ml Q4H PRN PO cough Last administered on 04/25/19at 00:56; Admin Dose 5 ML; Start 04/25/19 at 00:30 Alteplase, Recombinant (Cathflo (Activase)) 2 mg MAY REPEAT X1 PRN CATHETER IF CATHETER REMAINS OCCULUDED; Start 04/25/19 at 05:30 Amlodipine Besylate (Norvasc) 10 mg DAILY PO Last administered on 04/27/19 08:09; Admin Dose 10 MG; Start 04/26/19 at 09:00 SUZIE CESPEDES NP Apr 27, 2019 13:40
[2019-04-27 14:00] VITALS: BP 140/86; PULSE 78; RESP 20
--- NOTE | 2019-04-27 18:33 | CONS ---
Consultation Date/Type/Reason Admit Date/Time Apr 21, 2019 at 22:15 Initial Consult Date Type of Consult SUBJECTIVE: Pt is comfortably resting in bed. No fevers. No acute changes. VS: stable T: 98.0 LABS: Reviewed. Microbiology: Wound culture growing strep, MSSA, corynebacterium and coag negative staph Chest x-ray on admission revealed no evidence for acute cardiopulmonary process Antimicrobials: Clindamycin Allergy: Vanco Physical examination: GEN: Obese well-developed middle-aged man in no distress HENT: head atraumatic normocephalic neck is supple PULM: chest rise symmetrical breath sounds diminished to bases Heart S1-S2 Abdomen: soft bowel sounds present Extremities with left foot dressing Assessment: 1. S/p sepsis, present on admission 2. Left foot osteomyelitis/gas gangrene status post I&D 3. Diabetes with peripheral neuropathy 4. Obesity 5. Acute kidney insufficiency Plan: Pt is stable. continue current antbc. Ok to dc on IV Clindamycin or IV Dapto 6 mg/kg IV daily for 6 weeks when cleared by podiatry Date/Time of Note DATE: 04/27/19 TIME: 18:31 Exam/Review of Systems Exam Vitals Vital Signs Date Temp Pulse Resp B/P (MAP) Pulse Ox O2 O2 Flow FiO2 Time Delivery Rate 04/27/19 98.0 78 20 140/86 98 14:00 (104) 04/26/19 Room Air 08:00 Intake and Output 04/26/19 04/26/19 04/27/19 1515:00 23:00 07:00 IntakeIntake Total 50 ml 990 ml 800 ml OutputOutput Total 1350 ml 30684 ml BalanceBalance 50 ml -360 ml -9650 ml Results Result Diagram: 04/25/19 0843 04/25/19 0843 Results 24hrs Laboratory Tests Test 04/26/19 19:30 04/26/19 21:03 04/27/19 08:04 04/27/19 10:46 Erythrocyte 108 H 113 H Sedimentation Rate C-Reactive Protein 6.9 H 6.1 H Procalcitonin 0.11 H 0.09 Bedside Glucose 129 224 H Test 04/27/19 12:11 04/27/19 17:23 Bedside Glucose 119 106 Medications Medication Current Medications Diagnostic Test (Pha) (Accu-Chek) 1 ea 02 XX Last administered on 04/26/19at 02:07; Admin Dose 1 EA; Start 04/22/19 at 02:00 Miscellaneous Information 1 ea NOTE XX ; Start 04/22/19 at 01:30 Glucose (Glutose) 15 gm Q15M PRN PO DECREASED GLUCOSE; Start 04/22/19 at 01:30 Glucose (Glutose) 22.5 gm Q15M PRN PO DECREASED GLUCOSE; Start 04/22/19 at 01:30 Dextrose (D50w Syringe) 25 ml Q15M PRN IV DECREASED GLUCOSE; Start 04/22/19 at 01:30 Dextrose (D50w Syringe) 50 ml Q15M PRN IV DECREASED GLUCOSE; Start 04/22/19 at 01:30 Glucagon (Glucagen) 1 mg Q15M PRN IM DECREASED GLUCOSE; Start 04/22/19 at 01:30 Glucose (Glutose) 15 gm Q15M PRN BUCCAL DECREASED GLUCOSE; Start 04/22/19 at 01:30 Buspirone HCl (Buspar) 10 mg DAILY PO Last administered on 04/27/19at 08:09; Admin Dose 10 MG; Start 04/22/19 at 09:00 Gabapentin (Neurontin) 100 mg TID PO Last administered on 04/27/19at 12:08; Admin Dose 100 MG; Start 04/22/19 at 09:00 Lisinopril (Zestril) 20 mg DAILY PO Last administered on 04/22/19at 08:59; Admin Dose 20 MG; Start 04/22/19 at 09:00; Status Hold Oxcarbazepine (Trileptal) 300 mg BID PO Last administered on 04/27/19at 08:09; Admin Dose 300 MG; Start 04/22/19 at 09:00 Miscellaneous Information (Pending Santyl Order For Wound Care) This patient mario... PRN PRN XX WOUND CARE; Start 04/22/19 at 02:00 Hydralazine HCl (Apresoline) 25 mg Q8 PO Last administered on 04/27/19at 13:52; Admin Dose 25 MG; Start 04/22/19 at 14:00 Acetaminophen (Tylenol Tab) 650 mg Q6H PRN PO MILD PAIN(1-3)OR ELEVATED TEMP Last administered on 04/23/19at 20:44; Admin Dose 650 MG; Start 04/22/19 at 21:00 Trazodone HCl (Desyrel) 25 mg HS PO Last administered on 04/26/19 21:10; Admin Dose 25 MG; Start 04/23/19 at 21:00 Morphine Sulfate (morphine) 2 mg Q4H PRN IV SEVERE PAIN LEVEL 7-10 Last administered on 04/22/19 21:45; Admin Dose 2 MG; Start 04/22/19 at 21:30 Ondansetron HCl (Zofran Inj) 4 mg Q4H PRN IV NAUSEA AND/OR VOMITING Last a dministered on 04/22/19 21:45; Admin Dose 4 MG; Start 04/22/19 at 22:00 Insulin Aspart (Novolog Insulin Pen) 10 unit WITH MEALS SC Last administered on 04/27/19 17:27; Admin Dose 10 UNIT; Start 04/23/19 at 11:30 Insulin Glargine (Lantus) 30 units WITH BREAKFAST SC Last administered on 04/27/19 08:06; Admin Dose 30 UNITS; Start 04/24/19 at 08:00 Lisinopril (Zestril) 10 mg DAILY PO Last administered on 04/27/19 08:10; Admin Dose 10 MG; Start 04/23/19 at 09:30 Heparin Sodium (Porcine) (Heparin (5000 Units/1ml)) 5,000 unit BID SC Last administered on 04/27/19 08:08; Admin Dose 5,000 UNIT; Start 04/23/19 at 21:00 Sodium Hypochlorite (Dakins Diluted (1/40)) 1 applic DAILY TP Last administered on 04/27/19 08:11; Admin Dose 1 APPLIC; Start 04/24/19 at 09:00 IV Flush (NS 10 ml) 10 ml PRN PRN IV per protocol; Start 04/23/19 at 18:00 Insulin Aspart (Novolog Insulin Pen) NOVOLOG *MILD* ALGORITHM WITH MEALS BEDTIME SC Last administered on 04/27/19 08:08; Admin Dose 3 UNIT; Start 04/23/19 at 21:30 Clindamycin HCl/ Dextrose 50 ml @ 50 mls/hr Q8 IVPB Last administered on 04/27/19 13:52; Admin Dose 50 MLS/HR; Start 04/24/19 at 22:00 Duloxetine HCl (Cymbalta) 20 mg BID PO Last administered on 04/27/19at 08:09; Admin Dose 20 MG; Start 04/24/19 at 21:00 Guaifenesin/ Dextromethorphan (Robitussin Dm Liquid Cup) 5 ml Q4H PRN PO cough Last administered on 04/25/19at 00:56; Admin Dose 5 ML; Start 04/25/19 at 00:30 Alteplase, Recombinant (Cathflo (Activase)) 2 mg MAY REPEAT X1 PRN CATHETER IF CATHETER REMAINS OCCULUDED; Start 04/25/19 at 05:30 Amlodipine Besylate (Norvasc) 10 mg DAILY PO Last administered on 04/27/19at 08:09; Admin Dose 10 MG; Start 04/26/19 at 09:00 GENE BENITEZ Apr 27, 2019 18:33
[2019-04-27 20:14] VITALS: BP 103/61; PULSE 100; RESP 20
[2019-04-27] MEDS: traZODone 50 MG TAB PO SCH (20:31)
[2019-04-28] MEDS: ACCU-CHEK XX SCH (01:33)
[2019-04-28 02:06] VITALS: BP 139/85; PULSE 74; RESP 20
[2019-04-28] MEDS: CLINDAMYCIN 900 MG/D5W (PMX) 50 ML IVPB SCH (06:13)
[2019-04-28 07:49] VITALS: BP 151/83; PULSE 81; RESP 15
[2019-04-28] MEDS: INSULIN GLARGINE [LANTus] (100 UNITS/ML) SYG SC SCH (08:12)
[2019-04-28] MEDS: INSULIN ASPART [NOVOLOG] 3 ML PEN SC SCH ×7 (08:14→21:27)
[2019-04-28] MEDS: HEPARIN 5,000 UNIT/1 ML VIAL SC SCH ×2 (08:17→21:28)
[2019-04-28] MEDS: BUSPIRONE 10 MG TAB PO SCH (08:18)
[2019-04-28] MEDS: DULOXETINE 20 MG CAP DR PO SCH ×2 (08:18→21:25)
[2019-04-28] MEDS: OXCARBAZEPINE 300 MG TAB PO SCH ×2 (08:18→21:29)
[2019-04-28] MEDS: GABAPENTIN 100 MG CAP PO SCH ×3 (08:18→21:30)
[2019-04-28] MEDS: LISINOPRIL 10 MG TAB PO SCH (08:18)
[2019-04-28] MEDS: AMLODIPINE 5 MG TAB PO SCH (08:19)
[2019-04-28] MEDS: DAKINS 0.0125%(1/40) 473 ML SOLUTION TP SCH (08:20)
--- NOTE | 2019-04-28 12:34 | PN ---
Date/Time of Note Date/Time of Note DATE: 04/28/19 TIME: 12:32 Assessment/Plan VTE Prophylaxis Risk score (from Nsg)>0 risk: 3 SCD applied (from Ns): No SCD contraindicated: other Pharmacological prophylaxis: heparin Lines/Catheters IV Catheter Type (from Nrs): PICC Line Central line still needed: Yes Assessment/Plan Hospital Course SUBJECTIVE: No acute overnight episodes. OBJECTIVE: Vital signs-see below PHYSICAL EXAM: Constitutional: Adequately built,not in acute distress. HEENT: Head atraumatic and normocephalic. Eyes: Extraocular muscles intact. An icteric sclerae. Pupils equal bilaterally, reactive to light. NECK: Supple without lymph node. CHEST: Clear and good breath sounds equally. No wheezing. No rhonchi. HEART: S1, S2. Regular rate and rhythm. ABDOMEN: Soft/non tender with no rebound tenderness. Bowel sounds were present. EXTREMITIES:L foot bandaged. NEUROLOGIC: Alert and oriented x3. No focal deficit. No sensory deficit. PSYCHOSOCIAL: No signs of depression. INTEGUMENTARY: No open wounds. ASSESSMENT AND PLAN:43 yo M w/dm2,rt foot om, admitted with left big toe ulceration and foot cellulitis.. Sepsis Source:left foot ulceration w/gas gangrene -clinically resolved -CS reviewed-consider deescalation of abx Left foot gas gangrene/cellulitis -Appreciate excellent care of . s/p emergent I&D w/excisional debridement in OR 04/23/19-> recommended antimicrobial continuation with outpatient follow-up for possible HBO therapy. -Cont. abx Left hallux osteomyelitis -Continue IV antimicrobials. Anticipate 6 weeks. LACEY on CKD -Renal fxn back to normal after fluid challenge. -Tolerating MCKENNA inhibitors. -monitor DMII -Stable -Basal/bolus insulin-adjust for optimal control to allow wound healing -Carbohydrate controlled diet. Essential hypertension -stable.cont.acei/ hydralazine/amlodipine Anemia likely 2/2 inflammation -HH stable -monitor dvt ppx:heparin Dispo: DC planning HHS w/6 wks IV abx (pending ID recs),APC f/u w/,possible HBO therapy. patient was seen in collaboration with Result Diagram: 04/25/1943 04/25/19 0843 Results 24hrs Laboratory Tests Test 04/27/19 17:23 04/27/19 20:28 04/28/19 08:02 04/28/19 12:18 Bedside Glucose 106 117 155 144 Exam/Review of Systems Exam Vitals Vital Signs Date Temp Pulse Resp B/P (MAP) Pulse Ox O2 O2 Flow FiO2 Time Delivery Rate 04/28/19 98.5 81 15 151/83 99 Room Air 07:49 (105) Intake and Output 04/27/19 04/27/19 04/28/19 1515:00 23:00 07:00 IntakeIntake Total 690 ml 450 ml 400 ml OutputOutput Total 1100 ml 900 ml 625 ml BalanceBalance -410 ml -450 ml -225 ml Results Results 24hrs Laboratory Tests Test 04/27/19 17:23 04/27/19 20:28 04/28/19 08:02 04/28/19 12:18 Bedside Glucose 106 117 155 144 Medications Medication Current Medications Diagnostic Test (Pha) (Accu-Chek) 1 ea 02 XX Last administered on 04/26/19at 02:07; Admin Dose 1 EA; Start 04/22/19 at 02:00 Miscellaneous Information 1 ea NOTE XX ; Start 04/22/19 at 01:30 Glucose (Glutose) 15 gm Q15M PRN PO DECREASED GLUCOSE; Start 04/22/19 at 01:30 Glucose (Glutose) 22.5 gm Q15M PRN PO DECREASED GLUCOSE; Start 04/22/19 at 01:30 Dextrose (D50w Syringe) 25 ml Q15M PRN IV DECREASED GLUCOSE; Start 04/22/19 at 01:30 Dextrose (D50w Syringe) 50 ml Q15M PRN IV DECREASED GLUCOSE; Start 04/22/19 at 01:30 Glucagon (Glucagen) 1 mg Q15M PRN IM DECREASED GLUCOSE; Start 04/22/19 at 01:30 Glucose (Glutose) 15 gm Q15M PRN BUCCAL DECREASED GLUCOSE; Start 04/22/19 at 01:30 Buspirone HCl (Buspar) 10 mg DAILY PO Last administered on 04/28/19at 08:18; Admin Dose 10 MG; Start 04/22/19 at 09:00 Gabapentin (Neurontin) 100 mg TID PO Last administered on 04/28/19at 08:18; Admin Dose 100 MG; Start 04/22/19 at 09:00 Lisinopril (Zestril) 20 mg DAILY PO Last administered on 04/22/19 08:59; Admin Dose 20 MG; Start 04/22/19 at 09:00; Status Hold Oxcarbazepine (Trileptal) 300 mg BID PO Last administered on 04/28/19 08:18; Admin Dose 300 MG; Start 04/22/19 at 09:00 Miscellaneous Information (Pending Santyl Order For Wound Care) This patient mario... PRN PRN XX WOUND CARE; Start 04/22/19 at 02:00 Hydralazine HCl (Apresoline) 25 mg Q8 PO Last administered on 04/28/19 06:14; Admin Dose 25 MG; Start 04/22/19 at 14:00 Acetaminophen (Tylenol Tab) 650 mg Q6H PRN PO MILD PAIN(1-3)OR ELEVATED TEMP Last administered on 04/23/19 20:44; Admin Dose 650 MG; Start 04/22/19 at 21:00 Trazodone HCl (Desyrel) 25 mg HS PO Last administered on 04/27/19 20:31; Admin Dose 25 MG; Start 04/23/19 at 21:00 Morphine Sulfate (morphine) 2 mg Q4H PRN IV SEVERE PAIN LEVEL 7-10 Last administered on 04/22/19 21:45; Admin Dose 2 MG; Start 04/22/19 at 21:30 Ondansetron HCl (Zofran Inj) 4 mg Q4H PRN IV NAUSEA AND/OR VOMITING Last admin istered on 04/22/19 21:45; Admin Dose 4 MG; Start 04/22/19 at 22:00 Insulin Aspart (Novolog Insulin Pen) 10 unit WITH MEALS SC Last administered on 04/28/19 12:27; Admin Dose 10 UNIT; Start 04/23/19 at 11:30 Insulin Glargine (Lantus) 30 units WITH BREAKFAST SC Last administered on 04/28/19 08:12; Admin Dose 30 UNITS; Start 04/24/19 at 08:00 Lisinopril (Zestril) 10 mg DAILY PO Last administered on 04/28/19 08:18; Admin Dose 10 MG; Start 04/23/19 at 09:30 Heparin Sodium (Porcine) (Heparin (5000 Units/1ml)) 5,000 unit BID SC Last administered on 04/28/19 08:17; Admin Dose 5,000 UNIT; Start 04/23/19 at 21:00 Sodium Hypochlorite (Dakins Diluted (40)) 1 applic DAILY TP Last administered on 04/28/19 08:20; Admin Dose 1 APPLIC; Start 04/24/19 at 09:00 IV Flush (NS 10 ml) 10 ml PRN PRN IV per protocol; Start 04/23/19 at 18:00 Insulin Aspart (Novolog Insulin Pen) NOVOLOG *MILD* ALGORITHM WITH MEALS BEDTIME SC Last administered on 04/28/19 12:27; Admin Dose 1 UNIT; Start 04/23/19 at 21:30 Clindamycin HCl/ Dextrose 50 ml @ 50 mls/hr Q8 IVPB Last administered on 04/28/19 06:13; Admin Dose 50 MLS/HR; Start 04/24/19 at 22:00 Duloxetine HCl (Cymbalta) 20 mg BID PO Last administered on 04/28/19 08:18; Admin Dose 20 MG; Start 04/24/19 at 21:00 Guaifenesin/ Dextromethorphan (Robitussin Dm Liquid Cup) 5 ml Q4H PRN PO cough Last administered on 04/25/19at 00:56; Admin Dose 5 ML; Start 04/25/19 at 00:30 Alteplase, Recombinant (Cathflo (Activase)) 2 mg MAY REPEAT X1 PRN CATHETER IF CATHETER REMAINS OCCULUDED; Start 04/25/19 at 05:30 Amlodipine Besylate (Norvasc) 10 mg DAILY PO Last administered on 04/28/19 08:19; Admin Dose 10 MG; Start 04/26/19 at 09:00 SUZIE CESPEDES NP Apr 28, 2019 12:34
--- NOTE | 2019-04-28 13:16 | CONS ---
Consultation Date/Type/Reason Admit Date/Time Apr 21, 2019 at 22:15 Initial Consult Date Type of Consult SUBJECTIVE: Pt is comfortably resting in bed. No fevers. No acute changes. VS: stable T: 98.5 LABS: Reviewed. Microbiology: Wound culture growing strep, MSSA, corynebacterium and coag negative staph Chest x-ray on admission revealed no evidence for acute cardiopulmonary process Antimicrobials: Clindamycin Allergy: Vanco Physical examination: GEN: Obese well-developed middle-aged man in no distress HENT: head atraumatic normocephalic neck is supple PULM: chest rise symmetrical breath sounds diminished to bases Heart S1-S2 Abdomen: soft bowel sounds present Extremities with left foot dressing Assessment: 1. S/p sepsis, present on admission 2. Left foot osteomyelitis/gas gangrene status post I&D 3. Diabetes with peripheral neuropathy 4. Obesity 5. Acute kidney insufficiency Plan: Pt is stable. Will change antbx. to IV Rocephin and PO Cipro to complete x6 weeks. Date/Time of Note DATE: 04/28/19 TIME: 13:14 Exam/Review of Systems Exam Vitals Vital Signs Date Temp Pulse Resp B/P (MAP) Pulse Ox O2 O2 Flow FiO2 Time Delivery Rate 04/28/19 98.5 81 15 151/83 99 Room Air 07:49 (105) Intake and Output 04/27/19 04/27/19 04/28/19 1515:00 23:00 07:00 IntakeIntake Total 690 ml 450 ml 400 ml OutputOutput Total 1100 ml 900 ml 625 ml BalanceBalance -410 ml -450 ml -225 ml Results Result Diagram: 04/25/19 0843 04/25/19 0843 Results 24hrs Laboratory Tests Test 04/27/19 17:23 04/27/19 20:28 04/28/19 08:02 04/28/19 12:18 Bedside Glucose 106 117 155 144 Medications Medication Current Medications Diagnostic Test (Pha) (Accu-Chek) 1 ea 02 XX Last administered on 04/26/19at 02:07; Admin Dose 1 EA; Start 04/22/19 at 02:00 Miscellaneous Information 1 ea NOTE XX ; Start 04/22/19 at 01:30 Glucose (Glutose) 15 gm Q15M PRN PO DECREASED GLUCOSE; Start 04/22/19 at 01:30 Glucose (Glutose) 22.5 gm Q15M PRN PO DECREASED GLUCOSE; Start 04/22/19 at 01:30 Dextrose (D50w Syringe) 25 ml Q15M PRN IV DECREASED GLUCOSE; Start 04/22/19 at 01:30 Dextrose (D50w Syringe) 50 ml Q15M PRN IV DECREASED GLUCOSE; Start 04/22/19 at 01:30 Glucagon (Glucagen) 1 mg Q15M PRN IM DECREASED GLUCOSE; Start 04/22/19 at 01:30 Glucose (Glutose) 15 gm Q15M PRN BUCCAL DECREASED GLUCOSE; Start 04/22/19 at 01:30 Buspirone HCl (Buspar) 10 mg DAILY PO Last administered on 04/28/19 08:18; A dmin Dose 10 MG; Start 04/22/19 at 09:00 Gabapentin (Neurontin) 100 mg TID PO Last administered on 04/28/19 08:18; Admin Dose 100 MG; Start 04/22/19 at 09:00 Lisinopril (Zestril) 20 mg DAILY PO Last administered on 04/22/19 08:59; Admin Dose 20 MG; Start 04/22/19 at 09:00; Status Hold Oxcarbazepine (Trileptal) 300 mg BID PO Last administered on 04/28/19 08:18; Admin Dose 300 MG; Start 04/22/19 at 09:00 [facility] This patient mario... PRN PRN XX WOUND CARE; Start 04/22/19 at 02:00 Hydralazine HCl (Apresoline) 25 mg Q8 PO Last administered on 04/28/19 06:14; Admin Dose 25 MG; Start 04/22/19 at 14:00 Acetaminophen (Tylenol Tab) 650 mg Q6H PRN PO MILD PAIN(1-3)OR ELEVATED TEMP Last administered on 04/23/19at 20:44; Admin Dose 650 MG; Start 04/22/19 at 21:00 Trazodone HCl (Desyrel) 25 mg HS PO Last administered on 04/27/19 20:31; Admin Dose 25 MG; Start 04/23/19 at 21:00 Morphine Sulfate (morphine) 2 mg Q4H PRN IV SEVERE PAIN LEVEL 7-10 Last administered on 04/22/19 21:45; Admin Dose 2 MG; Start 04/22/19 at 21:30 Ondansetron HCl (Zofran Inj) 4 mg Q4H PRN IV NAUSEA AND/OR VOMITING Last administered on 04/22/19 21:45; Admin Dose 4 MG; Start 04/22/19 at 22:00 Insulin Aspart (Novolog Insulin Pen) 10 unit WITH MEALS SC Last administered on 04/28/19 12:27; Admin Dose 10 UNIT; Start 04/23/19 at 11:30 Insulin Glargine (Lantus) 30 units WITH BREAKFAST SC Last administered on 04/28/19 08:12; Admin Dose 30 UNITS; Start 04/24/19 at 08:00 Lisinopril (Zestril) 10 mg DAILY PO Last administered on 04/28/19 08:18; Admin Dose 10 MG; Start 04/23/19 at 09:30 Heparin Sodium (Porcine) (Heparin (5000 Units/1ml)) 5,000 unit BID SC Last administered on 04/28/19 08:17; Admin Dose 5,000 UNIT; Start 04/23/19 at 21:00 Sodium Hypochlorite (Dakins Diluted (1/40)) 1 applic DAILY TP Last administered on 04/28/19 08:20; Admin Dose 1 APPLIC; Start 04/24/19 at 09:00 IV Flush (NS 10 ml) 10 ml PRN PRN IV per protocol; Start 04/23/19 at 18:00 Insulin Aspart (Novolog Insulin Pen) NOVOLOG *MILD* ALGORITHM WITH MEALS BEDTIME SC Last administered on 04/28/19 12:27; Admin Dose 1 UNIT; Start 04/23/19 at 21:30 Duloxetine HCl (Cymbalta) 20 mg BID PO Last administered on 04/28/19 08:18; Admin Dose 20 MG; Start 04/24/19 at 21:00 Guaifenesin/ Dextromethorphan (Robitussin Dm Liquid Cup) 5 ml Q4H PRN PO cough Last administered on 04/25/19 00:56; Admin Dose 5 ML; Start 04/25/19 at 00:30 Alteplase, Recombinant (Cathflo (Activase)) 2 mg MAY REPEAT X1 PRN CATHETER IF CATHETER REMAINS OCCULUDED; Start 04/25/19 at 05:30 Amlodipine Besylate (Norvasc) 10 mg DAILY PO Last administered on 04/28/19at 08:19; Admin Dose 10 MG; Start 04/26/19 at 09:00 Ceftriaxone Sodium 50 ml @ 100 mls/hr Q24H IVPB ; Start 04/28/19 at 14:00 Ciprofloxacin (Cipro) 500 mg BID@06,18 PO ; Start 04/28/19 at 18:00 GENE BENITEZ Apr 28, 2019 13:16
[2019-04-28 13:38] VITALS: BP 140/85; PULSE 79; RESP 17
[2019-04-28] MEDS: CEFTRIAXONE 2 GM/50 ML (PMX) 50 ML IVPB SCH (14:37)
[2019-04-28] MEDS: CIPROFLOXACIN 500 MG TAB PO SCH (17:19)
[2019-04-28 20:40] VITALS: BP 124/67; PULSE 91; RESP 18
[2019-04-28 21:22] VITALS: BP 151/89
[2019-04-28] MEDS: traZODone 50 MG TAB PO SCH (21:26)
[2019-04-29] MEDS: ACCU-CHEK XX SCH (02:05)
[2019-04-29 02:56] VITALS: BP 128/71; PULSE 76; RESP 16
[2019-04-29 06:16] VITALS: BP 142/88; PULSE 82
[2019-04-29] MEDS: CIPROFLOXACIN 500 MG TAB PO SCH ×2 (06:20→17:24)
[2019-04-29 07:53] VITALS: BP 121/80; PULSE 85; RESP 14
[2019-04-29] MEDS: INSULIN ASPART [NOVOLOG] 3 ML PEN SC SCH ×7 (08:00→21:00)
[2019-04-29] MEDS: INSULIN GLARGINE [LANTus] (100 UNITS/ML) SYG SC SCH (08:43)
[2019-04-29] MEDS: HEPARIN 5,000 UNIT/1 ML VIAL SC SCH ×2 (08:44→21:27)
[2019-04-29] MEDS: DULOXETINE 20 MG CAP DR PO SCH ×2 (08:50→21:22)
[2019-04-29] MEDS: LISINOPRIL 10 MG TAB PO SCH (08:50)
[2019-04-29] MEDS: BUSPIRONE 10 MG TAB PO SCH (08:51)
[2019-04-29] MEDS: GABAPENTIN 100 MG CAP PO SCH ×3 (08:51→21:22)
[2019-04-29] MEDS: OXCARBAZEPINE 300 MG TAB PO SCH ×2 (08:51→21:22)
[2019-04-29] MEDS: AMLODIPINE 5 MG TAB PO SCH (08:52)
[2019-04-29] MEDS: DAKINS 0.0125%(1/40) 473 ML SOLUTION TP SCH (08:53)
--- NOTE | 2019-04-29 09:11 | PN ---
Date/Time of Note Date/Time of Note DATE: 04/29/19 TIME: 09:09 Assessment/Plan VTE Prophylaxis Risk score (from Nsg)>0 risk: 6 SCD applied (from Ns): No SCD contraindicated: other Pharmacological prophylaxis: heparin Lines/Catheters IV Catheter Type (from [facility]): PICC Line Central line still needed: Yes Assessment/Plan Hospital Course SUBJECTIVE: No acute overnight episodes. OBJECTIVE: Vital signs-see below PHYSICAL EXAM: Constitutional: Adequately built,not in acute distress. HEENT: Head atraumatic and normocephalic. Eyes: Extraocular muscles intact. An icteric sclerae. Pupils equal bilaterally, reactive to light. NECK: Supple without lymph node. CHEST: Clear and good breath sounds equally. No wheezing. No rhonchi. HEART: S1, S2. Regular rate and rhythm. ABDOMEN: Soft/non tender with no rebound tenderness. Bowel sounds were present. EXTREMITIES:L foot bandaged. NEUROLOGIC: Alert and oriented x3. No focal deficit. No sensory deficit. PSYCHOSOCIAL: No signs of depression. INTEGUMENTARY: No open wounds. ASSESSMENT AND PLAN:43 yo M w/dm2,rt foot om, admitted with left big toe ulceration and foot cellulitis.. Sepsis Source:left foot ulceration w/gas gangrene -clinically resolved -cont.abx Left foot gas gangrene/cellulitis -Appreciate excellent care of . s/p emergent I&D w/excisional debridement in OR 04/23/19-> recommended antimicrobial continuation with outpatient follow-up for possible HBO therapy. -Cont. abx Left hallux osteomyelitis -Continue 6 wks iv rocephin./po cipro LACEY on CKD -Renal fxn back to normal after fluid challenge. -Tolerating MCKENNA inhibitors. -monitor DMII -Stable -Basal/bolus insulin-adjust for optimal control to allow wound healing -Carbohydrate controlled diet. Essential hypertension -stable.cont.acei/ hydralazine/amlodipine Anemia likely 2/2 inflammation -HH stable -monitor dvt ppx:heparin Dispo: DC planning HHS w/6 wks IV abx,APC f/u w/,possible HBO therapy. CM to arrange crutches/front wheel walker. Staff to check w//Art regarding whether pt needs post op shoes w/ambulation. patient was seen in collaboration with Result Diagram: 04/25/19 0843 04/25/19 0843 Results 24hrs Laboratory Tests Test 04/28/19 12:18 04/28/19 17:08 04/28/19 21:23 04/29/19 02:00 Bedside Glucose 144 97 281 H 200 Test 04/29/19 08:39 Bedside Glucose 140 Exam/Review of Systems Exam Vitals Vital Signs Date Temp Pulse Resp B/P (MAP) Pulse Ox O2 O2 Flow FiO2 Time Delivery Rate 04/29/19 98.2 85 14 121/80 99 Room Air 07:53 (94) Intake and Output 04/28/19 04/28/19 04/29/19 1515:00 23:00 07:00 IntakeIntake Total 50 ml 650 ml OutputOutput Total 1100 ml 550 ml BalanceBalance 50 ml -450 ml -550 ml Results Results 24hrs Laboratory Tests Test 04/28/19 12:18 04/28/19 17:08 04/28/19 21:23 04/29/19 02:00 Bedside Glucose 144 97 281 H 200 Test 04/29/19 08:39 Bedside Glucose 140 Medications Medication Current Medications Diagnostic Test (Pha) (Accu-Chek) 1 ea 02 XX Last administered on 04/29/19at 02:05; Admin Dose 1 EA; Start 04/22/19 at 02:00 Miscellaneous Information 1 ea NOTE XX ; Start 04/22/19 at 01:30 Glucose (Glutose) 15 gm Q15M PRN PO DECREASED GLUCOSE; Start 04/22/19 at 01:30 Glucose (Glutose) 22.5 gm Q15M PRN PO DECREASED GLUCOSE; Start 04/22/19 at 01:30 Dextrose (D50w Syringe) 25 ml Q15M PRN IV DECREASED GLUCOSE; Start 04/22/19 at 01:30 Dextrose (D50w Syringe) 50 ml Q15M PRN IV DECREASED GLUCOSE; Start 04/22/19 at 01:30 Glucagon (Glucagen) 1 mg Q15M PRN IM DECREASED GLUCOSE; Start 04/22/19 at 01:30 Glucose (Glutose) 15 gm Q15M PRN BUCCAL DECREASED GLUCOSE; Start 04/22/19 at 01:30 Buspirone HCl (Buspar) 10 mg DAILY PO Last administered on 04/29/19 08:51; Admin Dose 10 MG; Start 04/22/19 at 09:00 Gabapentin (Neurontin) 100 mg TID PO Last administered on 04/29/19 08:51; Admin Dose 100 MG; Start 04/22/19 at 09:00 Lisinopril (Zestril) 20 mg DAILY PO Last administered on 04/22/19 08:59; Admin Dose 20 MG; Start 04/22/19 at 09:00; Status Hold Oxcarbazepine (Trileptal) 300 mg BID PO Last administered on 04/29/19 08:51; Admin Dose 300 MG; Start 04/22/19 at 09:00 Miscellaneous Information [facility] This patient mario... PRN PRN XX WOUND CARE; Start 04/22/19 at 02:00 Hydralazine HCl (Apresoline) 25 mg Q8 PO Last administered on 04/29/19 06:20; Admin Dose 25 MG; Start 04/22/19 at 14:00 Acetaminophen (Tylenol Tab) 650 mg Q6H PRN PO MILD PAIN(1-3)OR ELEVATED TEMP Last administered on 04/23/19 20:44; Admin Dose 650 MG; Start 04/22/19 at 21:00 Trazodone HCl (Desyrel) 25 mg HS PO Last administered on 04/28/19 21:26; Admin Dose 25 MG; Start 04/23/19 at 21:00 Morphine Sulfate (morphine) 2 mg Q4H PRN IV SEVERE PAIN LEVEL 7-10 Last administered on 04/22/19 21:45; Admin Dose 2 MG; Start 04/22/19 at 21:30 Ondansetron HCl (Zofran Inj) 4 mg Q4H PRN IV NAUSEA AND/OR VOMITING Last administered on 04/22/19 21:45; Admin Dose 4 MG; Start 04/22/19 at 22:00 Insulin Aspart (Novolog Insulin Pen) 10 unit WITH MEALS SC Last administered on 04/29/19 08:44; Admin Dose 10 UNIT; Start 04/23/19 at 11:30 Insulin Glargine (Lantus) 30 units WITH BREAKFAST SC Last administered on 04/29/19 08:43; Admin Dose 30 UNITS; Start 04/24/19 at 08:00 Lisinopril (Zestril) 10 mg DAILY PO Last administered on 04/29/19 08:50; Admin Dose 10 MG; Start 04/23/19 at 09:30 Heparin Sodium (Porcine) (Heparin (5000 Units/1ml)) 5,000 unit BID SC Last administered on 04/29/19 08:44; Admin Dose 5,000 UNIT; Start 04/23/19 at 21:00 Sodium Hypochlorite (Dakins Diluted ()) 1 applic DAILY TP Last administered on 04/29/19 08:53; Admin Dose 1 APPLIC; Start 04/24/19 at 09:00 IV Flush (NS 10 ml) 10 ml PRN PRN IV per protocol; Start 04/23/19 at 18:00 Insulin Aspart (Novolog Insulin Pen) NOVOLOG *MILD* ALGORITHM WITH MEALS BEDTIME SC Last administered on 04/28/19 21:27; Admin Dose 3 UNIT; Start 04/23/19 at 21:30 Duloxetine HCl (Cymbalta) 20 mg BID PO Last administered on 04/29/19 08:50; Admin Dose 20 MG; Start 04/24/19 at 21:00 Guaifenesin/ Dextromethorphan (Robitussin Dm Liquid Cup) 5 ml Q4H PRN PO cough Last administered on 04/25/19 00:56; Admin Dose 5 ML; Start 04/25/19 at 00:30 Alteplase, Recombinant (Cathflo (Activase)) 2 mg MAY REPEAT X1 PRN CATHETER IF CATHETER REMAINS OCCULUDED; Start 04/25/19 at 05:30 Amlodipine Besylate (Norvasc) 10 mg DAILY PO Last administered on 04/29/19 08:52; Admin Dose 10 MG; Start 04/26/19 at 09:00 Ceftriaxone Sodium 50 ml @ 100 mls/hr Q24H IVPB Last administered on 04/28/19 14:37; Admin Dose 100 MLS/HR; Start 04/28/19 at 14:00 Ciprofloxacin (Cipro) 500 mg BID@06,18 PO Last administered on 04/29/19 06:20; Admin Dose 500 MG; Start 04/28/19 at 18:00 SUZIE CESPEDES NP Apr 29, 2019 09:11
[2019-04-29] MEDS ORDERED: INSU100I33 SC (09:18)
[2019-04-29] MEDS ORDERED: DULO20CA43 PO (09:18)
[2019-04-29] MEDS ORDERED: INSU100I12 SQ (09:18)
[2019-04-29] MEDS ORDERED: LISI10TA2 PO (09:18)
[2019-04-29] MEDS ORDERED: CEFT2FRO2 IV (09:18)
[2019-04-29] MEDS ORDERED: CIPR500T4 PO (09:18)
[2019-04-29] MEDS ORDERED: HYDR-3671 PO (09:18)
--- NOTE | 2019-04-29 11:01 | CONS ---
Assessment/Plan Assessment/Plan Hospital Course (Demo Recall) No acute changes over night Microbiology: Wound culture growing strep, MSSA, corynebacterium and coag negative staph Chest x-ray on admission revealed no evidence for acute cardiopulmonary process Antimicrobials: Cipro, Rocephin Allergy: Vanco Physical examination: Obese well-developed middle-aged man in no distress head atraumatic normocephalic neck is supple chest rise symmetrical breath sounds diminished to bases heart S1-S2 abdomen soft bowel sounds present extremities with left foot dressing Assessment: 1. S/p sepsis, present on admission 2. Left foot osteomyelitis/gas gangrene status post I&D 3. Diabetes with peripheral neuropathy 4. Obesity 5. Acute kidney insufficiency Plan: Remains stable, ESR still high, continue abx, wound care per podiatry, plan to dc on current abx for 6 weeks==> orders for CM written Consultation Date/Type/Reason Admit Date/Time Apr 21, 2019 at 22:15 Initial Consult Date Type of Consult id Date/Time of Note DATE: 04/29/19 TIME: 10:59 Exam/Review of Systems Exam Vitals Vital Signs Date Temp Pulse Resp B/P (MAP) Pulse Ox O2 O2 Flow FiO2 Time Delivery Rate 04/29/19 98.2 85 14 121/80 99 Room Air 07:53 (94) Intake and Output 04/28/19 04/28/19 04/29/19 1515:00 23:00 07:00 IntakeIntake Total 50 ml 650 ml OutputOutput Total 1100 ml 550 ml BalanceBalance 50 ml -450 ml -550 ml Results Result Diagram: 04/25/19 0843 04/25/19 0843 Results 24hrs Laboratory Tests Test 04/28/19 12:18 04/28/19 17:08 04/28/19 21:23 04/29/19 02:00 Bedside Glucose 144 97 281 H 200 Test 04/29/19 08:39 Bedside Glucose 140 Medications Medication Current Medications Diagnostic Test (Pha) (Accu-Chek) 1 ea 02 XX Last administered on 04/29/19at 02:05; Admin Dose 1 EA; Start 04/22/19 at 02:00 Miscellaneous Information 1 ea NOTE XX ; Start 04/22/19 at 01:30 Glucose (Glutose) 15 gm Q15M PRN PO DECREASED GLUCOSE; Start 04/22/19 at 01:30 Glucose (Glutose) 22.5 gm Q15M PRN PO DECREASED GLUCOSE; Start 04/22/19 at 01:30 Dextrose (D50w Syringe) 25 ml Q15M PRN IV DECREASED GLUCOSE; Start 04/22/19 at 01:30 Dextrose (D50w Syringe) 50 ml Q15M PRN IV DECREASED GLUCOSE; Start 04/22/19 at 01:30 Glucagon (Glucagen) 1 mg Q15M PRN IM DECREASED GLUCOSE; Start 04/22/19 at 01:30 Glucose (Glutose) 15 gm Q15M PRN BUCCAL DECREASED GLUCOSE; Start 04/22/19 at 01:30 Buspirone HCl (Buspar) 10 mg DAILY PO Last administered on 04/29/19 08:51; Admin Dose 10 MG; Start 04/22/19 at 09:00 Gabapentin (Neurontin) 100 mg TID PO Last administered on 04/29/19 08:51; Admin Dose 100 MG; Start 04/22/19 at 09:00 Lisinopril (Zestril) 20 mg DAILY PO Last administered on 04/22/19 08:59; Admin Dose 20 MG; Start 04/22/19 at 09:00; Status Hold Oxcarbazepine (Trileptal) 300 mg BID PO Last administered on 04/29/19 08:51; Admin Dose 300 MG; Start 04/22/19 at 09:00 Miscellaneous Information [facility] This patient mario... PRN PRN XX WOUND CARE; Start 04/22/19 at 02:00 Hydralazine HCl (Apresoline) 25 mg Q8 PO Last administered on 04/29/19 06:20; Admin Dose 25 MG; Start 04/22/19 at 14:00 Acetaminophen (Tylenol Tab) 650 mg Q6H PRN PO MILD PAIN(1-3)OR ELEVATED TEMP Last administered on 04/23/19at 20:44; Admin Dose 650 MG; Start 04/22/19 at 21:00 Trazodone HCl (Desyrel) 25 mg HS PO Last administered on 04/28/19 21:26; Admin Dose 25 MG; Start 04/23/19 at 21:00 Morphine Sulfate (morphine) 2 mg Q4H PRN IV SEVERE PAIN LEVEL 7-10 Last administered on 04/22/19 21:45; Admin Dose 2 MG; Start 04/22/19 at 21:30 Ondansetron HCl (Zofran Inj) 4 mg Q4H PRN IV NAUSEA AND/OR VOMITING Last administered on 04/22/19 21:45; Admin Dose 4 MG; Start 04/22/19 at 22:00 Insulin Aspart (Novolog Insulin Pen) 10 unit WITH MEALS SC Last administered on 04/29/19 08:44; Admin Dose 10 UNIT; Start 04/23/19 at 11:30 Insulin Glargine (Lantus) 30 units WITH BREAKFAST SC Last administered on 04/29/19 08:43; Admin Dose 30 UNITS; Start 04/24/19 at 08:00 Lisinopril (Zestril) 10 mg DAILY PO Last administered on 04/29/19 08:50; Admin Dose 10 MG; Start 04/23/19 at 09:30 Heparin Sodium (Porcine) (Heparin (5000 Units/1ml)) 5,000 unit BID SC Last administered on 04/29/19 08:44; Admin Dose 5,000 UNIT; Start 04/23/19 at 21:00 Sodium Hypochlorite (Dakins Diluted (1/40)) 1 applic DAILY TP Last administered on 04/29/19 08:53; Admin Dose 1 APPLIC; Start 04/24/19 at 09:00 IV Flush (NS 10 ml) 10 ml PRN PRN IV per protocol; Start 04/23/19 at 18:00 Insulin Aspart (Novolog Insulin Pen) NOVOLOG *MILD* ALGORITHM WITH MEALS BEDTIME SC Last administered on 04/28/19 21:27; Admin Dose 3 UNIT; Start 04/23/19 at 21:30 Duloxetine HCl (Cymbalta) 20 mg BID PO Last administered on 04/29/19 08:50; Admin Dose 20 MG; Start 04/24/19 at 21:00 Guaifenesin/ Dextromethorphan (Robitussin Dm Liquid Cup) 5 ml Q4H PRN PO cough Last administered on 04/25/19 00:56; Admin Dose 5 ML; Start 04/25/19 at 00:30 Alteplase, Recombinant (Cathflo (Activase)) 2 mg MAY REPEAT X1 PRN CATHETER IF CATHETER REMAINS OCCULUDED; Start 04/25/19 at 05:30 Amlodipine Besylate (Norvasc) 10 mg DAILY PO Last administered on 04/29/19at 08:52; Admin Dose 10 MG; Start 04/26/19 at 09:00 Ceftriaxone Sodium 50 ml @ 100 mls/hr Q24H IVPB Last administered on 04/28/19at 14:37; Admin Dose 100 MLS/HR; Start 04/28/19 at 14:00 Ciprofloxacin (Cipro) 500 mg BID@06,18 PO Last administered on 04/29/19at 06:20; Admin Dose 500 MG; Start 04/28/19 at 18:00 SUREKHA LINDA NP Apr 29, 2019 11:01
[2019-04-29 14:05] VITALS: BP 132/81; PULSE 76; RESP 15
[2019-04-29] MEDS: CEFTRIAXONE 2 GM/50 ML (PMX) 50 ML IVPB SCH (14:27)
[2019-04-29 20:30] VITALS: BP 155/82; PULSE 89; RESP 18
[2019-04-29] MEDS: traZODone 50 MG TAB PO SCH (21:22)
[2019-04-30 01:46] VITALS: BP 119/70; PULSE 77; RESP 18
[2019-04-30] MEDS: ACCU-CHEK XX SCH (02:00)
[2019-04-30] MEDS: CIPROFLOXACIN 500 MG TAB PO SCH (06:33)
[2019-04-30 07:59] VITALS: BP 129/78; PULSE 79; RESP 18
[2019-04-30] MEDS: OXCARBAZEPINE 300 MG TAB PO SCH (08:28)
[2019-04-30] MEDS: DULOXETINE 20 MG CAP DR PO SCH (08:28)
[2019-04-30] MEDS: GABAPENTIN 100 MG CAP PO SCH ×2 (08:28→12:28)
[2019-04-30] MEDS: AMLODIPINE 5 MG TAB PO SCH (08:29)
[2019-04-30] MEDS: BUSPIRONE 10 MG TAB PO SCH (08:29)
[2019-04-30] MEDS: LISINOPRIL 10 MG TAB PO SCH (08:29)
[2019-04-30] MEDS: INSULIN ASPART [NOVOLOG] 3 ML PEN SC SCH ×4 (08:30→12:28)
[2019-04-30] MEDS: INSULIN GLARGINE [LANTus] (100 UNITS/ML) SYG SC SCH (08:31)
[2019-04-30] MEDS: HEPARIN 5,000 UNIT/1 ML VIAL SC SCH (08:32)
[2019-04-30] MEDS: DAKINS 0.0125%(1/40) 473 ML SOLUTION TP SCH (08:36)
--- NOTE | 2019-04-30 12:19 | PDOCDIS ---
Discharge Instructions CONDITION [id number] Patient Condition: [id number] Stable HOME CARE INSTRUCTIONS: [id number] Your diet recommendation is: [id number] Carbohydrate controlled diet FOLLOW UP/APPOINTMENTS Follow-up Plan Follow-up with [facility] amputation prevention clinic on the fourth floor on . Follow-up with primary care physician in 1 week. Home health nurse to administer antibiotics and wound care. Weightbearing as instructed by your resident services coordinator. SUZIE CESPEDES NP Apr 30, 2019 12:19
--- NOTE | 2019-04-30 12:20 | DS ---
Date/Time of Note Date/Time of Note DATE: 04/30/19 TIME: 12:19 Discharge Summary Admission/Discharge Info Admit Date/Time Apr 21, 2019 at 22:15 Discharge Date/Time Discharge Diagnosis s/p Sepsis Source:left foot ulceration w/gas gangrene Left foot gas gangrene/cellulitis s/p emergent I&D w/excisional debridement in OR 04/23/19-> recommended antimicrobial continuation with outpatient follow-up for possible HBO therapy. Left hallux osteomyelitis DMII Essential hypertension Anemia likely 2/2 inflammation Patient Condition: Stable Consults DR.Dawoodian De Dios Procedures 04/22/2019: Operation/Procedure Performed Left foot incision and drainage left foot excisional debridement 04/24/2019: PICC line insertion 04/23/2019: Left foot MRI: IMPRESSION: Findings consistent with osteomyelitis of the great toe, as above. Small joint effusion at the first MTP joint with minimal bone marrow edema in the head of the first metatarsal. Findings may represent stress response or early septic arthritis/osteomyelitis. Mild bone marrow edema is also present in the base of the second proximal phalan x and head of the second metatarsal with tiny joint effusion at the MTP joint. Differential includes stress reaction versus early septic arthritis/osteomyelitis. Soft tissue swelling, most pronounced at the great toe with adjacent soft tissue wound/ulcer and soft tissue gas, as above. Hospital Course 43 yo M w/dm2,rt foot om, admitted with left big toe ulceration and foot cellulitis.. Patient was noted with left foot ulceration with gas gangrene. Patient underwent emergent I&D w/excisional debridement in OR 04/23/19 with . Patient was also noted with left hallux osteomyelitis. Postoperatively, patient did well. Sepsis resolved. Patient was continued on glycemic control with insulin regimen with stable blood sugar levels. Wound culture grew polymicrobial's. Patient was recommended to continue 6 weeks IV antibiotics ceftriaxone and p.o. Cipro. Home health arranged and patient had PICC line. Patient was cleared for outpatient follow-up with amputation prevention clinic with possible HBO therapy. During the course of hospitalization, comorbidities were managed per outpatient regimen with some titration of blood pressure medications and insulin regimen. He was also noted with depressive disorder for which patient had psychiatric nurse practitioner evaluation and was started on Cymbalta. Patient has a mild pleasant and in a good mood all the time. Approximately 60-minute was spent in coordinating the discharge on this patient. Patient was seen in collaboration with Dr.Rahi Cuenca [facility] [employer] Insulin Lispro (Humalog Kwikpen U-100) 100 Unit/1 Ml Insuln.pen, 10 UNIT SQ WITH MEALS, #1 EA #100 test strips #100 lancets #100 32 gauge insulin pen needles blood sugar checkss ac meals and at bed time Prov:CESPEDES,SUZIE V. PICKER OPERATOR 04/29/19 Duloxetine Hcl* (Cymbalta*) 20 Mg Capsule.dr, 20 MG PO BID, #60 TAB Prov:CESPEDES,SUZIE V. PICKER OPERATOR 04/29/19 Hydralazine Hcl* (Hydralazine Hcl*) 25 Mg Tab, 25 MG PO Q8, #90 TAB Prov:CESPEDES,SUZIE V. PICKER OPERATOR 04/29/19 Lisinopril* (Lisinopril*) 10 Mg Tablet, 10 MG PO DAILY, #30 TAB Prov:CESPEDES,SUZIE V. PICKER OPERATOR 04/29/19 Ciprofloxacin Hcl* (Ciprofloxacin Hcl*) 500 Mg Tablet, 500 MG PO BID@, #84 TAB Prov:CESPEDES,SUZIE V. PICKER OPERATOR 04/29/19 Ceftriaxone Na/Dextrose,Iso (Ceftriaxone 2 gm Piggyback) 2 Gm/50 Ml Froz.piggy, 2 GM IV DAILY for 42 Days Prov:CESPEDES,SUZIE V. PICKER OPERATOR 04/29/19 Insulin Glargine,Hum.rec.anlog (Basaglar Kwikpen U-100) 100 Unit/1 Ml Insuln.pen, 30 UNIT SC WITH BREAKFAST, #1 EA Prov:CESPEDES,SUZIE V. PICKER OPERATOR 04/29/19 Amlodipine Besylate* (Amlodipine Besylate*) 10 Mg Tablet, 10 MG PO DAILY, #30 TAB 3 Refills Prov:PAT PINTO 06/01/18 Reported Medications Gabapentin* (Gabapentin*) 100 Mg Capsule, 100 MG PO TID, #90 CAP 04/22/19 Oxcarbazepine* (Oxcarbazepine*) 300 Mg Tablet, 300 MG PO BID, TAB 04/22/19 Buspirone Hcl* (Buspirone Hcl*) 10 Mg Tab, 10 MG PO DAILY, TAB 04/22/19 Lactobacillus Combo No.11 (Probiotic) 1 Each Cap.sprink, 1 CAP PO DAILY, CAP 05/17/18 Discontinued Reported Medications Lisinopril* (Lisinopril*) 20 Mg Tablet, 20 MG PO DAILY, #30 TAB 04/22/19 Metformin* (Glucophage*) 1,000 Mg Tablet, 1000 MG PO WITH BREAKFAST DINNE, #30 TAB 04/22/19 Chlorthalidone* (Chlorthalidone*) 25 Mg Tablet, 25 MG PO DAILY, TAB 04/22/19 Discontinued Scripts [Insulin Glargine] 100 UNITS/ML SOLN No Conflict Check, 30 UNITS SC DAILY@0800 for 30 Days, #1 BOX 9 Refills Prov:PAT PINTO 06/01/18 Insulin Aspart* (Novolog Insulin Pen*) 100 Unit/Ml Soln, 7 UNIT SC WITH MEALS for 30 Days, #1 BOX 9 Refills Prov:PAT PINTO 06/01/18 Hydralazine Hcl* (Hydralazine Hcl*) 10 Mg Tablet, 10 MG PO Q8 for 30 Days, #90 TAB 3 Refills Prov:PAT PINTO 06/01/18 Ciprofloxacin Hcl* (Ciprofloxacin Hcl*) 250 Mg Tablet, 250 MG PO DAILY@06 for 33 Days, #33 TAB Prov:PAT PINTO 06/01/18 Follow-up Plan Follow-up with [facility] amputation prevention clinic on the fourth floor on . Follow-up with primary care physician in 1 week. Home health nurse to administer antibiotics and wound care. Weightbearing as instructed by your dough raiser. Primary Care Provider Pending Labs Laboratory Tests Test 04/29/19 12:46 04/29/19 17:23 04/29/19 21:20 04/30/19 08:18 Bedside 114 78 97 256 Glucose mg/dL (70-220) mg/dL (70-220) mg/dL (70-220) mg/dL (70-220) Test 04/30/19 12:11 Bedside 246 Glucose mg/dL (70-220) SUZIE CESPEDES NP Apr 30, 2019 12:19
--- NOTE | 2019-04-30 13:02 | CONS ---
Assessment/Plan Assessment/Plan Hospital Course (Demo Recall) No acute changes over night, awake looks comfortable Microbiology: Wound culture growing strep, MSSA, corynebacterium and coag negative staph Chest x-ray on admission revealed no evidence for acute cardiopulmonary process Antimicrobials: Cipro, Rocephin Allergy: Vanco Physical examination: Obese well-developed middle-aged man in no distress head atraumatic normocephalic neck is supple chest rise symmetrical breath sounds diminished to bases heart S1-S2 abdomen soft bowel sounds present extremities with left foot dressing Assessment: 1. S/p sepsis, present on admission 2. Left foot osteomyelitis/gas gangrene status post I&D 3. Diabetes with peripheral neuropathy 4. Obesity 5. Acute kidney insufficiency Plan: Remains stable, plan to dc on current abx for 6 weeks==> orders for CM written Consultation Date/Type/Reason Admit Date/Time Apr 21, 2019 at 22:15 Initial Consult Date Type of Consult id Date/Time of Note DATE: 04/30/19 TIME: 13:02 Exam/Review of Systems Exam Vitals Vital Signs Date Temp Pulse Resp B/P (MAP) Pulse Ox O2 O2 Flow FiO2 Time Delivery Rate 04/30/19 98.1 79 18 129/78 97 07:59 (95) 04/29/19 Room Air 20:30 Intake and Output 04/29/19 04/29/19 04/30/19 1414:59 22:59 06:59 IntakeIntake Total 610 ml BalanceBalance 610 ml Results Results 24hrs Laboratory Tests Test 04/29/19 17:23 04/29/19 21:20 04/30/19 08:18 04/30/19 12:11 Bedside Glucose 78 97 256 H 246 H Medications Medication Current Medications Diagnostic Test (Pha) (Accu-Chek) 1 ea 02 XX Last administered on 04/29/19at 02:05; Admin Dose 1 EA; Start 04/22/19 at 02:00 Miscellaneous Information 1 ea NOTE XX ; Start 04/22/19 at 01:30 Glucose (Glutose) 15 gm Q15M PRN PO DECREASED GLUCOSE; Start 04/22/19 at 01:30 Glucose (Glutose) 22.5 gm Q15M PRN PO DECREASED GLUCOSE; Start 04/22/19 at 01:30 Dextrose (D50w Syringe) 25 ml Q15M PRN IV DECREASED GLUCOSE; Start 04/22/19 at 01:30 Dextrose (D50w Syringe) 50 ml Q15M PRN IV DECREASED GLUCOSE; Start 04/22/19 at 01:30 Glucagon (Glucagen) 1 mg Q15M PRN IM DECREASED GLUCOSE; Start 04/22/19 at 01:30 Glucose (Glutose) 15 gm Q15M PRN BUCCAL DECREASED GLUCOSE; Start 04/22/19 at 01: 30 Buspirone HCl (Buspar) 10 mg DAILY PO Last administered on 04/30/19 08:29; Admin Dose 10 MG; Start 04/22/19 at 09:00 Gabapentin (Neurontin) 100 mg TID PO Last administered on 04/30/19 12:28; Admin Dose 100 MG; Start 04/22/19 at 09:00 Lisinopril (Zestril) 20 mg DAILY PO Last administered on 04/22/19 08:59; Admin Dose 20 MG; Start 04/22/19 at 09:00; Status Hold Oxcarbazepine (Trileptal) 300 mg BID PO Last administered on 04/30/19 08:28; Admin Dose 300 MG; Start 04/22/19 at 09:00 Miscellaneous Information (Pending [facility] Order For Wound Care) This patient mario... PRN PRN XX WOUND CARE; Start 04/22/19 at 02:00 Hydralazine HCl (Apresoline) 25 mg Q8 PO Last administered on 04/30/19 06:33; Admin Dose 25 MG; Start 04/22/19 at 14:00 Acetaminophen (Tylenol Tab) 650 mg Q6H PRN PO MILD PAIN(1-3)OR ELEVATED TEMP Last administered on 04/23/19 20:44; Admin Dose 650 MG; Start 04/22/19 at 21:00 Trazodone HCl (Desyrel) 25 mg HS PO Last administered on 04/29/19 21:22; Admin Dose 25 MG; Start 04/23/19 at 21:00 Morphine Sulfate (morphine) 2 mg Q4H PRN IV SEVERE PAIN LEVEL 7-10 Last administered on 04/22/19 21:45; Admin Dose 2 MG; Start 04/22/19 at 21:30 Ondansetron HCl (Zofran Inj) 4 mg Q4H PRN IV NAUSEA AND/OR VOMITING Last administered on 04/22/19 21:45; Admin Dose 4 MG; Start 04/22/19 at 22:00 Insulin Aspart (Novolog Insulin Pen) 10 unit WITH MEALS SC Last administered on 04/30/19 12:28; Admin Dose 10 UNIT; Start 04/23/19 at 11:30 Insulin Glargine (Lantus) 30 units WITH BREAKFAST SC Last administered on 04/30/19 08:31; Admin Dose 30 UNITS; Start 04/24/19 at 08:00 Lisinopril (Zestril) 10 mg DAILY PO Last administered on 04/30/19 08:29; Admin Dose 10 MG; Start 04/23/19 at 09:30 Heparin Sodium (Porcine) (Heparin (5000 Units/1ml)) 5,000 unit BID SC Last administered on 04/30/19 08:32; Admin Dose 5,000 UNIT; Start 04/23/19 at 21:00 Sodium Hypochlorite (Dakins Diluted (40)) 1 applic DAILY TP Last administered on 04/30/19 08:36; Admin Dose 1 APPLIC; Start 04/24/19 at 09:00 IV Flush (NS 10 ml) 10 ml PRN PRN IV per protocol; Start 04/23/19 at 18:00 Insulin Aspart (Novolog Insulin Pen) NOVOLOG *MILD* ALGORITHM WITH MEALS BEDTIME SC Last administered on 04/30/19 12:27; Admin Dose 3 UNIT; Start 04/23/19 at 21:30 Duloxetine HCl (Cymbalta) 20 mg BID PO Last administered on 04/30/19 08:28; Admin Dose 20 MG; Start 04/24/19 at 21:00 Guaifenesin/ Dextromethorphan (Robitussin Dm Liquid Cup) 5 ml Q4H PRN PO cough Last administered on 04/25/19 00:56; Admin Dose 5 ML; Start 04/25/19 at 00:30 Alteplase, Recombinant (Cathflo (Activase)) 2 mg MAY REPEAT X1 PRN CATHETER IF CATHETER REMAINS OCCULUDED; Start 04/25/19 at 05:30 Amlodipine Besylate (Norvasc) 10 mg DAILY PO Last administered on 04/30/19 08:29; Admin Dose 10 MG; Start 04/26/19 at 09:00 Ceftriaxone Sodium 50 ml @ 100 mls/hr Q24H IVPB Last administered on 04/29/19at 14:27; Admin Dose 100 MLS/HR; Start 04/28/19 at 14:00 Ciprofloxacin (Cipro) 500 mg BID@06,18 PO Last administered on 04/30/19at 06:33; Admin Dose 500 MG; Start 04/28/19 at 18:00 SUREKHA LINDA NP Apr 30, 2019 13:02
[2019-04-30 13:24] VITALS: BP 148/86; PULSE 87; RESP 18
== END 2019-04-30 13:45 | disposition home health service (06) | DRG 853 ==
LOC: E/R 20:24 → EDUNIT# 20:24 → PP2 22:15 → CANRESERV 23:24 → PP2 04-22 01:00 → 5EC 04-24 20:12
PROVIDERS: ADMIT Internal Medicine; ATTEND Internal Medicine
PROC: 0QBP0ZX Excision of Left Metatarsal, Open Approach, Diagnostic (ICD-10-PCS; 2019-04-22)
PROC: 0LBW0ZZ Excision of Left Foot Tendon, Open Approach (ICD-10-PCS; principal; 2019-04-22 13:00)
PROC: 02HV33Z Insertion of Infusion Device into Superior Vena Cava, Percutaneous Approach (ICD-10-PCS; 2019-04-23)
DX: A41.9 Sepsis, unspecified organism (principal); A48.0 Gas gangrene; L03.116 Cellulitis of left lower limb; N17.9 Acute kidney failure, unspecified; E11.52 Type 2 diabetes mellitus with diabetic peripheral angiopathy with gangrene; F33.9 Major depressive disorder, recurrent, unspecified; M86.8X7 Other osteomyelitis, ankle and foot; E11.621 Type 2 diabetes mellitus with foot ulcer; E11.69 Type 2 diabetes mellitus with other specified complication; E11.22 Type 2 diabetes mellitus with diabetic chronic kidney disease; I12.9 Hypertensive chronic kidney disease with stage 1 through stage 4 chronic kidney disease, or unspecified chronic kidney disease; N18.9 Chronic kidney disease, unspecified; D64.89 Other specified anemias; B95.61 Methicillin susceptible Staphylococcus aureus infection as the cause of diseases classified elsewhere; E66.9 Obesity, unspecified; Z68.35 Body mass index [BMI] 35.0-35.9, adult
CPT/HCPCS: 36415; 36569; 71045; 73590; 73610; 73718; 73721; 76937; 80048; 80053; 80061; 81001; 82550; 82962; 83036; 83540; 83605; 83735; 84145; 85025; 85610; 85651; 85730; 86140; 87070; 87075; 87086; 87102; 87116; 88304; 88311; 93005; 93922; 96365; 96375; 97110; 97116; 97161; 97166; 97530; J0690; J0696; J1644; J1815; J2185; J2250; J2270; J2405; J2543; J2795; J3010; J3475; J7030; J7040; L3260

== ENCOUNTER 2019-06-12 10:14 | Emergency (ER) | payer OTHER ==
[~2019-06-12] VITALS: Ht 157.5 cm; Wt 94.6 kg
[~2019-06-12 10:14] MED LIST changes: +ASPI-1044 PO; +BUSP10TA2 PO; +CEFT2FRO2 IV; +CHLO25TA2 PO; -CIPR-193 PO; +CIPR500T4 PO; +DULO20CA43 PO; +GABA100C14 PO; +GABA300C16 PO; +HYDR-3601 PO; -HYDR-3670 PO; +HYDR-3671 PO; +INSU100I12 SQ; +INSU100I33 SC; -Insulin Glargine SC; +LISI-471 PO; +LISI10TA2 PO; +METF100010 PO; +METO-335 PO; +NAPR-985 PO; -NOVO3I SC; +OXCA300T41 PO
[2019-06-12 10:20] VITALS: Ht 157.5 cm; Wt 94.6 kg
[2019-06-12] MEDS ORDERED: ALPRAZOLAM 0.25 MG TAB PO ONE (14:00)
[2019-06-12 14:48] VITALS: BP 127/82; PULSE 75; RESP 18
== END 2019-06-12 14:48 | disposition home or self-care (01) ==
LOC: E/R 10:14
DX: F41.9 Anxiety disorder, unspecified (principal); I10 Essential (primary) hypertension; M86.9 Osteomyelitis, unspecified; G44.209 Tension-type headache, unspecified, not intractable; E11.9 Type 2 diabetes mellitus without complications; Z79.4 Long term (current) use of insulin
CPT/HCPCS: 36415; 71045; 80053; 83690; 84484; 85025; 93005; Z7502; Z7610

== ENCOUNTER 2019-06-20 10:26 | Inpatient (IN) | payer OTHER ==
[~2019-06-20] VITALS: Ht 157.5 cm; Wt 92.1 kg
[~2019-06-20 10:26] MED LIST changes: -AMLO-147 PO; +AMLO5TAB4 PO; -ASPI-1044 PO; +ASPI-1163 PO; +BIOT10004 PO; -CEFT2FRO2 IV; +CINN500C9 PO; -CIPR500T4 PO; +CYCL100C21 PO; -DULO20CA43 PO; -GABA100C14 PO; -INSU100I12 SQ; +IRON1TAB78 PO; -LACT1CAP56 PO; +LEVO750T8 PO; -LISI10TA2 PO; +MAGN1POW15 MC; +MAGN500C PO
[2019-06-20] MEDS ORDERED: PIPER-TAZO 3.375 GM IV (PMX) 100 ML IVPB ONE (12:30)
[2019-06-20] MEDS ORDERED: ACETAMINOPHEN 325 MG TAB PO PRN ×2 (13:00→19:30)
[2019-06-20] MEDS ORDERED: ONDANSETRON 4 MG INJ IV PRN ×2 (13:00→19:30)
[2019-06-20 16:15] VITALS: BP 123/74; PULSE 80; RESP 18
[2019-06-20 17:13] VITALS: Ht 157.5 cm; Wt 92.1 kg
[2019-06-20] MEDS ORDERED: NACL 0.9% 3 ML SYG IV SCH (19:30)
[2019-06-20] MEDS ORDERED: morphine 2 MG INJ IV PRN (19:30)
[2019-06-20] MEDS ORDERED: DOCUSATE SODIUM 100 MG CAP PO PRN (19:30)
[2019-06-20] MEDS ORDERED: ZOLPIDEM 5 MG TAB PO PRN (19:30)
[2019-06-20 20:00] VITALS: BP 146/91; PULSE 84; RESP 18
[2019-06-20] MEDS: SOD CHLORIDE 0.9% 1,000 ML IV SCH (20:18)
[2019-06-20] MEDS: HYDROCODONE/APAP (5/325) TAB PO PRN (20:25)
[2019-06-20] MEDS: PIPER-TAZO 2.25 GM (PMX) 50 ML IVPB SCH (22:31)
[2019-06-21] VITALS (17 sets, daily range): BP systolic 131–171; BP diastolic 63–89; PULSE 71–88; RESP 13–19
[2019-06-21] MEDS ORDERED: GLUCOSE GEL 15 GRAM TUBE BUCCAL PRN (00:30)
[2019-06-21] MEDS ORDERED: DEXTROSE 50% 50 ML SYRINGE IV PRN ×2 (00:30)
[2019-06-21] MEDS ORDERED: GLUCAGON 1 MG INJ IM PRN (00:30)
[2019-06-21] MEDS ORDERED: GLUCOSE GEL 15 GRAM TUBE PO PRN ×2 (00:30)
[2019-06-21] MEDS ORDERED: INSULIN ASPART [NOVOLOG] 3 ML PEN SC SCH ×3 (01:30→21:00)
[2019-06-21] MEDS: INSULIN ASPART [NOVOLOG] 3 ML PEN SC SCH ×6 (01:31→20:26)
[2019-06-21] MEDS: ACCU-CHEK XX SCH (02:00)
[2019-06-21] MEDS: SOD CHLORIDE 0.9% 1,000 ML IV SCH ×2 (05:13→08:45)
[2019-06-21] MEDS: PIPER-TAZO 2.25 GM (PMX) 50 ML IVPB SCH ×3 (05:46→22:17)
[2019-06-21] MEDS ORDERED: LIDOCAINE 2% (SDV) 5 ML INJ ONE ×2 (14:29→15:34)
[2019-06-21] MEDS ORDERED: PROPOFOL 0 ML ONE (14:29)
[2019-06-21] MEDS ORDERED: FENTAnyl 50 MCG/ML VIAL ONE (14:30)
[2019-06-21] MEDS ORDERED: MIDAZOLAM 1 MG/ML 2 ML INJ ONE (14:30)
[2019-06-21] MEDS ORDERED: LIDOCAINE 1% (MPF) 30 ML INJ ONE (15:07)
[2019-06-21] MEDS ORDERED: BUPIVACAINE 0.5% (SDV) 30 ML INJ ONE (15:07)
[2019-06-21] MEDS ORDERED: LABETALOL HCL 20MG INJ IV PRN (15:30)
[2019-06-21] MEDS ORDERED: ONDANSETRON 4 MG INJ IV PRN (15:30)
[2019-06-21] MEDS ORDERED: hydrALAzine 20 MG INJ IV PRN (15:30)
[2019-06-21] MEDS ORDERED: PROCHLORPERAZINE 10 MG INJ IV PRN (15:30)
[2019-06-21] MEDS ORDERED: DIPHENHYDRAMINE 50 MG INJ IV PRN (15:30)
[2019-06-21] MEDS ORDERED: FENTAnyl 50 MCG/ML VIAL IV PRN (15:30)
[2019-06-21] MEDS ORDERED: MEPERIDINE 25 MG INJ IV PRN (15:30)
[2019-06-21] MEDS ORDERED: HYDROmorphONE 1 MG/5 ML IV SYRINGE IV PRN ×3 (15:30)
[2019-06-21] MEDS ORDERED: PROPOFOL 20 ML ONE ×2 (15:34→15:52)
[2019-06-21] MEDS ORDERED: VANCOMYCIN 1 GM INJ ONE (15:46)
[2019-06-21] MEDS ORDERED: POLYMYXIN B 500000 UNIT INJ ONE (15:46)
[2019-06-21] MEDS ORDERED: FAMOTIDINE 20 MG INJ ONE (15:53)
[2019-06-21] MEDS ORDERED: ONDANSETRON 4 MG INJ ONE (15:53)
[2019-06-21] MEDS ORDERED: PHENYLephrine (100 MCG/ML) 10ML SYG ONE (15:58)
[2019-06-21] MEDS ORDERED: EPHEDrine 25 MG/5 ML SYG ONE (15:58)
[2019-06-21] MEDS ORDERED: TOBRAMYCIN 1.2 GM POWDER ONE (16:06)
[2019-06-21] MEDS ORDERED: BACITRACIN 50000 UNITS INJ ONE (17:06)
[2019-06-21] MEDS: CLINDAMYCIN 900 MG (PMX) 50 ML IVPB SCH (20:21)
[2019-06-21] MEDS: HYDROCODONE/APAP (5/325) TAB PO PRN (20:38)
[2019-06-22 02:00] VITALS: BP 129/77; PULSE 78; RESP 18
[2019-06-22] MEDS: ACCU-CHEK XX SCH (02:00)
[2019-06-22] MEDS: CLINDAMYCIN 900 MG (PMX) 50 ML IVPB SCH ×3 (04:32→20:56)
[2019-06-22] MEDS: PIPER-TAZO 2.25 GM (PMX) 50 ML IVPB SCH ×3 (05:55→23:01)
[2019-06-22] MEDS ORDERED: INSULIN ASPART [NOVOLOG] 3 ML PEN SC SCH (07:00)
[2019-06-22] MEDS: INSULIN ASPART [NOVOLOG] 3 ML PEN SC SCH ×4 (07:52→21:00)
[2019-06-22 08:32] VITALS: BP 169/88; PULSE 78; RESP 18
[2019-06-22] MEDS: ASPIRIN (EC) 81 MG TAB PO SCH (08:37)
[2019-06-22 15:01] VITALS: BP 146/84; PULSE 78; RESP 20
[2019-06-22 20:00] VITALS: BP 156/88; PULSE 79; RESP 18
[2019-06-22] MEDS: HYDROCODONE/APAP (5/325) TAB PO PRN (21:00)
[2019-06-22] MEDS: GABAPENTIN 300 MG CAP PO SCH (21:01)
[2019-06-22] MEDS: OXCARBAZEPINE 300 MG TAB PO SCH (21:01)
[2019-06-22] MEDS: BUSPIRONE 10 MG TAB PO SCH (21:02)
[2019-06-23 02:00] VITALS: BP 139/90; PULSE 80; RESP 18
[2019-06-23] MEDS: ACCU-CHEK XX SCH (02:00)
[2019-06-23] MEDS: CLINDAMYCIN 900 MG (PMX) 50 ML IVPB SCH ×3 (03:46→20:23)
[2019-06-23] MEDS: PIPER-TAZO 2.25 GM (PMX) 50 ML IVPB SCH ×2 (05:43→14:22)
[2019-06-23 07:51] VITALS: BP 136/85; PULSE 67; RESP 16
[2019-06-23] MEDS: GABAPENTIN 300 MG CAP PO SCH ×2 (08:21→21:33)
[2019-06-23] MEDS: ASPIRIN (EC) 81 MG TAB PO SCH (08:21)
[2019-06-23] MEDS: OXCARBAZEPINE 300 MG TAB PO SCH ×3 (08:21→21:34)
[2019-06-23] MEDS: BUSPIRONE 10 MG TAB PO SCH ×2 (08:21→21:33)
[2019-06-23] MEDS: INSULIN ASPART [NOVOLOG] 3 ML PEN SC SCH ×4 (08:26→21:42)
[2019-06-23 13:57] VITALS: BP 134/73; PULSE 60; RESP 16
[2019-06-23 19:56] VITALS: BP 135/68; PULSE 66; RESP 18
[2019-06-24 02:00] VITALS: BP 152/78; PULSE 67; RESP 18
[2019-06-24] MEDS: ACCU-CHEK XX SCH ×2 (02:18→21:00)
[2019-06-24] MEDS: CLINDAMYCIN 900 MG (PMX) 50 ML IVPB SCH ×2 (04:27→12:34)
[2019-06-24] MEDS ORDERED: CIPROFLOXACIN 250 MG TAB PO SCH (06:00)
[2019-06-24 07:47] VITALS: BP 160/80; PULSE 61; RESP 20
[2019-06-24] MEDS: INSULIN ASPART [NOVOLOG] 3 ML PEN SC SCH ×4 (08:10→21:13)
[2019-06-24] MEDS: BUSPIRONE 10 MG TAB PO SCH ×2 (09:26→21:03)
[2019-06-24] MEDS: GABAPENTIN 300 MG CAP PO SCH ×2 (09:26→21:03)
[2019-06-24] MEDS: OXCARBAZEPINE 300 MG TAB PO SCH ×3 (09:26→21:03)
[2019-06-24] MEDS: ASPIRIN (EC) 81 MG TAB PO SCH (09:26)
[2019-06-24 14:12] VITALS: BP 178/90; PULSE 69; RESP 20
[2019-06-24] MEDS: DAPTOMYCIN IVPB SCH (15:53)
[2019-06-24] MEDS: SOD CHLORIDE 0.9% IVPB SCH (15:53)
[2019-06-24 19:56] VITALS: BP 118/68; PULSE 74; RESP 18
[2019-06-24] MEDS: metFORMIN 500 MG TAB PO SCH (21:03)
[2019-06-24] MEDS: LACTOBACILLUS RHAMNOSUS CAP PO SCH (21:03)
[2019-06-24 21:05] VITALS: BP 151/90; PULSE 68
[2019-06-24] MEDS: LISINOPRIL 20 MG TAB PO SCH (21:06)
[2019-06-24 22:00] VITALS: BP 169/83; PULSE 70
[2019-06-25] MEDS: HYDROCODONE/APAP (5/325) TAB PO PRN (00:12)
[2019-06-25 01:35] VITALS: BP 118/74; PULSE 70; RESP 18
[2019-06-25] MEDS: ACCU-CHEK XX SCH ×5 (02:00→21:00)
[2019-06-25 05:55] VITALS: BP 117/69; PULSE 74
[2019-06-25] MEDS: GABAPENTIN 300 MG CAP PO SCH ×2 (08:26→21:09)
[2019-06-25] MEDS: metFORMIN 500 MG TAB PO SCH ×2 (08:26→21:08)
[2019-06-25] MEDS: LACTOBACILLUS RHAMNOSUS CAP PO SCH ×2 (08:26→21:09)
[2019-06-25] MEDS: OXCARBAZEPINE 300 MG TAB PO SCH ×3 (08:26→21:07)
[2019-06-25] MEDS: BUSPIRONE 10 MG TAB PO SCH ×2 (08:26→21:08)
[2019-06-25] MEDS: ASPIRIN (EC) 81 MG TAB PO SCH (08:26)
[2019-06-25] MEDS: LISINOPRIL 20 MG TAB PO SCH (08:27)
[2019-06-25] MEDS: METOPROLOL (XL) 25 MG TAB PO SCH (08:27)
[2019-06-25] MEDS: INSULIN ASPART [NOVOLOG] 3 ML PEN SC SCH ×4 (08:37→21:24)
[2019-06-25 08:54] VITALS: BP 123/65; PULSE 71; RESP 18
[2019-06-25] MEDS ORDERED: INSULIN GLARGINE [LANTus] (100 UNITS/ML) SYG SC ONE (14:00)
[2019-06-25] MEDS: SOD CHLORIDE 0.9% IVPB SCH (15:12)
[2019-06-25] MEDS: DAPTOMYCIN IVPB SCH (15:12)
[2019-06-25 15:20] VITALS: BP 113/72; PULSE 62; RESP 18
[2019-06-25 20:07] VITALS: BP 151/91; PULSE 75; RESP 16
[2019-06-26] MEDS: ACCU-CHEK XX SCH ×3 (02:00→12:50)
[2019-06-26 02:14] VITALS: BP 134/83; PULSE 71; RESP 18
[2019-06-26 07:56] VITALS: BP 109/53; PULSE 69; RESP 19
[2019-06-26] MEDS ORDERED: INSULIN GLARGINE [LANTus] (100 UNITS/ML) SYG SC SCH (08:00)
[2019-06-26] MEDS: INSULIN ASPART [NOVOLOG] 3 ML PEN SC SCH ×2 (08:20→12:56)
[2019-06-26] MEDS: ASPIRIN (EC) 81 MG TAB PO SCH (09:11)
[2019-06-26] MEDS: BUSPIRONE 10 MG TAB PO SCH (09:11)
[2019-06-26] MEDS: LACTOBACILLUS RHAMNOSUS CAP PO SCH (09:11)
[2019-06-26] MEDS: GABAPENTIN 300 MG CAP PO SCH (09:12)
[2019-06-26] MEDS: LISINOPRIL 20 MG TAB PO SCH (09:12)
[2019-06-26] MEDS: OXCARBAZEPINE 300 MG TAB PO SCH ×2 (09:12→14:35)
[2019-06-26] MEDS: METOPROLOL (XL) 25 MG TAB PO SCH (09:13)
[2019-06-26] MEDS: metFORMIN 500 MG TAB PO SCH (09:18)
[2019-06-26] MEDS: DAPTOMYCIN IVPB SCH (14:36)
[2019-06-26] MEDS: SOD CHLORIDE 0.9% IVPB SCH (14:36)
[2019-06-26 14:49] VITALS: BP 117/59; PULSE 68; RESP 17
== END 2019-06-26 17:30 | disposition home health service (06) | DRG 616 ==
LOC: E/R 10:26 → 2NE 12:43
PROVIDERS: ADMIT Internal Medicine; ATTEND Internal Medicine
PROC: 0QBP0ZZ Excision of Left Metatarsal, Open Approach (ICD-10-PCS; 2019-06-21)
PROC: 0Y6N0Z9 Detachment at Left Foot, Partial 1st Ray, Open Approach (ICD-10-PCS; principal; 2019-06-21 14:30)
DX: E11.621 Type 2 diabetes mellitus with foot ulcer (principal); A48.0 Gas gangrene; L03.116 Cellulitis of left lower limb; M86.8X7 Other osteomyelitis, ankle and foot; M00.9 Pyogenic arthritis, unspecified; E11.52 Type 2 diabetes mellitus with diabetic peripheral angiopathy with gangrene; B96.89 Other specified bacterial agents as the cause of diseases classified elsewhere; E11.22 Type 2 diabetes mellitus with diabetic chronic kidney disease; I12.9 Hypertensive chronic kidney disease with stage 1 through stage 4 chronic kidney disease, or unspecified chronic kidney disease; N17.9 Acute kidney failure, unspecified; N18.9 Chronic kidney disease, unspecified; E11.69 Type 2 diabetes mellitus with other specified complication; E11.42 Type 2 diabetes mellitus with diabetic polyneuropathy; E88.81 Metabolic syndrome and other insulin resistance; F12.90 Cannabis use, unspecified, uncomplicated; D64.9 Anemia, unspecified; Z79.4 Long term (current) use of insulin; Z89.421 Acquired absence of other right toe(s); F10.20 Alcohol dependence, uncomplicated
CPT/HCPCS: 36573; 71045; 73718; 80048; 80053; 81003; 82043; 82550; 82962; 83036; 83735; 84100; 84155; 84300; 84443; 85025; 85610; 85651; 86140; 87070; 88304; 88311; 93005; 93922; 97161; 97166; C1713; J1815; J2250; J2270; J2370; J2405; J2543; J3010; J3370; J7030